=== PATIENT | male | born 1945 | race African-American/Black ===

== ENCOUNTER 2018-07-17 11:20 | Inpatient (IN) ==
[2018-07-17] MEDS ORDERED: Morphine Inj 4 MG/ML Vial IV.PUSH ONE (11:38)
[2018-07-17] MEDS ORDERED: Sod Chloride 0.9% Inj 1,000 ML IV.SIG ONE (11:38)
[2018-07-17 12:10] LABS: Baso % (Auto) 0.5 % (0.0-2.0); Eos # (Auto) 0.1 th/mm3 (0.0-0.4); Hematocrit 43.6 % (39.0-51.0); Hemoglobin 14.4 gm/dL (13.0-17.0); Lymph # (Auto) 1.5 th/mm3 (1.0-4.8); Lymph % (Auto) 42.2 % (9.0-44.0); Mean Corpuscular HGB Conc 33.1 % (32.0-36.0); Mean Corpuscular Hemoglobin 30.8 pg (27.0-34.0); Mean Corpuscular Volume 93.2 fL (80.0-100.0); Mean Platelet Volume 9.2 fL (7.0-11.0); Mono # (Auto) 0.3 th/mm3 (0.0-0.9); Mono % (Auto) 7.8 % (0.0-8.0); Neut # (Auto) 1.7 th/mm3 (1.8-7.7); Neut % (Auto) 47.5 % (16.0-70.0); Platelet Count 135 th/mm3 (150-450); Red Blood Count 4.68 mil/mm3 (4.50-5.90); Red Cell Distribution Width 13.9 % (11.6-17.2); White Blood Count 3.5 th/mm3 (4.0-11.0)
--- NOTE | 2018-07-17 12:23 | ED ---
HPI General Chief complaint: Nausea/Vomiting/Diarrhea Stated complaint: GI Time Seen by Provider: 07/17/18 11:34 Source: patient and family Mode of arrival: ambulatory Limitations: no limitations History of Present Illness HPI Narrative: 72-year-old male the presents to the ED for evaluation of nausea vomiting diarrhea and abdominal pain. Patient reports that the symptoms have been ongoing for about 3 days but worse today. Per patient the pain is mostly in the lower abdomen. Per patient he feels like he has gas and he continues to have gas. Per patient he does not get relief. He does not take anything for this. He denies any diarrhea but states that he is on multiple bowels today. He states that he has not vomited but he does feel nauseous and feels like something is going to the top of his chest. Per patient is was yesterday but not today. Per patient he came here because the symptoms are not improving. Per patient the pain is 8 out of 10. Denies any chest pain. No shortness of breath. No fevers chills or sweats. Related Data Home Medications Medication Instructions Recorded Confirmed atorvastatin 40 mg PO DAILY 07/17/18 07/17/18 metoprolol succinate 50 mg PO DAILY 07/17/18 07/17/18 pantoprazole [Protonix] 40 mg PO DAILY 07/17/18 07/17/18 tamsulosin 0.4 mg PO DAILY 07/17/18 07/17/18 Allergies Allergy/AdvReac Type Severity Reaction Status Date / Time No Known Allergies Allergy Verified 07/17/18 11:34 Review of Systems ROS: all other systems reviewed are negative [facility] Medical History Medical History BPH (benign prostatic hyperplasia) (Acute) GERD (gastroesophageal reflux disease) (Acute) High cholesterol (Acute) Hypertension (Acute) Surgical History Surgical History H/O cervical spine surgery (Acute) History of colon surgery (Acute) History of left cataract surgery (Acute) S/P triple vessel bypass (Acute) Family History Family History Other Family history unknown Social History Social History Substance History: No History of Abuse Second Hand Smoke Exposure: No Smoking Status: Former smoker Tobacco Type: Cigarettes How Often Do You Have a Drink Containing Alcohol: Never Hx Recent Travel: No Recent Travel in [facility] within the Last 8 Weeks: No Recent Out of Country Travel within the Last 8 Weeks: No Immunization History Tetanus Immunization: <5 Years Exam Narrative Exam Narrative: GENERAL: Well appearing SKIN: Focused skin assessment warm/dry. HEAD: Atraumatic. Normocephalic. EYES: Pupils equal and round. No scleral icterus. No injection or drainage. ENT: No nasal bleeding or discharge. Mucous membranes pink and moist. NECK: Trachea midline. No JVD. CARDIOVASCULAR: Regular rate and rhythm. No murmur appreciated. RESPIRATORY: No accessory muscle use. Clear to auscultation. Breath sounds equal bilaterally. GASTROINTESTINAL: Abdomen soft, depressible pain on the lower abdomen., nondistended. Hepatic and splenic margins not palpable. MUSCULOSKELETAL: No obvious deformities. No clubbing. No cyanosis. No edema. Full range of motion of the upper and lower extremities bilaterally. 2+ pulses bilaterally. NEUROLOGICAL: Awake and alert. No obvious cranial nerve deficits. Motor grossly within normal limits. Normal speech. PSYCHIATRIC: Appropriate mood and affect; insight and judgment normal. Course Initial Documented Vital Signs Temperature 97.2 F L 07/17/18 11:32 Pulse Rate 53 L 07/17/18 11:32 Blood Pressure 145/83 H 07/17/18 11:32 Pulse Oximetry 98 07/17/18 11:32 Last Documented Vital Signs Temperature 97.2 F L 07/17/18 11:32 Pulse Rate 45 L 07/17/18 15:33 Respiratory Rate 18 07/17/18 15:33 Blood Pressure 177/85 H 07/17/18 15:33 Pulse Oximetry 100 07/17/18 15:33 Medical Decision Making [facility] Narrative Medical decision making narrative: 72-year-old male the presents to the ED for evaluation of abdominal pain. Patient was properly examined and found to have signs and symptoms consistent appears to be abdominal pain. Labs and imaging ordered. IV fluids, pain medications and antiemetics given. Labs and imaging showed what appears to be possible small bowel obstruction. Otherwise lab work unremarkable. Patient is also bradycardic on EKG. He is completely symptomatic from the bradycardia. At this time recommendations admission for NG tube placement and further evaluation and treatment. Patient agrees with this plan. Case discussed with my attending Dr. Figueroa who was made aware of findings and agrees with plan. Patient was admitted to Dr. Carreon who agrees admission to his service. Medical Screen Exam Complete: Yes Emergency Medical Condition: Yes Differential Diagnosis Differential Diagnosis: Colitis versus diverticulitis versus acute abdomen versus gastroenteritis versus obstruction Medical Records Medical records reviewed: Yes I reviewed the patient's medical records. Lab Data Lab results reviewed: Yes I reviewed the patient's lab results. Result diagrams: 07/17/18 12:00 07/17/18 12:00 Lab Results 07/17/18 07/17/18 07/17/18 Range/Units 12:00 12:00 12:00 WBC 3.5 L (4.0-11.0) th/mm3 RBC 4.68 (4.50-5.90) mil/mm3 Hgb 14.4 (13.0-17.0) gm/dL Hct 43.6 (39.0-51.0) % MCV 93.2 (80.0-100.0) fL MCH 30.8 (27.0-34.0) pg MCHC 33.1 (32.0-36.0) % RDW 13.9 (11.6-17.2) % Plt Count 135 L (150-450) th/mm3 MPV 9.2 (7.0-11.0) fL Neut % (Auto) 47.5 (16.0-70.0) % Lymph % (Auto) 42.2 (9.0-44.0) % [place] % (Auto) 7.8 (0.0-8.0) % Eos % (Auto) 2.0 (0.0-4.0) % Baso % (Auto) 0.5 (0.0-2.0) % Neut # (Auto) 1.7 L (1.8-7.7) th/mm3 Lymph # (Auto) 1.5 (1.0-4.8) th/mm3 [place] # (Auto) 0.3 (0.0-0.9) th/mm3 Eos # (Auto) 0.1 (0.0-0.4) th/mm3 Baso # (Auto) 0.0 (0.0-0.2) th/mm3 WBC Differential . Differential Comment Auto diff final Sodium 140 (136-145) meq/L Potassium 4.2 (3.5-5.1) meq/L Chloride 106 (98-107) meq/L Carbon Dioxide 27.4 (21.0-32.0) meq/L Anion Gap 7 (5-15) meq/L BUN 12 (7-18) mg/dL Creatinine 1.10 (0.60-1.30) mg/dL Estimated GFR 80 L (>89) mL/min Random Glucose 107 H (74-106) mg/dL Lactic Acid 0.8 (0.4-2.0) mmol/L Calcium 8.3 L (8.5-10.1) mg/dL Total Bilirubin 0.5 (0.2-1.0) mg/dL AST 12 L (15-37) U/L ALT 20 (12-78) U/L Alkaline Phosphatase 79 (45-117) U/L Troponin I (0.02-0.05) ng/mL Total Protein 7.6 (6.4-8.2) g/dL Albumin 3.6 (3.4-5.0) g/dL Lipase 58 L (73-393) U/L Urine Color (Yellw/Straw) Urine Clarity (Clear) Urine pH (5.0-8.5) Ur Specific [place] (1.002-1.035) Urine Protein (Neg-Trace) mg/dL Urine Glucose (UA) (Negative) mg/dL Urine Ketones (Negative) mg/dL Urine Occult Blood (Negative) Urine Nitrate (Negative) Urine Bilirubin (Negative) Urine Urobilinogen (Less than 2) mg/dL Ur Leukocyte Esterase (Negative) Urine RBC (0-3) /hpf Urine WBC (0-5) /hpf Urine Mucus (Occasional) /lpf Micro UA Comment Ur Microscopic Review Urine Culture Comments 07/17/18 07/17/18 Range/Units 12:00 12:15 WBC (4.0-11.0) th/mm3 RBC (4.50-5.90) mil/mm3 Hgb (13.0-17.0) gm/dL Hct (39.0-51.0) % MCV (80.0-100.0) fL MCH (27.0-34.0) pg MCHC (32.0-36.0) % RDW (11.6-17.2) % Plt Count (150-450) th/mm3 MPV (7.0-11.0) fL Neut % (Auto) (16.0-70.0) % Lymph % (Auto) (9.0-44.0) % [place] % (Auto) (0.0-8.0) % Eos % (Auto) (0.0-4.0) % Baso % (Auto) (0.0-2.0) % Neut # (Auto) (1.8-7.7) th/mm3 Lymph # (Auto) (1.0-4.8) th/mm3 [place] # (Auto) (0.0-0.9) th/mm3 Eos # (Auto) (0.0-0.4) th/mm3 Baso # (Auto) (0.0-0.2) th/mm3 WBC Differential Differential Comment Sodium (136-145) meq/L Potassium (3.5-5.1) meq/L Chloride (98-107) meq/L Carbon Dioxide (21.0-32.0) meq/L Anion Gap (5-15) meq/L BUN (7-18) mg/dL Creatinine (0.60-1.30) mg/dL Estimated GFR (>89) mL/min Random Glucose (74-106) mg/dL Lactic Acid (0.4-2.0) mmol/L Calcium (8.5-10.1) mg/dL Total Bilirubin (0.2-1.0) mg/dL AST (15-37) U/L ALT (12-78) U/L Alkaline Phosphatase (45-117) U/L Troponin I Less than 0.02 L (0.02-0.05) ng/mL Total Protein (6.4-8.2) g/dL Albumin (3.4-5.0) g/dL Lipase (73-393) U/L Urine Color Yellow (Yellw/Straw) Urine Clarity Hazy H (Clear) Urine pH 5.0 (5.0-8.5) Ur Specific [place] 1.016 (1.002-1.035) Urine Protein Negative (Neg-Trace) mg/dL Urine Glucose (UA) Negative (Negative) mg/dL Urine Ketones Negative (Negative) mg/dL Urine Occult Blood Negative (Negative) Urine Nitrate Negative (Negative) Urine Bilirubin Negative (Negative) Urine Urobilinogen Less than 2 (Less than 2) mg/dL Ur Leukocyte Esterase Negative (Negative) Urine RBC Less than 1 (0-3) /hpf Urine WBC 1 (0-5) /hpf Urine Mucus Few H (Occasional) /lpf Micro UA Comment Culture not ind Ur Microscopic Review Not Reportable Urine Culture Comments Culture not ind Imaging Data Attestation: I personally reviewed and interpreted this imaging study as follows : Radiologist's impression: Abdomen/Pelvis CT 07/17/18 11:38 CONCLUSION: 1. Several loops of marginally distended proximal ileum in the left abdomen with mild fecalization and diffuse bowel wall thickening. Relative transition point in the midabdomen and left upper quadrant with decompressed proximal and distal bowel loops. Overall findings are most consistent with a partial small bowel obstruction likely secondary to adhesions. Findings are new since 2016 although the fecalization suggests a somewhat subacute etiology. No evidence for bowel infarction or perforation. 2. 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 3. Stable additional ancillary findings, as above. Abdomen X-Ray 07/17/18 15:41 CONCLUSION: 1. NGT just beyond the GE junction in the stomach. 2. Partially distended air-filled small bowel loops in the upper abdomen consistent with findings on CT exam earlier today. ECG Data Attestation: I personally reviewed and interpreted this ECG as follows: Interpretation: EKG shows sinus bradycardia with no sign of acute ischemia. No ST elevations. Read by me and attending. Discharge Plan Discharge Disposition Patient Disposition: 30 Still Patient Discharge Details Diagnosis: Small bowel obstruction Physicians Team ED Provider: Kathrin Figueroa ED Midlevel Provider: Duc Allan Primary Care Provider: Layla Chirinos Attending Provider: Harvinder Carreon Other Providers: Jakub Conner ; [employer] Status ED Status: Admitted Patient
[2018-07-17 12:34] LABS: Alanine Aminotransferase 20 U/L (12-78); Albumin 3.6 g/dL (3.4-5.0); Anion Gap 7 meq/L (5-15); Aspartate Aminotransferase 12 U/L (15-37); Blood Urea Nitrogen 12 mg/dL (7-18); Calcium 8.3 mg/dL (8.5-10.1); Carbon Dioxide 27.4 meq/L (21.0-32.0); Chloride 106 meq/L (98-107); Glomerular Filtration Rate 80 mL/min (>89); Glucose,Random 107 mg/dL (74-106); Lipase 58 U/L (73-393); Potassium 4.2 meq/L (3.5-5.1); Sodium 140 meq/L (136-145)
[2018-07-17 12:37] LABS: Alkaline Phosphatase 79 U/L (45-117); Total Protein 7.6 g/dL (6.4-8.2)
[2018-07-17 12:47] LABS: Bilirubin,Urine Negative (Negative); Clarity,Urine Hazy (Clear); Color,Urine Yellow (Yellw/Straw); Glucose,Urine (UA) Negative (Negative); Leukocyte Esterase,Urine Negative (Negative); Mucus,Urine Few /lpf (Occasional); Nitrite,Urine Negative (Negative); Specific Gravity,Urine 1.016 (1.002-1.035)
--- NOTE | 2018-07-17 15:16 | CT ---
EXAM DATE: 07/17/2018 2:47 PM EDT AGE/SEX: 72 years / Male INDICATIONS: Abdomen pain with nausea, vomiting, and diarrhea CLINICAL DATA: This is the patient's initial encounter. Patient reports that signs and symptoms have been present for 3 days and indicates a pain score of 5/10. MEDICAL/SURGICAL HISTORY: Hypertension. . Colon surgery, Triple bypass surgery ORAL CONTRAST: No oral contrast ingested. RADIATION DOSE: 7.01 CTDI (mGy) COMPARISON: [facility], CTA AORTA W/ RUNOFF, 09/09/2017. . TECHNIQUE: Multiple contiguous axial images were obtained through the abdomen and pelvis following b olus infusion of 96ML ml Omnipaque 350 (iohexol) nonionic water-soluble contrast as a single exam d ose. No oral contrast ingested. Using automated exposure control and adjustment of the mA and/or kV according to patient size, radiation dose was kept as low as reasonably achievable to obtain optimal diagnostic quality images. DICOM format image data is available electronically for review and compar pamela. FINDINGS: LOWER LUNGS: Minimal groundglass opacities at the lung bases. LIVER: Mild diffusely decreased hepatic density without gross focal mass or intrapelvic ductal dilat ation. SPLEEN: Homogeneous density without enlargement. PANCREAS: Unremarkable without mass or calcification. KIDNEYS: Kidneys demonstrate symmetrical enhancement and are symmetrical in size without evidence fo r radiopaque renal calculi or hydronephrosis. ADRENAL GLANDS: Unremarkable. AORTA: Mild to moderate diffuse atherosclerotic calcifications. Focal distal aortic ectasia measuring up to 2.5 cm. Left common iliac artery aneurysm containing moderate mural thrombus measuring up to 2 .2 cm. There is mild stenosis of the distal common iliac arteries secondary to nearly circumferential mural thrombus/noncalcified plaque. BOWEL/MESENTERY: There are several loops of proximal ileum in the left abdomen that demonstrates cir cumferential wall thickening and are marginally distended with fluid and demonstrated mild fecalizati on. This is a new finding from 09/09/2017 CT exam. More proximal jejunal and distal ileal loops are no rmal in caliber with relative transition points in the anterior mid abdomen and left upper quadrant. Mild sigmoid diverticulosis without inflammatory change to suggest diverticulitis. Surgical anastomos is in the ascending colon. No significant free fluid or drainable fluid collection. No free air. ABDOMINAL WALL: Intact. RETROPERITONEUM: No evidence of adenopathy in the retrocrural, para-aortic, or deep pelvic regions. BLADDER: Contours are smooth. REPRODUCTIVE: No abnormal masses or calcifications seen. BONY STRUCTURES: Degenerative spondylosis of the lower lumbar spine most prominently at L5-S1. CONCLUSION: 1. Several loops of marginally distended proximal ileum in the left abdomen with mild fecalization a nd diffuse bowel wall thickening. Relative transition point in the midabdomen and left upper quadrant with decompressed proximal and distal bowel loops. Overall findings are most consistent with a parti al small bowel obstruction likely secondary to adhesions. Findings are new since 09/09/2017 although t he fecalization suggests a somewhat subacute etiology. No evidence for bowel infarction or perforatio n. 2. 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 3. Stable additional ancillary findings, as above. Electronically signed by: Randell Fraire MD 07/17/2018 3:15 PM EDT
[2018-07-17] MEDS ORDERED: Bisacodyl 10 MG Supp RECTAL PRN (15:46)
[2018-07-17] MEDS ORDERED: Morphine Inj 4 MG/ML Vial IV.PUSH PRN ×2 (15:48)
[2018-07-17] MEDS ORDERED: Naloxone Inj 0.4 MG/ML Vial IV.PUSH PRN (15:48)
[2018-07-17] MEDS: Heparin - SQ 10,000 UNITS/ML Vial SQ SCH ×2 (16:00→23:33)
--- NOTE | 2018-07-17 16:00 | XR ---
EXAM DATE: 07/17/2018 3:41 PM EDT AGE/SEX: 72 years / Male INDICATIONS: NG tube placement CLINICAL DATA: This is the patient's initial encounter. Patient reports that signs and symptoms have been present for 1 day and indicates a pain score of 0/10. MEDICAL/SURGICAL HISTORY: . Hypertension. . . Colon surgery, Triple bypass surgery COMPARISON: [facility] [place], CT ABDOMEN & PELVIS W CONTRAST, 07/17/2018. . FINDINGS: There is an NGT with tip in the proximal stomach. Multiple loops of marginally distended air-filled b owel in the upper abdomen. No free air or pneumatosis. Air is seen in the colon. Osseous structures a re intact. CONCLUSION: 1. NGT just beyond the GE junction in the stomach. 2. Partially distended air-filled small bowel loops in the upper abdomen consistent with findings on CT exam earlier today. Electronically signed by: Randell Fraire MD 07/17/2018 3:59 PM EDT
[2018-07-17] MEDS: KCL 20 mEq/D5W/NaCl 0.45% Inj 1,000 ML IV.CONT SCH (16:19)
--- NOTE | 2018-07-17 16:46 | P.HPIM ---
History of Present Illness Service: [facility] Primary Care Physician: Layla Chirinos MD Chief Complaint: NAUSEA/VOMITING/DIARRHEA History of Present Illness: Patient is a 72-year-old -[place] gentleman who presented to the emergency department for evaluation of nausea and vomiting and diarrhea and abdominal pain. Patient reported symptoms have been ongoing for at least the past 3 days but have worsened today. Pain is mostly in the lower abdomen. Patient feels like he has gas and continues to have gas. Patient has not had any real relief. Has not taken anything from this. Has had some multiple bowel movements. Not sure if they are true diarrhea more more she. States that he has not vomited but is felt nauseated and feels like something is pushing up. Had this yesterday but not today. When patient came in here because symptoms have not improved pain is 8 out of 10 he denies any chest pain. Denies any shortness of breath. Denies any fevers or chills or sweats. Past medical history is significant for hyperlipidemia hypertension GERD and BPH as well as history of cervical surgical repair as well as left cataract surgery. Family history is unknown Inpatient Certification: I certify that the inpatient services were ordered in accordance with Medicare regulations governing the order. This includes certification that hospital inpatient services are reasonable and necessary and in the case of services not specified as inpatient-only under 42 CFR 419.22(n), that they are appropriately provided as inpatient services in accordance to with the 2-midnight benchmark under 43 CFR 412.3(e) Estimated Total Length of Stay (Days): 3 Plans for Post Hospital Care: Not yet determined Review of Systems All other systems reviewed negative except as stated in HPI [facility] - History History Provided By: Patient - Medical History Medical History: Medical History (Last Updated 07/17/18 @ 16:39 by Harvinder Carreon DO) BPH (benign prostatic hyperplasia) GERD (gastroesophageal reflux disease) High cholesterol Hypertension - Surgical History Surgical History: Surgical History (Last Updated 07/17/18 @ 16:39 by Harvinder Carreon DO) H/O cervical spine surgery History of colon surgery History of left cataract surgery S/P triple vessel bypass - Family History Family History: Family History (Last Updated 07/17/18 @ 16:39 by Harvinder Carreon DO) Other Family history unknown - Social History I have reviewed the patient's Social History: Yes - Tobacco History Second Hand Smoke Exposure: No Smoking Status: Former smoker Tobacco Type: Cigarettes - Alcohol History How Often Do You Have a Drink Containing Alcohol: Never - Substance Use History Substance History: No History of Abuse - Travel History History of Recent Travel: No Recent Travel in the [place] Within the Last 8 Weeks: No Recent Travel Out of the Country Within the Last 8 Weeks: No - Immunization History Tetanus Immunization: <5 Years Medications and Allergies Active Medications: Active Medications Acetaminophen (Tylenol) 650 mg PO Q4H PRN PRN Reason: Temp > 100.4 Al Hydroxide/Mg Hydroxide (Milk Of Magnesia Liq) 30 ml PO Q12H PRN PRN Reason: Mild Constipation Bisacodyl (Dulcolax Supp) 10 mg RECTAL DAILY PRN PRN Reason: SEVERE CONSITIPATION Heparin Sodium (Porcine) (Heparin Inj) 5,000 units SQ Q8H [facility] Last Admin: 07/17/18 16:00 Dose: Not Given Potassium Chloride/Dextrose/Sod Cl (D5w/1/2ns + Kcl 20 Meq Inj) 1,000 mls @ 100 mls/hr IV.CONT .Q10H [facility] Last Admin: 07/17/18 16:19 Dose: 100 mls/hr Lactulose (Lactulose Liq) 30 ml PO DAILY PRN PRN Reason: SEVERE CONSITIPATION Metoprolol Succinate (Toprol Xl) 50 mg PO DAILY [facility] Morphine Sulfate (Morphine Inj) 2 mg IV.PUSH Q3H PRN PRN Reason: PAIN 3-5; IF UABLE TO TAKE PO Morphine Sulfate (Morphine Inj) 4 mg IV.PUSH Q3H PRN PRN Reason: PAIN 6-10;IF UNABLE TO TAKE PO Morphine Sulfate (Morphine Inj) 4 mg IV.PUSH Q3H PRN PRN Reason: BREAKTHROUGH PAIN Morphine Sulfate (Morphine Inj) 4 mg IV.PUSH Q1H PRN PRN Reason: Pain Scale 7-10 (Intractable) Naloxone HCl (Narcan Inj) 0.4 mg IV.PUSH UNSCH PRN PRN Reason: SEE LABEL COMMENTS Ondansetron HCl (Zofran Inj) 4 mg IV.PUSH Q6H PRN PRN Reason: NAUSEA OR VOMITING Oxycodone/Acetaminophen (Percocet 10/325 Mg) 1 tab PO Q6H PRN PRN Reason: PAIN SCALE 6 TO 10 Oxycodone/Acetaminophen (Percocet 5/325 Mg) 1 tab PO Q6H PRN PRN Reason: PAIN SCALE 3 TO 5 Pantoprazole Sodium (Protonix Inj) 40 mg IV.PUSH Q24H [facility] Senna/Docusate Sodium (Beth-Colace) 1 tab PO BID [facility] Sennosides (Senokot) 17.2 mg PO Q12H PRN PRN Reason: Moderate Constipation Tamsulosin HCl (Flomax) 0.4 mg PO DAILY [facility] Allergies Allergy/AdvReac Type Severity Reaction Status Date / Time No Known Allergies Allergy Verified 07/17/18 11:34 Home Medications Medication Instructions Recorded Confirmed Type atorvastatin 40 mg PO DAILY 07/17/18 07/17/18 History metoprolol succinate 50 mg PO DAILY 07/17/18 07/17/18 History pantoprazole [Protonix] 40 mg PO DAILY 07/17/18 07/17/18 History tamsulosin 0.4 mg PO DAILY 07/17/18 07/17/18 History Exam Vital signs: Vital Signs 07/17/18 11:32 07/17/18 11:33 07/17/18 15:33 Temperature 97.2 F L Pulse Rate 53 L 62 45 L Respiratory Rate 20 18 Blood Pressure 145/83 H 148/78 H 177/85 H Pulse Oximetry 98 98 100 Intake & Output 07/16/18 07/17/18 07/17/18 18:59 06:59 18:59 Weight 83.461 kg Narrative: GENERAL: Awake alert and oriented x3 talkative and cooperative SKIN: Warm and dry. HEAD: Atraumatic. Normocephalic. Has an NG tube in his nares EYES: Pupils equal and round. No scleral icterus. No injection or drainage. EOMI ENT: No nasal bleeding or discharge. Mucous membranes pink and moist. Tongue is midline NECK: Trachea midline. No JVD. Supple CARDIOVASCULAR: Regular rate and rhythm. S1-S2 no S3 or S4 has a midline incision that is well-healed RESPIRATORY: No accessory muscle use. Clear to auscultation. Breath sounds equal bilaterally. GASTROINTESTINAL: Abdomen mildly tender but just had pain medications. Hepatic and splenic margins not palpable. Distended somewhat tympanic MUSCULOSKELETAL: Extremities without clubbing, cyanosis, or edema. No obvious deformities. NEUROLOGICAL: Awake and alert. No obvious cranial nerve deficits. Motor grossly within normal limits. Five out of 5 muscle strength in the arms and legs. Normal speech. PSYCHIATRIC: Appropriate mood and affect; insight and judgment normal. Results - Labs CBC & Chem 7: 07/17/18 12:00 07/17/18 12:00 Labs: Short CBC 07/17/18 Range/Units 12:00 WBC 3.5 L (4.0-11.0) th/mm3 Hgb 14.4 (13.0-17.0) gm/dL Hct 43.6 (39.0-51.0) % Plt Count 135 L (150-450) th/mm3 BMP 07/17/18 12:00 Sodium 140 Potassium 4.2 Chloride 106 Carbon Dioxide 27.4 BUN 12 Creatinine 1.10 Calcium 8.3 L Cardiac Enzymes 07/17/18 Range/Units 12:00 Troponin I Less than 0.02 L (0.02-0.05) ng/mL Liver Function 07/17/18 Range/Units 12:00 Total Bilirubin 0.5 (0.2-1.0) mg/dL AST 12 L (15-37) U/L ALT 20 (12-78) U/L Alkaline Phosphatase 79 (45-117) U/L Albumin 3.6 (3.4-5.0) g/dL Urine 07/17/18 Range/Units 12:15 Urine Color Yellow (Yellw/Straw) Urine Clarity Hazy H (Clear) Urine pH 5.0 (5.0-8.5) Ur Specific [place] 1.016 (1.002-1.035) Urine Protein Negative (Neg-Trace) mg/dL Urine Glucose (UA) Negative (Negative) mg/dL - Imaging Impressions Abdomen/Pelvis CT 07/17/18 11:38 CONCLUSION: 1. Several loops of marginally distended proximal ileum in the left abdomen with mild fecalization and diffuse bowel wall thickening. Relative transition point in the midabdomen and left upper quadrant with decompressed proximal and distal bowel loops. Overall findings are most consistent with a partial small bowel obstruction likely secondary to adhesions. Findings are new since 2016 although the fecalization suggests a somewhat subacute etiology. No evidence for bowel infarction or perforation. 2. 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 3. Stable additional ancillary findings, as above. Abdomen X-Ray 07/17/18 15:41 CONCLUSION: 1. NGT just beyond the GE junction in the stomach. 2. Partially distended air-filled small bowel loops in the upper abdomen consistent with findings on CT exam earlier today. Caprini VTE Risk Assessment Caprini VTE Risk Assessment: Moderate/High Risk (score >= 2) Caprini Risk Assessment Model: Point Value = 1 Point Value = 2 Point Value = 3 Point Value = 5 Age 41-60 Minor surgery BMI > 25 kg/m2 Swollen legs Varicose veins or History of unexplained or recurrent spontaneous Oral contraceptives or hormone replacement Sepsis (< 1 month) Serious lung disease, including pneumonia (< 1 month) Abnormal pulmonary function Acute myocardial infarction Congestive heart failure (< 1 month) History of inflammatory bowel disease Medical patient at bed rest Age 61-74 Arthroscopic surgery Major open surgery (> 45 min) Laparoscopic surgery (> 45 min) Malignancy Confined to bed (> 72 hours) Immobilizing plaster cast Central venous access Age >= 75 History of VTE Family history of VTE Factor V Leiden Prothrombin [id number] Lupus anticoagulant Anticardiolipin antibodies Elevated serum homocysteine Heparin-induced thrombocytopenia Other congenital or acquired thrombophilia Stroke (< 1 month) Elective arthroplasty Hip, pelvis, or leg fracture Acute spinal cord injury (< 1 month) Prophylaxis Regimen: Total Risk Factor Score Risk Level Prophylaxis Regimen 0-1 Low Early ambulation 2 Moderate Order ONE of the following: *Sequential Compression Device (SCD) *Heparin 5000 units SQ BID 3-4 Higher Order ONE of the following medications: *Heparin 5000 units SQ TID *Enoxaparin/Lovenox 40 mg SQ daily (WT < 150 kg, CrCl > 30 mL/min) *Enoxaparin/Lovenox 30 mg SQ daily (WT < 150 kg, CrCl > 10-29 mL/min) *Enoxaparin/Lovenox 30 mg SQ BID (WT < 150 kg, CrCl > 30 mL/min) AND/OR *Sequential Compression Device (SCD) 5 or more Highest Order ONE of the following medications: *Heparin 5000 units SQ TID (Preferred with Epidurals) *Enoxaparin/Lovenox 40 mg SQ daily (WT < 150 kg, CrCl > 30 mL/min) *Enoxaparin/Lovenox 30 mg SQ daily (WT < 150 kg, CrCl > 10-29 mL/min) *Enoxaparin/Lovenox 30 mg SQ BID (WT < 150 kg, CrCl > 30 mL/min) AND *Sequential Compression Device (SCD) Assessment and Plan - Plan Small bowel obstruction Abdominal pain History of colonic resection -Pain control -NG tube to low intermittent suction -GERD prevention with Protonix Surgery consult Hypertension -Resume home medications BPH resume home medication Hyperlipidemia hold his statin at this time GERD continue on Protonix but may get IV Coronary artery disease history of CABG stable Pain control A.m. labs DVT prophylaxis with heparin 5000 units subcu every 8 hours GI prophylaxis with Protonix IV Code Status: Full code Discussed Condition With: RN and patient and family and emergency room PA Discharge Planning: Once cleared by surgery and tolerating a diet
[2018-07-17] MEDS: Pantoprazole Inj 40 MG Vial IV.PUSH SCH (17:16)
--- NOTE | 2018-07-17 21:24 | MB ---
cc: Jakub Conner MD, Ricardo PA DATE: 07/17/2018 PHYSICIAN REQUESTING CONSULTATION: OSCAR García REASON FOR CONSULTATION: Small-bowel obstruction. HISTORY OF PRESENT ILLNESS: This is a 72-year-old male with a past medical and surgical history of a partial colectomy performed approximately 15 years ago, who presented to [facility] with a partial small-bowel obstruction. The patient states that he was told to eat less meat and more fruits and vegetables and he has been eating a lot of salads with lots of nuts, and every time he would eat, he would developed bloating and abdominal pain that would take several hours to resolve. He really denies any significant vomiting, and he continues to have bowel movements irregularly. He has had no fevers, chills, night sweats or any other complaints. This had been going on for several days. The patient was seen in the emergency department at [facility] and underwent a CT scan which showed at least a partial bowel obstruction at the mid small bowel at the area of the patient's associated midline scar. The patient's white blood cell count was within normal limits. The patient was admitted to medicine for nonoperative management of the patient's small-bowel obstruction as well as management of his medical problems. General surgery was consulted for assistance. REVIEW OF SYSTEMS: A 12-point review of systems conducted with the patient is negative except for the pertinent positives mentioned above in the history of present illness. PAST MEDICAL HISTORY: BPH, GERD, high cholesterol, hypertension, history of colon cancer with last colonoscopy less than 5 years ago that he states was unremarkable. PAST SURGICAL HISTORY: History of colon surgery for cancer, he says, at least 15 years ago done here locally but he cannot remember the surgeon who did it, status post triple bypass surgery for coronary artery disease, status post cervical spine surgery, status post cataract surgery. ALLERGIES: NO KNOWN DRUG ALLERGIES. HOME MEDICATIONS: 1. Atorvastatin. 2. Metoprolol. 3. Protonix. 4. Tamsulosin. SOCIAL HISTORY: The patient is a former cigarette and tobacco user. No alcohol, tobacco or illicit drugs at this time. FAMILY HISTORY: Reviewed and is noncontributory to process. PHYSICAL EXAMINATION: VITAL SIGNS: Temperature 97.2 degrees, heart rate 45, blood pressure 177/85, O2 saturation 100%. GENERAL: The patient is a well-developed, well-nourished male in no acute distress. HEENT: Head is normocephalic, atraumatic. Pupils round, reactive and accommodating to light. Sclerae are anicteric. Oral cavity is clear. NG tube is in place with biliary drainage. NECK: Supple. No JVD. No lymphadenopathy. LUNGS: Breath sounds present bilaterally. Nonlabored breathing pattern. HEART: Regular rate and rhythm. No murmurs. ABDOMEN: Soft, mildly distended and some midline tenderness subjectively without peritonitis or rebound tenderness. Normal bowel sounds. Midline scar is dense in the midline without hernia. BACK: No CVA tenderness. EXTREMITIES: No clubbing, cyanosis or edema. NEUROLOGIC: The patient is alert and oriented x 3. Mood, judgment and insight are intact. Cranial nerves 2-12 are grossly intact. Nonfocal peripheral exam. LABORATORY VALUES: White blood cell count 3.5, hemoglobin 14.4. IMAGING: CT scan shows a partial small-bowel obstruction in the mid small bowel. No other acute findings. ASSESSMENT AND PLAN: The patient is a 72-year-old male with a partial small-bowel obstruction. I agree with the current medical management with nonoperative management, nasogastric tube, intravenous fluids and supportive care. The patient has no indication for any acute surgical intervention and no signs of bowel ischemia. I discussed the diagnosis with the patient and discussed the role of surgery for nonresolution acutely as well as electively for adhesiolysis. I did discuss nonoperative management acutely as well as long-term with diet modifications to minimize bulky fiber items such as nuts, etc. He agrees with the plan and all questions were answered to his satisfaction. We will follow along with the patient. Thank you very much for this consultation. MD JAMES Muñoz/ely , 06:19 PM , 06:27 PM
[2018-07-17] MEDS: Senna/Docusate Sodium 8.6/50 MG Tablet PO SCH (21:48)
[2018-07-18] MEDS ORDERED: Phenol 1.4% 180 ML Spray Bottle OROPHARYNG PRN (02:04)
[2018-07-18] MEDS: KCL 20 mEq/D5W/NaCl 0.45% Inj 1,000 ML IV.CONT SCH ×3 (03:39→22:34)
[2018-07-18 07:07] LABS: Baso % (Auto) 0.4 % (0.0-2.0); Eos # (Auto) 0.1 th/mm3 (0.0-0.4); Eos % (Auto) 2.6 % (0.0-4.0); Hematocrit 41.3 % (39.0-51.0); Hemoglobin 13.7 gm/dL (13.0-17.0); Lymph # (Auto) 0.8 th/mm3 (1.0-4.8); Lymph % (Auto) 35.4 % (9.0-44.0); Mean Corpuscular HGB Conc 33.1 % (32.0-36.0); Mean Corpuscular Hemoglobin 30.7 pg (27.0-34.0); Mean Corpuscular Volume 92.8 fL (80.0-100.0); Mean Platelet Volume 9.7 fL (7.0-11.0); Mono # (Auto) 0.2 th/mm3 (0.0-0.9); Mono % (Auto) 9.2 % (0.0-8.0); Neut # (Auto) 1.2 th/mm3 (1.8-7.7); Neut % (Auto) 52.4 % (16.0-70.0); Platelet Count 116 th/mm3 (150-450); Red Blood Count 4.45 mil/mm3 (4.50-5.90); Red Cell Distribution Width 13.9 % (11.6-17.2); White Blood Count 2.4 th/mm3 (4.0-11.0)
[2018-07-18 07:26] LABS: INR 1.1 Ratio; Prothrombin Time 10.7 sec (9.8-11.6)
[2018-07-18 07:38] LABS: Albumin 3.3 g/dL (3.4-5.0); Anion Gap 9 meq/L (5-15); Aspartate Aminotransferase 14 U/L (15-37); Blood Urea Nitrogen 6 mg/dL (7-18); Calcium 8.6 mg/dL (8.5-10.1); Carbon Dioxide 27.1 meq/L (21.0-32.0); Chloride 105 meq/L (98-107); Glomerular Filtration Rate Greater Than 89 mL/min (>89); Glucose,Random 108 mg/dL (74-106); Magnesium 1.9 mg/dL (1.5-2.5); Potassium 3.7 meq/L (3.5-5.1); Sodium 141 meq/L (136-145)
[2018-07-18 07:39] LABS: Alanine Aminotransferase 19 U/L (12-78); Cholesterol 132 mg/dL (120-200); Phosphorus 2.4 mg/dL (2.5-4.9)
[2018-07-18 07:48] LABS: Alkaline Phosphatase 72 U/L (45-117); Chol/HDL Ratio 3.47 Ratio; LDL Cholesterol,Calculated 79 mg/dL (0-99); Total Protein 7.1 g/dL (6.4-8.2); Triglycerides 76 mg/dL (42-150)
[2018-07-18] MEDS: Heparin - SQ 10,000 UNITS/ML Vial SQ SCH ×2 (08:18→17:50)
[2018-07-18] MEDS: Senna/Docusate Sodium 8.6/50 MG Tablet PO SCH ×2 (08:19→20:38)
--- NOTE | 2018-07-18 09:50 | P.PNGS ---
Subjective Interval history: Resting in bed at bedside No flatus Physical Exam Vital signs: Vital Signs 07/17/18 11:32 07/17/18 11:33 07/17/18 15:33 Temperature 97.2 F L Pulse Rate 53 L 62 45 L Respiratory Rate 20 18 Blood Pressure 145/83 H 148/78 H 177/85 H Pulse Oximetry 98 98 100 07/17/18 16:00 07/17/18 20:00 07/17/18 21:00 Temperature 97.6 F 97.4 F L Pulse Rate 50 L 47 L 52 L Respiratory Rate 17 18 Blood Pressure 174/81 H 183/86 H Pulse Oximetry 97 99 07/18/18 00:00 07/18/18 04:00 07/18/18 08:00 Temperature 97.8 F 98.4 F 98.1 F Pulse Rate 52 L 51 L 65 Respiratory Rate 17 18 17 Blood Pressure 157/84 H 160/78 H 187/89 H Pulse Oximetry 98 96 97 Intake & Output 07/17/18 07/18/18 07/18/18 18:59 06:59 18:59 Intake Total 1050 / 1050 Output Total 1450 / 1450 Balance -400 / -400 Weight 83.461 kg 84.7 kg Intake: IV 950 / 950 D5W/1/2NS + KCL 20 mEq Inj 1, 950 / 950 000 ML @ 100 mls/hr IV.CONT . Q10H [facility] Rx#:[id number] Oral 100 / 100 Output: Urine 900 / 900 Gastric Drainage 550 / 550 Right Nare Nasogastric Tube 550 / 550 Other: # Voids 1 Date of Last Bowel Movement 07/16/18 Weight On Admission 83.46 kg Narrative: Alert and awake Abd: mildly distended; non tender NGT to LIWS with thin brown drainage - Urinary Catheter Management Straight Cath placed during this visit: yes, but has since been removed by the nurse Reason for continuing: Acute urinary retention Insertion date: 07/18/18 Insertion time: 20:15 Removal date: 07/18/18 Removal time: 13:00 Indwelling Urethral Catheter Cath placed during this visit: no Reason for continuing: Acute urinary retention Results - Labs 07/20/18 03:47 07/20/18 03:47 Laboratory Results - last 24 hr 07/17/18 07/17/18 07/17/18 12:00 12:00 12:00 WBC 3.5 L RBC 4.68 Hgb 14.4 Hct 43.6 MCV 93.2 MCH 30.8 MCHC 33.1 RDW 13.9 Plt Count 135 L MPV 9.2 Neut % (Auto) 47.5 Lymph % (Auto) 42.2 [place] % (Auto) 7.8 Eos % (Auto) 2.0 Baso % (Auto) 0.5 Neut # (Auto) 1.7 L Lymph # (Auto) 1.5 [place] # (Auto) 0.3 Eos # (Auto) 0.1 Baso # (Auto) 0.0 WBC Differential . Differential Comment Auto diff final PT INR Sodium 140 Potassium 4.2 Chloride 106 Carbon Dioxide 27.4 Anion Gap 7 BUN 12 Creatinine 1.10 Estimated GFR 80 L Random Glucose 107 H Lactic Acid 0.8 Calcium 8.3 L Phosphorus Magnesium Total Bilirubin 0.5 AST 12 L ALT 20 Alkaline Phosphatase 79 Troponin I Total Protein 7.6 Albumin 3.6 Triglycerides Cholesterol LDL Cholesterol, Calc HDL Cholesterol Cholesterol/HDL Ratio Lipase 58 L TSH Free T4 Urine Color Urine Clarity Urine pH Ur Specific [place] Urine Protein Urine Glucose (UA) Urine Ketones Urine Occult Blood Urine Nitrate Urine Bilirubin Urine Urobilinogen Ur Leukocyte Esterase Urine RBC Urine WBC Urine Mucus Micro UA Comment Ur Microscopic Review Urine Culture Comments 07/17/18 07/17/18 07/18/18 12:00 12:15 04:35 WBC 2.4 L RBC 4.45 L Hgb 13.7 Hct 41.3 MCV 92.8 MCH 30.7 MCHC 33.1 RDW 13.9 Plt Count 116 L MPV 9.7 Neut % (Auto) 52.4 Lymph % (Auto) 35.4 [place] % (Auto) 9.2 H Eos % (Auto) 2.6 Baso % (Auto) 0.4 Neut # (Auto) 1.2 L Lymph # (Auto) 0.8 L [place] # (Auto) 0.2 Eos # (Auto) 0.1 Baso # (Auto) 0.0 WBC Differential . Differential Comment Auto diff final PT INR Sodium Potassium Chloride Carbon Dioxide Anion Gap BUN Creatinine Estimated GFR Random Glucose Lactic Acid Calcium Phosphorus Magnesium Total Bilirubin AST ALT Alkaline Phosphatase Troponin I Less than 0.02 L Total Protein Albumin Triglycerides Cholesterol LDL Cholesterol, Calc HDL Cholesterol Cholesterol/HDL Ratio Lipase TSH Free T4 Urine Color Yellow Urine Clarity Hazy H Urine pH 5.0 Ur Specific [place] 1.016 Urine Protein Negative Urine Glucose (UA) Negative Urine Ketones Negative Urine Occult Blood Negative Urine Nitrate Negative Urine Bilirubin Negative Urine Urobilinogen Less than 2 Ur Leukocyte Esterase Negative Urine RBC Less than 1 Urine WBC 1 Urine Mucus Few H Micro UA Comment Culture not ind Ur Microscopic Review Not Reportable Urine Culture Comments Culture not ind 07/18/18 07/18/18 04:35 04:35 WBC RBC Hgb Hct MCV MCH MCHC RDW Plt Count MPV Neut % (Auto) Lymph % (Auto) [place] % (Auto) Eos % (Auto) Baso % (Auto) Neut # (Auto) Lymph # (Auto) [place] # (Auto) Eos # (Auto) Baso # (Auto) WBC Differential Differential Comment PT 10.7 INR 1.1 Sodium 141 Potassium 3.7 Chloride 105 Carbon Dioxide 27.1 Anion Gap 9 BUN 6 L Creatinine 0.96 Estimated GFR Greater than 89 Random Glucose 108 H Lactic Acid Calcium 8.6 Phosphorus 2.4 L Magnesium 1.9 Total Bilirubin 0.6 AST 14 L ALT 19 Alkaline Phosphatase 72 Troponin I Total Protein 7.1 Albumin 3.3 L Triglycerides 76 Cholesterol 132 LDL Cholesterol, Calc 79 HDL Cholesterol 38.0 L Cholesterol/HDL Ratio 3.47 Lipase TSH 2.240 Free T4 1.20 Urine Color Urine Clarity Urine pH Ur Specific [place] Urine Protein Urine Glucose (UA) Urine Ketones Urine Occult Blood Urine Nitrate Urine Bilirubin Urine Urobilinogen Ur Leukocyte Esterase Urine RBC Urine WBC Urine Mucus Micro UA Comment Ur Microscopic Review Urine Culture Comments - Imaging Imaging: ITS Impressions Abdomen/Pelvis CT 07/17/18 11:38 CONCLUSION: 1. Several loops of marginally distended proximal ileum in the left abdomen with mild fecalization and diffuse bowel wall thickening. Relative transition point in the midabdomen and left upper quadrant with decompressed proximal and distal bowel loops. Overall findings are most consistent with a partial small bowel obstruction likely secondary to adhesions. Findings are new since 2016 although the fecalization suggests a somewhat subacute etiology. No evidence for bowel infarction or perforation. 2. 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 3. Stable additional ancillary findings, as above. Abdomen X-Ray 07/17/18 15:41 CONCLUSION: 1. NGT just beyond the GE junction in the stomach. 2. Partially distended air-filled small bowel loops in the upper abdomen consistent with findings on CT exam earlier today. Assessment and Plan - Assessment (1) Small bowel obstruction Code(s): K56.609 - Unspecified intestinal obstruction, unspecified as to partial versus complete obstruction Status: Acute Plan: 72 year old male with SBO -Continue NGT to LIWS -Okay to clamp to ambulate -IVF -KUB in AM -Continue non op treatment - Attending Attestation The exam, history, and the medical decision-making described in the above note were completed with the assistance of the mid-level provider. I reviewed and agree with the findings presented. I attest that I had a [id number] encounter with the patient on the same day, and personally performed and documented my assessment and findings in the medical record. SBO pain better, still no bowel function abdomen soft, no peritonitis or rebound continue non-op management
--- NOTE | 2018-07-18 10:06 | MB ---
cc: Gene Conti MD DATE: 07/18/2018 REASON FOR CONSULTATION: Bradycardia. HISTORY OF PRESENT ILLNESS: The patient is a 72-year-old male with a history of coronary artery disease, colon cancer, hypertension, hyperlipidemia, who presented to the hospital with abdominal pain. Further workup has suggested partial small bowel obstruction. Here in the hospital, he has been noted to be bradycardic. The patient denies dizziness, syncope, near syncope, chest pain, pedal edema, paroxysmal nocturnal dyspnea. At times, he feels mildly dyspneic with moderate exertion. For the most part, he is sedentary. PAST MEDICAL HISTORY: 1. Coronary artery disease, status post bypass surgery 07/13/2003 with a left internal mammary artery to the LAD and 3 separate vein grafts to the diagonal, obtuse marginal, posterior descending artery. His last heart catheterization was 04/04/[address] Jacky Roberts showing all 4 grafts to be patent. 2. Colon cancer, status post resection in 2001. 3. Hypertension. 4. Hyperlipidemia. PAST SURGICAL HISTORY: 1. Cervical spine surgery in 2001. 2. Coronary artery bypass grafting 07/13/2003. 3. Colon resection in 2001 for cancer. CARDIAC MEDICATIONS AT HOME: 1. Metoprolol succinate 50 mg daily. 2. Atorvastatin 40 mg at bedtime. ALLERGIES: NO KNOWN DRUG ALLERGIES. FAMILY HISTORY: Noncontributory. SOCIAL HISTORY: The patient is a former smoker. There is no history of alcohol abuse. REVIEW OF SYSTEMS: As in the history of present illness, otherwise negative or noncontributory. He also denies headache, bright red blood per rectum, melena, fevers. PHYSICAL EXAMINATION: VITAL SIGNS: His blood pressure 160/78 with a pulse of 51, respirations 18. GENERAL: He is a well-developed, well-nourished male in no acute distress. NECK: Jugular venous pressure appears to be normal. Carotid pulses are 2+ bilaterally and without bruits. CHEST: Reveals clear lungs cruz. CARDIAC: He has a bradycardic, regular rhythm without S3, S4, or murmur. ABDOMEN:. Aggressive palpation was not pursued. There is no definite hepatosplenomegaly. EXTREMITIES: Examination reveals no clubbing, cyanosis or edema. DIAGNOSTIC DATA: EKG shows sinus bradycardia, otherwise normal EKG. LABORATORY DATA: Includes WBC of 2.4, hemoglobin of 13.7, platelets 116. Potassium 3.7, BUN 6, creatinine 0.96. Total cholesterol 132, LDL 79, HDL 38, triglycerides 76. IMPRESSION: Bradycardia in this 72-year-old male with a history of coronary artery disease, colon cancer, hypertension, hyperlipidemia, now admitted with partial small bowel obstruction. The patient is predominantly in a sinus bradycardia, which is chronic since about 2012. He appears to be asymptomatic from the bradycardia. He did have an episode of a junctional escape rhythm this morning, although while asleep. He does also have some signs and symptoms of sleep apnea. The patient also has been on beta sandra therapy. Overall, there is no evidence for acute coronary syndrome or congestive heart failure. RECOMMENDATIONS: 1. Continue to monitor off metoprolol. 2. Consider outpatient evaluation for sleep apnea. 3. Unless he develops symptoms clearly correlating with bradycardia, would recommend no pacemaker implant. MD BAYRON Gutiérrez/kumar , 08:08 AM , 08:16 AM [email or web address]
[2018-07-18] MEDS: Morphine Inj 4 MG/ML Vial IV.PUSH PRN ×2 (10:34→15:52)
[2018-07-18] MEDS: oxyCODONE/Acetaminophen 10/325 Tablet PO PRN (12:18)
--- NOTE | 2018-07-18 13:44 | ECG ---
Date Performed: 07/17/2018 Time Performed: 13:28:58 PTAGE: 72 years EKG: SINUS BRADYCARDIA BORDERLINE ECG PREVIOUS TRACING : 07/09/2016 20.33 Since the previous tracing, no significant change noted DOCTOR: Samuel Olivas Interpretating Date/Time 07/18/2018 13:42:33
--- NOTE | 2018-07-18 15:13 | P.PNIM ---
Subjective Interval history: Chief Complaint: NAUSEA/VOMITING/DIARRHEA History of Present Illness: Patient is a 72-year-old -[place] gentleman who presented to the emergency department for evaluation of nausea and vomiting and diarrhea and abdominal pain. Patient reported symptoms have been ongoing for at least the past 3 days but have worsened today. Pain is mostly in the lower abdomen. Patient feels like he has gas and continues to have gas. Patient has not had any real relief. Has not taken anything from this. Has had some multiple bowel movements. Not sure if they are true diarrhea more more she. States that he has not vomited but is felt nauseated and feels like something is pushing up. Had this yesterday but not today. When patient came in here because symptoms have not improved pain is 8 out of 10 he denies any chest pain. Denies any shortness of breath. Denies any fevers or chills or sweats. Past medical history is significant for hyperlipidemia hypertension GERD and BPH as well as history of cervical surgical repair as well as left cataract surgery. Family history is unknown 10 PATIENT NEEDED TO BE STRAIGHT CATHED EARLIER TODAY DW RN AND PT STILL HAS SOME ABDOMINAL PAIN NEEDED PAIN MEDS BLOOD PRESSURE IS BORDERLINE CATAPRES PRN AM LABS Physical Exam Vital signs: Vital Signs 07/17/18 15:33 07/17/18 16:00 07/17/18 20:00 Temperature 97.6 F 97.4 F L Pulse Rate 45 L 50 L 47 L Respiratory Rate 18 17 18 Blood Pressure 177/85 H 174/81 H 183/86 H Pulse Oximetry 100 97 99 07/17/18 21:00 07/18/18 00:00 07/18/18 04:00 Temperature 97.8 F 98.4 F Pulse Rate 52 L 52 L 51 L Respiratory Rate 17 18 Blood Pressure 157/84 H 160/78 H Pulse Oximetry 98 96 07/18/18 08:00 07/18/18 11:06 07/18/18 12:00 Temperature 98.1 F 97.9 F Pulse Rate 65 54 L Respiratory Rate 17 18 Blood Pressure 187/89 H 174/82 H Pulse Oximetry 97 97 95 Intake & Output 07/17/18 07/18/18 07/18/18 18:59 06:59 18:59 Intake Total 1050 / 1050 Output Total 1450 / 1450 400 / 400 Balance -400 / -400 -400 / -400 Weight 83.461 kg 84.7 kg Intake: IV 950 / 950 D5W/1/2NS + KCL 20 mEq Inj 1, 950 / 950 000 ML @ 100 mls/hr IV.CONT . Q10H [facility] Rx#:[id number] Oral 100 / 100 Output: Urine 900 / 900 Gastric Drainage 550 / 550 400 / 400 Right Nare Nasogastric Tube 550 / 550 400 / 400 Other: # Voids 1 Date of Last Bowel Movement 07/16/18 Weight On Admission 83.46 kg Narrative: GENERAL: Awake alert and oriented x3 talkative and cooperative SKIN: Warm and dry. HEAD: Atraumatic. Normocephalic. Has an NG tube in his nares EYES: Pupils equal and round. No scleral icterus. No injection or drainage. EOMI ENT: No nasal bleeding or discharge. Mucous membranes pink and moist. Tongue is midline NECK: Trachea midline. No JVD. Supple CARDIOVASCULAR: Regular rate and rhythm. S1-S2 no S3 or S4 has a midline incision that is well-healed RESPIRATORY: No accessory muscle use. Clear to auscultation. Breath sounds equal bilaterally. GASTROINTESTINAL: Abdomen mildly tender . Hepatic and splenic margins not palpable. LESS Distended somewhat tympanic MUSCULOSKELETAL: Extremities without clubbing, cyanosis, or edema. No obvious deformities. NEUROLOGICAL: Awake and alert. No obvious cranial nerve deficits. Motor grossly within normal limits. Five out of 5 muscle strength in the arms and legs. Normal speech. PSYCHIATRIC: Appropriate mood and affect; insight and judgment normal. - Urinary Catheter Management Straight Cath placed during this visit: yes, but has since been removed by the nurse Reason for continuing: Other continuation reason Insertion date: 07/18/18 Insertion time: 12:50 Removal date: 07/18/18 Removal time: 13:00 Results - Labs CBC & Chem 7: 07/18/18 04:35 07/18/18 04:35 Laboratory Results - last 24 hr 07/18/18 07/18/18 07/18/18 04:35 04:35 04:35 WBC 2.4 L RBC 4.45 L Hgb 13.7 Hct 41.3 MCV 92.8 MCH 30.7 MCHC 33.1 RDW 13.9 Plt Count 116 L MPV 9.7 Neut % (Auto) 52.4 Lymph % (Auto) 35.4 [place] % (Auto) 9.2 H Eos % (Auto) 2.6 Baso % (Auto) 0.4 Neut # (Auto) 1.2 L Lymph # (Auto) 0.8 L [place] # (Auto) 0.2 Eos # (Auto) 0.1 Baso # (Auto) 0.0 WBC Differential . Differential Comment Auto diff final PT 10.7 INR 1.1 Sodium 141 Potassium 3.7 Chloride 105 Carbon Dioxide 27.1 Anion Gap 9 BUN 6 L Creatinine 0.96 Estimated GFR Greater than 89 Random Glucose 108 H Calcium 8.6 Phosphorus 2.4 L Magnesium 1.9 Total Bilirubin 0.6 AST 14 L ALT 19 Alkaline Phosphatase 72 Total Protein 7.1 Albumin 3.3 L Triglycerides 76 Cholesterol 132 LDL Cholesterol, Calc 79 HDL Cholesterol 38.0 L Cholesterol/HDL Ratio 3.47 TSH 2.240 Free T4 1.20 - Imaging Impressions Abdomen/Pelvis CT 07/17/18 11:38 CONCLUSION: 1. Several loops of marginally distended proximal ileum in the left abdomen with mild fecalization and diffuse bowel wall thickening. Relative transition point in the midabdomen and left upper quadrant with decompressed proximal and distal bowel loops. Overall findings are most consistent with a partial small bowel obstruction likely secondary to adhesions. Findings are new since 2016 although the fecalization suggests a somewhat subacute etiology. No evidence for bowel infarction or perforation. 2. 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 3. Stable additional ancillary findings, as above. Abdomen X-Ray 07/17/18 15:41 CONCLUSION: 1. NGT just beyond the GE junction in the stomach. 2. Partially distended air-filled small bowel loops in the upper abdomen consistent with findings on CT exam earlier today. Assessment and Plan - Plan Small bowel obstruction Abdominal pain History of colonic resection -Pain control -NG tube to low intermittent suction -GERD prevention with Protonix Surgery consult Hypertension -Resume home medications BPH resume home medication URINARY RETENTION Hyperlipidemia hold his statin at this time GERD continue on Protonix but may get IV Coronary artery disease history of CABG stable Pain control A.m. labs DVT prophylaxis with heparin 5000 units subcu every 8 hours GI prophylaxis with Protonix IV Code Status: FULL CODE Discussed Condition With: RN AND PT Discharge Planning: Once cleared by surgery and tolerating a diet
[2018-07-18 16:51] LABS: Hemoglobin A1c 5.7 % (4.3-6.0)
[2018-07-18] MEDS: Pantoprazole Inj 40 MG Vial IV.PUSH SCH (17:50)
[2018-07-19] MEDS: Heparin - SQ 10,000 UNITS/ML Vial SQ SCH ×3 (01:00→16:15)
[2018-07-19 05:01] LABS: Baso % (Auto) 0.5 % (0.0-2.0); Eos % (Auto) 0.2 % (0.0-4.0); Hematocrit 43.9 % (39.0-51.0); Hemoglobin 14.4 gm/dL (13.0-17.0); Lymph # (Auto) 0.7 th/mm3 (1.0-4.8); Lymph % (Auto) 18.3 % (9.0-44.0); Mean Corpuscular HGB Conc 32.7 % (32.0-36.0); Mean Corpuscular Hemoglobin 30.1 pg (27.0-34.0); Mean Corpuscular Volume 92.1 fL (80.0-100.0); Mean Platelet Volume 10.3 fL (7.0-11.0); Mono # (Auto) 0.2 th/mm3 (0.0-0.9); Platelet Count 129 th/mm3 (150-450); Red Blood Count 4.76 mil/mm3 (4.50-5.90); Red Cell Distribution Width 13.6 % (11.6-17.2)
[2018-07-19 05:17] LABS: Alanine Aminotransferase 20 U/L (12-78); Albumin 3.4 g/dL (3.4-5.0); Aspartate Aminotransferase 15 U/L (15-37); Blood Urea Nitrogen 3 mg/dL (7-18); Calcium 8.7 mg/dL (8.5-10.1); Carbon Dioxide 27.8 meq/L (21.0-32.0); Glomerular Filtration Rate Greater Than 89 mL/min (>89); Glucose,Random 136 mg/dL (74-106); Magnesium 1.9 mg/dL (1.5-2.5); Phosphorus 2.3 mg/dL (2.5-4.9)
[2018-07-19] MEDS: Morphine Inj 4 MG/ML Vial IV.PUSH PRN (06:07)
[2018-07-19 06:46] LABS: Anion Gap 11 meq/L (5-15); Chloride 103 meq/L (98-107); Potassium 3.8 meq/L (3.5-5.1); Sodium 139 meq/L (136-145)
[2018-07-19 06:49] LABS: Alkaline Phosphatase 76 U/L (45-117); Total Protein 7.4 g/dL (6.4-8.2)
--- NOTE | 2018-07-19 07:46 | P.PNCA ---
Subjective Interval history: No angina, dyspnea. Mild nausea this morning. No dizziness, palpitations, near syncope. Medications and Allergies Active Medications: Active Medications Acetaminophen (Tylenol) 650 mg PO Q4H PRN PRN Reason: Temp > 100.4 Al Hydroxide/Mg Hydroxide (Milk Of Magnesia Liq) 30 ml PO Q12H PRN PRN Reason: Mild Constipation Bisacodyl (Dulcolax Supp) 10 mg RECTAL DAILY PRN PRN Reason: SEVERE CONSITIPATION Clonidine HCl (Catapres) 0.1 mg PO Q6H PRN PRN Reason: HYPERTENSION Heparin Sodium (Porcine) (Heparin Inj) 5,000 units SQ Q8H [facility] Last Admin: 07/19/18 01:00 Dose: 5,000 units Potassium Chloride/Dextrose/Sod Cl (D5w/1/2ns + Kcl 20 Meq Inj) 1,000 mls @ 100 mls/hr IV.CONT .Q10H [facility] Last Admin: 07/18/18 22:34 Dose: 100 mls/hr Lactulose (Lactulose Liq) 30 ml PO DAILY PRN PRN Reason: SEVERE CONSITIPATION Morphine Sulfate (Morphine Inj) 2 mg IV.PUSH Q3H PRN PRN Reason: PAIN 3-5; IF UABLE TO TAKE PO Morphine Sulfate (Morphine Inj) 4 mg IV.PUSH Q3H PRN PRN Reason: PAIN 6-10;IF UNABLE TO TAKE PO Last Admin: 07/19/18 06:07 Dose: 4 mg Morphine Sulfate (Morphine Inj) 4 mg IV.PUSH Q3H PRN PRN Reason: BREAKTHROUGH PAIN Last Admin: 07/17/18 21:48 Dose: 4 mg Morphine Sulfate (Morphine Inj) 4 mg IV.PUSH Q1H PRN PRN Reason: Pain Scale 7-10 (Intractable) Naloxone HCl (Narcan Inj) 0.4 mg IV.PUSH UNSCH PRN PRN Reason: SEE LABEL COMMENTS Ondansetron HCl (Zofran Inj) 4 mg IV.PUSH Q6H PRN PRN Reason: NAUSEA OR VOMITING Last Admin: 07/19/18 05:58 Dose: 4 mg Oxycodone/Acetaminophen (Percocet 10/325 Mg) 1 tab PO Q6H PRN PRN Reason: PAIN SCALE 6 TO 10 Last Admin: 07/18/18 12:18 Dose: 1 tab Oxycodone/Acetaminophen (Percocet 5/325 Mg) 1 tab PO Q6H PRN PRN Reason: PAIN SCALE 3 TO 5 Pantoprazole Sodium (Protonix Inj) 40 mg IV.PUSH Q24H [facility] Last Admin: 07/18/18 17:50 Dose: 40 mg Senna/Docusate Sodium (Beth-Colace) 1 tab PO BID [facility] Last Admin: 07/18/18 20:38 Dose: Not Given Sennosides (Senokot) 17.2 mg PO Q12H PRN PRN Reason: Moderate Constipation Tamsulosin HCl (Flomax) 0.4 mg PO DAILY [facility] Last Admin: 07/18/18 08:18 Dose: 0.4 mg Throat Lozenges (Chloraseptic [place]) 2 spray OROPHARYNG Q2H PRN PRN Reason: SORE THROAT Last Admin: 07/18/18 03:45 Dose: 2 spray Allergies Allergy/AdvReac Type Severity Reaction Status Date / Time No Known Allergies Allergy Verified 07/17/18 11:34 Home Medications Medication Instructions Recorded Confirmed Type atorvastatin 40 mg PO DAILY 07/17/18 07/17/18 History cyanocobalamin (vitamin B-12) 1,000 mcg PO DAILY 07/17/18 07/17/18 History [Vitamin B-12] metoprolol succinate 50 mg PO DAILY 07/17/18 07/17/18 History pantoprazole [Protonix] 40 mg PO DAILY 07/17/18 07/17/18 History tamsulosin 0.4 mg PO DAILY 07/17/18 07/17/18 History Physical Exam Vital signs: Vital Signs 07/18/18 08:00 07/18/18 11:06 07/18/18 12:00 Temperature 98.1 F 97.9 F Pulse Rate 65 54 L Respiratory Rate 17 18 Blood Pressure 187/89 H 174/82 H Pulse Oximetry 97 97 95 07/18/18 16:00 07/18/18 20:00 07/18/18 23:25 Temperature 98.1 F 98.8 F 98.5 F Pulse Rate 60 62 60 Respiratory Rate 16 16 18 Blood Pressure 139/76 167/81 H 166/77 H Pulse Oximetry 94 L 99 98 07/19/18 04:00 07/19/18 06:09 07/19/18 07:34 Temperature 98.8 F Pulse Rate 60 61 Respiratory Rate 18 18 14 Blood Pressure 166/80 H Pulse Oximetry 98 Intake & Output 07/18/18 07/19/18 07/19/18 18:59 06:59 18:59 Intake Total 1000 / 1000 1000 / 1000 Output Total 400 / 400 950 / 950 Balance 600 / 600 50 / 50 Weight 83.6 kg Intake: IV 1000 / 1000 1000 / 1000 D5W/1/2NS + KCL 20 mEq Inj 1, 1000 / 1000 1000 / 1000 000 ML @ 100 mls/hr IV.CONT . Q10H [facility] Rx#:[id number] Oral 0 / 0 Output: Emesis 100 / 100 Urine Amount (Catheter) 650 / 650 Indwelling Urethral Catheter 650 / 650 Gastric Drainage 400 / 400 200 / 200 Right Nare Nasogastric Tube 400 / 400 200 / 200 Other: # Emeses 1 - Constitutional no acute distress - Routine Neck Exam Absent: JVD - Routine Respiratory Exam Present: CTA bilaterally - Routine Cardiovascular Exam Present: S1, S2, murmur, bradycardia. Absent: gallop Comments: II/ systolic murmur lower left sternal border - Routine Abdominal Exam Present: soft. Absent: tenderness, organomegaly - Routine Extremities Exam Absent: cyanosis, clubbing, edema - Urinary Catheter Management Straight Cath placed during this visit: yes, but has since been removed by the nurse Reason for continuing: Acute urinary retention Insertion date: 07/18/18 Insertion time: 20:15 Removal date: 07/18/18 Removal time: 13:00 Indwelling Urethral Catheter Cath placed during this visit: no Results 07/19/18 03:29 07/19/18 03:29 Cardiac Enzymes 07/17/18 07/17/18 07/18/18 Range/Units 12:00 12:00 04:35 AST 12 L 14 L (15-37) U/L Troponin I Less than 0.02 L (0.02-0.05) ng/mL 07/19/18 Range/Units 03:29 AST 15 (15-37) U/L Troponin I (0.02-0.05) ng/mL Coagulation 07/18/18 Range/Units 04:35 PT 10.7 (9.8-11.6) sec Lipids 07/18/18 Range/Units 04:35 Triglycerides 76 (42-150) mg/dL Cholesterol 132 (120-200) mg/dL HDL Cholesterol 38.0 L (40.0-60.0) mg/dL Cholesterol/HDL Ratio 3.47 Ratio CBC 07/17/18 07/18/18 07/19/18 Range/Units 12:00 04:35 03:29 WBC 3.5 L 2.4 L 4.0 D (4.0-11.0) th/mm3 RBC 4.68 4.45 L 4.76 (4.50-5.90) mil/mm3 Hgb 14.4 13.7 14.4 (13.0-17.0) gm/dL Hct 43.6 41.3 43.9 (39.0-51.0) % Plt Count 135 L 116 L 129 L (150-450) th/mm3 Neut # (Auto) 1.7 L 1.2 L 3.0 (1.8-7.7) th/mm3 Lymph # (Auto) 1.5 0.8 L 0.7 L (1.0-4.8) th/mm3 [place] # (Auto) 0.3 0.2 0.2 (0.0-0.9) th/mm3 Eos # (Auto) 0.1 0.1 0.0 (0.0-0.4) th/mm3 Baso # (Auto) 0.0 0.0 0.0 (0.0-0.2) th/mm3 Comprehensive Metabolic Panel 07/17/18 07/18/18 07/19/18 Range/Units 12:00 04:35 03:29 Sodium 140 141 139 (136-145) meq/L Potassium 4.2 3.7 3.8 (3.5-5.1) meq/L Chloride 106 105 103 (98-107) meq/L Carbon Dioxide 27.4 27.1 27.8 (21.0-32.0) meq/L BUN 12 6 L 3 L (7-18) mg/dL Creatinine 1.10 0.96 0.89 (0.60-1.30) mg/dL Calcium 8.3 L 8.6 8.7 (8.5-10.1) mg/dL AST 12 L 14 L 15 (15-37) U/L ALT 20 19 20 (12-78) U/L Alkaline Phosphatase 79 72 76 (45-117) U/L Total Protein 7.6 7.1 7.4 (6.4-8.2) g/dL Albumin 3.6 3.3 L 3.4 (3.4-5.0) g/dL Intake and Output 07/18/18 07/19/18 07/19/18 22:59 06:59 14:59 Intake Total 1050 / 1050 0 / 0 Output Total 950 / 950 Balance 1050 / 1050 -950 / -950 Intake: IV 1050 / 1050 D5W/1/2NS + KCL 20 mEq Inj 1, 1050 / 1050 000 ML @ 100 mls/hr IV.CONT . Q10H [facility] Rx#:[id number] Oral 0 / 0 Output: Emesis 100 / 100 Urine Amount (Catheter) 650 / 650 Indwelling Urethral Catheter 650 / 650 Gastric Drainage 200 / 200 Right Nare Nasogastric Tube 200 / 200 Other: # Emeses 1 Weight 83.6 kg - Imaging and Cardiology Imaging: Impressions Abdomen/Pelvis CT 07/17/18 11:38 CONCLUSION: 1. Several loops of marginally distended proximal ileum in the left abdomen with mild fecalization and diffuse bowel wall thickening. Relative transition point in the midabdomen and left upper quadrant with decompressed proximal and distal bowel loops. Overall findings are most consistent with a partial small bowel obstruction likely secondary to adhesions. Findings are new since 2016 although the fecalization suggests a somewhat subacute etiology. No evidence for bowel infarction or perforation. 2. 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 3. Stable additional ancillary findings, as above. Abdomen X-Ray 07/17/18 15:41 CONCLUSION: 1. NGT just beyond the GE junction in the stomach. 2. Partially distended air-filled small bowel loops in the upper abdomen consistent with findings on CT exam earlier today. Assessment and Plan - Assessment (1) Bradycardia Code(s): R00.1 - Bradycardia, unspecified Status: Acute Plan: Stable overnight off metoprolol. No further pauses or junctional escape rhythm. Recommend continue to monitor. Consider outpatient evaluation for sleep apnea. (2) Coronary artery disease Code(s): I25.10 - Atherosclerotic heart disease of [place] coronary artery without angina pectoris Status: Chronic Plan: History of CABG 2002. Stable. No definite angina symptoms. Patent bypass grafts on cath 2011. Recommend aspirin when better able to take oral meds. (3) Hypertension Code(s): I10 - Essential (primary) hypertension Status: Chronic Plan: Mostly hypertensive. Recommend PRN IV enalapril until better able to take oral meds. Keep off AV sandie suppressing drugs. - Plan Code Status: full code Discussed Condition With: patient (2) Coronary artery disease Qualifiers: Coronary Disease-Associated Artery/Lesion type: [place] artery [place] vs. transplanted heart: [place] heart Associated angina: without angina Qualified Code(s): I25.10 - Atherosclerotic heart disease of [place] coronary artery without angina pectoris (3) Hypertension Qualifiers: Hypertension type: essential hypertension Qualified Code(s): I10 - Essential (primary) hypertension
[2018-07-19] MEDS: KCL 20 mEq/D5W/NaCl 0.45% Inj 1,000 ML IV.CONT SCH ×2 (08:11→17:05)
[2018-07-19] MEDS: Senna/Docusate Sodium 8.6/50 MG Tablet PO SCH ×2 (08:12→20:51)
--- NOTE | 2018-07-19 08:53 | XR ---
EXAM DATE: 07/19/2018 6:00 AM EDT AGE/SEX: 72 years / Male INDICATIONS: Abdomen pain, nausea, constipation. CLINICAL DATA: This is the patient's subsequent encounter. Patient reports that signs and symptoms h ave been present for 3 days and indicates a pain score of 5/10. MEDICAL/SURGICAL HISTORY: Hypertension. . Colon surgery, Triple bypass surgery COMPARISON: [facility] [place], ABDOMEN [place], 07/17/2018. . FINDINGS: There is an NGT in the stomach. There is improved distention of small bowel loops with air and stool seen throughout the colon. No gross free air or pneumatosis. Remainder of the exam is unchanged. CONCLUSION: 1. Stable NGT in the stomach. 2. Improved small bowel distention consistent with resolving partial small bowel obstruction. Electronically signed by: Randell Fraire MD 07/19/2018 8:52 AM EDT
--- NOTE | 2018-07-19 10:43 | P.PNIM ---
Subjective Interval history: Chief Complaint: NAUSEA/VOMITING/DIARRHEA History of Present Illness: Patient is a 72-year-old -[place] gentleman who presented to the emergency department for evaluation of nausea and vomiting and diarrhea and abdominal pain. Patient reported symptoms have been ongoing for at least the past 3 days but have worsened today. Pain is mostly in the lower abdomen. Patient feels like he has gas and continues to have gas. Patient has not had any real relief. Has not taken anything from this. Has had some multiple bowel movements. Not sure if they are true diarrhea more more she. States that he has not vomited but is felt nauseated and feels like something is pushing up. Had this yesterday but not today. When patient came in here because symptoms have not improved pain is 8 out of 10 he denies any chest pain. Denies any shortness of breath. Denies any fevers or chills or sweats. Past medical history is significant for hyperlipidemia hypertension GERD and BPH as well as history of cervical surgical repair as well as left cataract surgery. Family history is unknown 10-15 PATIENT NEEDED TO BE STRAIGHT CATHED EARLIER TODAY DW RN AND PT STILL HAS SOME ABDOMINAL PAIN NEEDED PAIN MEDS BLOOD PRESSURE IS BORDERLINE CATAPRES PRN -16 Patient is still having abdominal pain Still has NG tube in place-will defer to surgery Still has small bowel obstruction per x-ray As needed blood pressure medications Continue physical therapy and occupational therapy Continue on Flomax increase to twice daily AM LABS Physical Exam Vital signs: Vital Signs 07/18/18 11:06 07/18/18 12:00 07/18/18 16:00 Temperature 97.9 F 98.1 F Pulse Rate 54 L 60 Respiratory Rate 18 16 Blood Pressure 174/82 H 139/76 Pulse Oximetry 97 95 94 L 07/18/18 20:00 07/18/18 23:25 07/19/18 04:00 Temperature 98.8 F 98.5 F 98.8 F Pulse Rate 62 60 60 Respiratory Rate 16 18 18 Blood Pressure 167/81 H 166/77 H 166/80 H Pulse Oximetry 99 98 98 07/19/18 06:09 07/19/18 07:34 07/19/18 07:42 Temperature 97.6 F Pulse Rate 61 58 L Respiratory Rate 18 14 17 Blood Pressure 139/73 Pulse Oximetry 96 07/19/18 08:51 Temperature Pulse Rate Respiratory Rate Blood Pressure Pulse Oximetry 94 L Intake & Output 07/18/18 07/19/18 07/19/18 18:59 06:59 18:59 Intake Total 1000 / 1000 1000 / 1000 1000 / 1000 Output Total 400 / 400 950 / 950 Balance 600 / 600 50 / 50 1000 / 1000 Weight 83.6 kg Intake: IV 1000 / 1000 1000 / 1000 1000 / 1000 D5W/1/2NS + KCL 20 mEq Inj 1, 1000 / 1000 1000 / 1000 1000 / 1000 000 ML @ 100 mls/hr IV.CONT . Q10H [facility] Rx#:[id number] Oral 0 / 0 Output: Emesis 100 / 100 Urine Amount (Catheter) 650 / 650 Indwelling Urethral Catheter 650 / 650 Gastric Drainage 400 / 400 200 / 200 Right Nare Nasogastric Tube 400 / 400 200 / 200 Other: Date of Last Bowel Movement 07/16/18 # [place] 1 Narrative: GENERAL: Awake alert and oriented x3 talkative and cooperative SKIN: Warm and dry. HEAD: Atraumatic. Normocephalic. Has an NG tube in his nares EYES: Pupils equal and round. No scleral icterus. No injection or drainage. EOMI ENT: No nasal bleeding or discharge. Mucous membranes pink and moist. Tongue is midline NECK: Trachea midline. No JVD. Supple CARDIOVASCULAR: Regular rate and rhythm. S1-S2 no S3 or S4 has a midline incision that is well-healed RESPIRATORY: No accessory muscle use. Clear to auscultation. Breath sounds equal bilaterally. GASTROINTESTINAL: Abdomen mildly tender . Hepatic and splenic margins not palpable. LESS Distended somewhat tympanic MUSCULOSKELETAL: Extremities without clubbing, cyanosis, or edema. No obvious deformities. NEUROLOGICAL: Awake and alert. No obvious cranial nerve deficits. Motor grossly within normal limits. Five out of 5 muscle strength in the arms and legs. Normal speech. PSYCHIATRIC: Appropriate mood and affect; insight and judgment normal. - Urinary Catheter Management Straight Cath placed during this visit: yes, but has since been removed by the nurse Reason for continuing: Acute urinary retention Insertion date: 07/18/18 Insertion time: 20:15 Removal date: 07/18/18 Removal time: 13:00 Indwelling Urethral Catheter Cath placed during this visit: no Reason for continuing: Acute urinary retention Results - Labs CBC & Chem 7: 07/19/18 03:29 07/19/18 03:29 Laboratory Results - last 24 hr 07/18/18 07/19/18 07/19/18 04:35 03:29 03:29 WBC 4.0 D RBC 4.76 Hgb 14.4 Hct 43.9 MCV 92.1 MCH 30.1 MCHC 32.7 RDW 13.6 Plt Count 129 L MPV 10.3 Neut % (Auto) 75.0 H Lymph % (Auto) 18.3 [place] % (Auto) 6.0 Eos % (Auto) 0.2 Baso % (Auto) 0.5 Neut # (Auto) 3.0 Lymph # (Auto) 0.7 L [place] # (Auto) 0.2 Eos # (Auto) 0.0 Baso # (Auto) 0.0 WBC Differential . Differential Comment Auto diff final Sodium 139 Potassium 3.8 Chloride 103 Carbon Dioxide 27.8 Anion Gap 11 BUN 3 L Creatinine 0.89 Estimated GFR Greater than 89 Random Glucose 136 H Hemoglobin A1c 5.7 Calcium 8.7 Phosphorus 2.3 L Magnesium 1.9 Total Bilirubin 0.7 AST 15 ALT 20 Alkaline Phosphatase 76 Total Protein 7.4 Albumin 3.4 - Imaging Impressions Abdomen X-Ray 07/19/18 06:00 CONCLUSION: 1. Stable NGT in the stomach. 2. Improved small bowel distention consistent with resolving partial small bowel obstruction. Assessment and Plan - Plan Small bowel obstruction Abdominal pain History of colonic resection -Pain control -NG tube to low intermittent suction -GERD prevention with Protonix -Bowel rest Surgery consult Hypertension -Resume home medications -Monitor for signs bradycardia hold meds if becomes bradycardic BPH resume home medication-will increase Flomax to twice daily URINARY RETENTION Hyperlipidemia hold his statin at this time GERD continue on Protonix but may get IV Coronary artery disease history of CABG stable Pain control A.m. labs DVT prophylaxis with heparin 5000 units subcu every 8 hours GI prophylaxis with Protonix IV Code Status: Full code Discussed Condition With: RN and patient and family Discharge Planning: Once cleared by surgery and tolerating a diet
--- NOTE | 2018-07-19 11:46 | P.PNGS ---
Subjective Interval history: Resting in bed Tired this morning NGT out overnight and was doing well until this morning when he developed nausea Physical Exam Vital signs: Vital Signs 07/18/18 12:00 07/18/18 16:00 07/18/18 20:00 Temperature 97.9 F 98.1 F 98.8 F Pulse Rate 54 L 60 62 Respiratory Rate 18 16 16 Blood Pressure 174/82 H 139/76 167/81 H Pulse Oximetry 95 94 L 99 07/18/18 23:25 07/19/18 04:00 07/19/18 06:09 Temperature 98.5 F 98.8 F Pulse Rate 60 60 Respiratory Rate 18 18 18 Blood Pressure 166/77 H 166/80 H Pulse Oximetry 98 98 07/19/18 07:34 07/19/18 07:42 07/19/18 08:51 Temperature 97.6 F Pulse Rate 61 58 L Respiratory Rate 14 17 Blood Pressure 139/73 Pulse Oximetry 96 94 L Intake & Output 07/18/18 07/19/18 07/19/18 18:59 06:59 18:59 Intake Total 1000 / 1000 1000 / 1000 1000 / 1000 Output Total 400 / 400 950 / 950 Balance 600 / 600 50 / 50 1000 / 1000 Weight 83.6 kg Intake: IV 1000 / 1000 1000 / 1000 1000 / 1000 D5W/1/2NS + KCL 20 mEq Inj 1, 1000 / 1000 1000 / 1000 1000 / 1000 000 ML @ 100 mls/hr IV.CONT . Q10H [facility] Rx#:[id number] Oral 0 / 0 Output: Emesis 100 / 100 Urine Amount (Catheter) 650 / 650 Indwelling Urethral Catheter 650 / 650 Gastric Drainage 400 / 400 200 / 200 Right Nare Nasogastric Tube 400 / 400 200 / 200 Other: Date of Last Bowel Movement 07/16/18 # Emes[place] 1 Narrative: Alert and awake Abd: continues to be distended; non tender - Urinary Catheter Management Straight Cath placed during this visit: yes, but has since been removed by the nurse Reason for continuing: Acute urinary retention Insertion date: 07/18/18 Insertion time: 20:15 Removal date: 07/18/18 Removal time: 13:00 Indwelling Urethral Catheter Cath placed during this visit: no Reason for continuing: Acute urinary retention Results - Labs 07/20/18 03:47 07/20/18 03:47 Laboratory Results - last 24 hr 07/18/18 07/19/18 07/19/18 04:35 03:29 03:29 WBC 4.0 D RBC 4.76 Hgb 14.4 Hct 43.9 MCV 92.1 MCH 30.1 MCHC 32.7 RDW 13.6 Plt Count 129 L MPV 10.3 Neut % (Auto) 75.0 H Lymph % (Auto) 18.3 [place] % (Auto) 6.0 Eos % (Auto) 0.2 Baso % (Auto) 0.5 Neut # (Auto) 3.0 Lymph # (Auto) 0.7 L [place] # (Auto) 0.2 Eos # (Auto) 0.0 Baso # (Auto) 0.0 WBC Differential . Differential Comment Auto diff final Sodium 139 Potassium 3.8 Chloride 103 Carbon Dioxide 27.8 Anion Gap 11 BUN 3 L Creatinine 0.89 Estimated GFR Greater than 89 Random Glucose 136 H Hemoglobin A1c 5.7 Calcium 8.7 Phosphorus 2.3 L Magnesium 1.9 Total Bilirubin 0.7 AST 15 ALT 20 Alkaline Phosphatase 76 Total Protein 7.4 Albumin 3.4 - Imaging Imaging: ITS Impressions Abdomen/Pelvis CT 07/17/18 11:38 CONCLUSION: 1. Several loops of marginally distended proximal ileum in the left abdomen with mild fecalization and diffuse bowel wall thickening. Relative transition point in the midabdomen and left upper quadrant with decompressed proximal and distal bowel loops. Overall findings are most consistent with a partial small bowel obstruction likely secondary to adhesions. Findings are new since 2016 although the fecalization suggests a somewhat subacute etiology. No evidence for bowel infarction or perforation. 2. 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 3. Stable additional ancillary findings, as above. Abdomen X-Ray 07/19/18 06:00 CONCLUSION: 1. Stable NGT in the stomach. 2. Improved small bowel distention consistent with resolving partial small bowel obstruction. Assessment and Plan - Assessment (1) Small bowel obstruction Code(s): K56.609 - Unspecified intestinal obstruction, unspecified as to partial versus complete obstruction Status: Acute Plan: 72 year old male with SBO -Will do a trial of clamping NGT with ice and water -If any nausea/vomiting occur---connect back to LIWS -OOB and mobilize -IVF -Discussed with family and RN Pennie - Attending Attestation The exam, history, and the medical decision-making described in the above note were completed with the assistance of the mid-level provider. I reviewed and agree with the findings presented. I attest that I had a [id number] encounter with the patient on the same day, and personally performed and documented my assessment and findings in the medical record. SBO, 2/2 adhesions pain better, no significant bowel function yet continue to follow, may need surgery later this week if remains obstructed
[2018-07-19] MEDS: Pantoprazole Inj 40 MG Vial IV.PUSH SCH (17:06)
[2018-07-19] MEDS: oxyCODONE/Acetaminophen 10/325 Tablet PO PRN (20:50)
[2018-07-20] MEDS: Morphine Sulfate Inj 2 MG/ML Vial IV.PUSH PRN ×3 (00:47→11:11)
[2018-07-20] MEDS: Heparin - SQ 10,000 UNITS/ML Vial SQ SCH ×2 (00:48→11:10)
[2018-07-20] MEDS: KCL 20 mEq/D5W/NaCl 0.45% Inj 1,000 ML IV.CONT SCH ×2 (05:03→17:05)
[2018-07-20 05:33] LABS: Baso % (Auto) 0.4 % (0.0-2.0); Hematocrit 42.5 % (39.0-51.0); Hemoglobin 14.4 gm/dL (13.0-17.0); Lymph # (Auto) 1.1 th/mm3 (1.0-4.8); Lymph % (Auto) 20.2 % (9.0-44.0); Mean Corpuscular HGB Conc 33.9 % (32.0-36.0); Mean Corpuscular Hemoglobin 30.9 pg (27.0-34.0); Mean Corpuscular Volume 91.3 fL (80.0-100.0); Mean Platelet Volume 9.8 fL (7.0-11.0); Mono # (Auto) 0.3 th/mm3 (0.0-0.9); Mono % (Auto) 5.8 % (0.0-8.0); Neut # (Auto) 3.9 th/mm3 (1.8-7.7); Neut % (Auto) 73.6 % (16.0-70.0); Platelet Count 138 th/mm3 (150-450); Red Blood Count 4.66 mil/mm3 (4.50-5.90); Red Cell Distribution Width 13.4 % (11.6-17.2); White Blood Count 5.4 th/mm3 (4.0-11.0)
[2018-07-20 06:02] LABS: Alanine Aminotransferase 22 U/L (12-78); Albumin 3.4 g/dL (3.4-5.0); Anion Gap 8 meq/L (5-15); Aspartate Aminotransferase 13 U/L (15-37); Blood Urea Nitrogen 3 mg/dL (7-18); Calcium 8.8 mg/dL (8.5-10.1); Carbon Dioxide 26.6 meq/L (21.0-32.0); Chloride 98 meq/L (98-107); Glomerular Filtration Rate Greater Than 89 mL/min (>89); Glucose,Random 134 mg/dL (74-106); Magnesium 1.8 mg/dL (1.5-2.5); Phosphorus 2.4 mg/dL (2.5-4.9); Potassium 3.6 meq/L (3.5-5.1); Sodium 133 meq/L (136-145)
[2018-07-20 06:04] LABS: Alkaline Phosphatase 89 U/L (45-117); Total Protein 7.8 g/dL (6.4-8.2)
[2018-07-20] MEDS: oxyCODONE/Acetaminophen 10/325 Tablet PO PRN ×2 (06:15→19:30)
--- NOTE | 2018-07-20 07:35 | P.PNCA ---
Subjective Interval history: Complains of right shoulder, right neck pain, left sided headache. No angina, dyspnea, dizziness, palpitations. Medications and Allergies Active Medications: Active Medications Acetaminophen (Tylenol) 650 mg PO Q4H PRN PRN Reason: Temp > 100.4 Al Hydroxide/Mg Hydroxide (Milk Of Magnesia Liq) 30 ml PO Q12H PRN PRN Reason: Mild Constipation Bisacodyl (Dulcolax Supp) 10 mg RECTAL DAILY PRN PRN Reason: SEVERE CONSITIPATION Clonidine HCl (Catapres) 0.1 mg PO Q6H PRN PRN Reason: HYPERTENSION Last Admin: 07/20/18 04:58 Dose: 0.1 mg Enalaprilat (Vasotec Inj) 1.25 mg IV.PUSH Q6H PRN PRN Reason: HYPERTENSION Last Admin: 07/20/18 06:15 Dose: 1.25 mg Heparin Sodium (Porcine) (Heparin Inj) 5,000 units SQ Q8H [facility] Last Admin: 07/20/18 00:48 Dose: 5,000 units Potassium Chloride/Dextrose/Sod Cl (D5w/1/2ns + Kcl 20 Meq Inj) 1,000 mls @ 100 mls/hr IV.CONT .Q10H [facility] Last Admin: 07/20/18 05:03 Dose: 100 mls/hr Lactulose (Lactulose Liq) 30 ml PO DAILY PRN PRN Reason: SEVERE CONSITIPATION Morphine Sulfate (Morphine Inj) 2 mg IV.PUSH Q3H PRN PRN Reason: PAIN 3-5; IF UABLE TO TAKE PO Last Admin: 07/20/18 04:57 Dose: 2 mg Morphine Sulfate (Morphine Inj) 4 mg IV.PUSH Q3H PRN PRN Reason: PAIN 6-10;IF UNABLE TO TAKE PO Last Admin: 07/19/18 06:07 Dose: 4 mg Morphine Sulfate (Morphine Inj) 4 mg IV.PUSH Q3H PRN PRN Reason: BREAKTHROUGH PAIN Last Admin: 07/17/18 21:48 Dose: 4 mg Morphine Sulfate (Morphine Inj) 4 mg IV.PUSH Q1H PRN PRN Reason: Pain Scale 7-10 (Intractable) Naloxone HCl (Narcan Inj) 0.4 mg IV.PUSH UNSCH PRN PRN Reason: SEE LABEL COMMENTS Ondansetron HCl (Zofran Inj) 4 mg IV.PUSH Q6H PRN PRN Reason: NAUSEA OR VOMITING Last Admin: 07/20/18 00:48 Dose: 4 mg Oxycodone/Acetaminophen (Percocet 10/325 Mg) 1 tab PO Q6H PRN PRN Reason: PAIN SCALE 6 TO 10 Last Admin: 07/20/18 06:15 Dose: 1 tab Oxycodone/Acetaminophen (Percocet 5/325 Mg) 1 tab PO Q6H PRN PRN Reason: PAIN SCALE 3 TO 5 Pantoprazole Sodium (Protonix Inj) 40 mg IV.PUSH Q24H [facility] Last Admin: 07/19/18 17:06 Dose: 40 mg Senna/Docusate Sodium (Beth-Colace) 1 tab PO BID [facility] Last Admin: 07/19/18 20:51 Dose: 1 tab Sennosides (Senokot) 17.2 mg PO Q12H PRN PRN Reason: Moderate Constipation Tamsulosin HCl (Flomax) 0.4 mg PO BID [facility] Last Admin: 07/19/18 20:51 Dose: 0.4 mg Throat Lozenges (Chloraseptic [place]) 2 spray OROPHARYNG Q2H PRN PRN Reason: SORE THROAT Last Admin: 07/18/18 03:45 Dose: 2 spray Allergies Allergy/AdvReac Type Severity Reaction Status Date / Time No Known Allergies Allergy Verified 07/17/18 11:34 Home Medications Medication Instructions Recorded Confirmed Type atorvastatin 40 mg PO DAILY 07/17/18 07/17/18 History cyanocobalamin (vitamin B-12) 1,000 mcg PO DAILY 07/17/18 07/17/18 History [Vitamin B-12] metoprolol succinate 50 mg PO DAILY 07/17/18 07/17/18 History pantoprazole [Protonix] 40 mg PO DAILY 07/17/18 07/17/18 History tamsulosin 0.4 mg PO DAILY 07/17/18 07/17/18 History Physical Exam Vital signs: Vital Signs 07/19/18 07:34 07/19/18 07:42 07/19/18 08:51 Temperature 97.6 F Pulse Rate 61 58 L Respiratory Rate 14 17 Blood Pressure 139/73 Pulse Oximetry 96 94 L 07/19/18 12:00 07/19/18 16:00 07/19/18 20:00 Temperature 97.6 F 97.6 F 98.4 F Pulse Rate 48 L 58 L 62 Respiratory Rate 18 20 16 Blood Pressure 170/80 H 187/92 H 177/86 H Pulse Oximetry 98 99 99 07/19/18 21:20 07/20/18 00:00 07/20/18 00:49 Temperature 98.4 F Pulse Rate 59 L Respiratory Rate 18 15 18 Blood Pressure 183/82 H Pulse Oximetry 96 07/20/18 04:00 07/20/18 04:59 07/20/18 06:08 Temperature 98.1 F Pulse Rate 60 55 L Respiratory Rate 16 18 Blood Pressure 189/91 H 212/97 H Pulse Oximetry 95 Intake & Output 07/19/18 07/20/18 07/20/18 18:59 06:59 18:59 Intake Total 1999 / 1999 1000 / 1000 Output Total 800 / 800 1400 / 1400 Balance 1200 / 1200 -400 / -400 Weight 83.6 kg Intake: IV 1999 1000 / 1000 D5W/1/2NS + KCL 20 mEq Inj 1, 1999 1000 / 1000 000 ML @ 100 mls/hr IV.CONT . Q10H [facility] Rx#:[id number] Oral 0 / 0 Output: Urine 600 / 600 Urine Amount (Catheter) 1100 / 1100 Indwelling Urethral Catheter 1100 / 1100 Gastric Drainage 200 / 200 300 / 300 Right Nare Nasogastric Tube 200 / 200 300 / 300 Other: Date of Last Bowel Movement 07/16/18 07/16/18 # Bowel Movements 0 - Constitutional no acute distress - Routine Neck Exam Absent: JVD - Routine Respiratory Exam Present: CTA bilaterally - Routine Cardiovascular Exam Present: RRR, S2. Absent: murmur, gallop - Routine Abdominal Exam Present: soft. Absent: normoactive bowel sounds, tenderness - Routine Extremities Exam Absent: cyanosis, clubbing, edema - Urinary Catheter Management Straight Cath placed during this visit: yes, but has since been removed by the nurse Reason for continuing: Acute urinary retention Insertion date: 07/18/18 Insertion time: 20:15 Removal date: 07/18/18 Removal time: 13:00 Indwelling Urethral Catheter Cath placed during this visit: no Reason for continuing: Acute urinary retention Results 07/20/18 03:47 07/20/18 03:47 Cardiac Enzymes 07/18/18 07/19/18 07/20/18 Range/Units 04:35 03:29 03:47 AST 14 L 15 13 L (15-37) U/L Lipids 07/18/18 Range/Units 04:35 Triglycerides 76 (42-150) mg/dL Cholesterol 132 (120-200) mg/dL HDL Cholesterol 38.0 L (40.0-60.0) mg/dL Cholesterol/HDL Ratio 3.47 Ratio CBC 07/19/18 07/20/18 Range/Units 03:29 03:47 WBC 4.0 D 5.4 (4.0-11.0) th/mm3 RBC 4.76 4.66 (4.50-5.90) mil/mm3 Hgb 14.4 14.4 (13.0-17.0) gm/dL Hct 43.9 42.5 (39.0-51.0) % Plt Count 129 L 138 L (150-450) th/mm3 Neut # (Auto) 3.0 3.9 (1.8-7.7) th/mm3 Lymph # (Auto) 0.7 L 1.1 (1.0-4.8) th/mm3 [place] # (Auto) 0.2 0.3 (0.0-0.9) th/mm3 Eos # (Auto) 0.0 0.0 (0.0-0.4) th/mm3 Baso # (Auto) 0.0 0.0 (0.0-0.2) th/mm3 Comprehensive Metabolic Panel 07/18/18 07/19/18 07/20/18 Range/Units 04:35 03:29 03:47 Sodium 141 139 133 L (136-145) meq/L Potassium 3.7 3.8 3.6 (3.5-5.1) meq/L Chloride 105 103 98 (98-107) meq/L Carbon Dioxide 27.1 27.8 26.6 (21.0-32.0) meq/L BUN 6 L 3 L 3 L (7-18) mg/dL Creatinine 0.96 0.89 0.80 (0.60-1.30) mg/dL Calcium 8.6 8.7 8.8 (8.5-10.1) mg/dL AST 14 L 15 13 L (15-37) U/L ALT 19 20 22 (12-78) U/L Alkaline Phosphatase 72 76 89 (45-117) U/L Total Protein 7.1 7.4 7.8 (6.4-8.2) g/dL Albumin 3.3 L 3.4 3.4 (3.4-5.0) g/dL Intake and Output 07/19/18 07/20/18 07/20/18 22:59 06:59 14:59 Intake Total 1000 / 1000 1000 / 1000 Output Total 600 / 600 1400 / 1400 Balance 400 / 400 -400 / -400 Intake: IV 1000 / 1000 1000 / 1000 D5W/1/2NS + KCL 20 mEq Inj 1, 1000 / 1000 1000 / 1000 000 ML @ 100 mls/hr IV.CONT . Q10H [facility] Rx#:[id number] Oral 0 / 0 Output: Urine 600 / 600 Urine Amount (Catheter) 1100 / 1100 Indwelling Urethral Catheter 1100 / 1100 Gastric Drainage 300 / 300 Right Nare Nasogastric Tube 300 / 300 Other: Date of Last Bowel Movement 07/16/18 # Bowel Movements 0 Weight 83.6 kg - Imaging and Cardiology Imaging: Impressions Abdomen X-Ray 07/19/18 06:00 CONCLUSION: 1. Stable NGT in the stomach. 2. Improved small bowel distention consistent with resolving partial small bowel obstruction. Assessment and Plan - Assessment (1) Bradycardia Code(s): R00.1 - Bradycardia, unspecified Status: Acute Plan: Stable since admission off metoprolol. No further pauses or junctional escape rhythm. Recommend continue to monitor. Consider outpatient evaluation for sleep apnea. Will f/u as needed. (2) Coronary artery disease Code(s): I25.10 - Atherosclerotic heart disease of [place] coronary artery without angina pectoris Status: Chronic Plan: History of CABG 2002. Stable. No definite angina symptoms. Patent bypass grafts on cath 2011. Recommend aspirin when better able to take oral meds. (3) Hypertension Code(s): I10 - Essential (primary) hypertension Status: Chronic Plan: Hypertensive though in pain. Recommend continue PRN IV enalapril and clonidine until better able to take oral meds. Keep off AV sandie suppressing drugs. (4) Wide-complex tachycardia Code(s): I47.2 - Ventricular tachycardia Status: Acute Plan: 4 beat run wide complex tachycardia last night, asymptomatic, possibly aberrantly conducted SVT. Unable to use beta sandra. Check echo. Continue to monitor. - Plan Code Status: full code Discussed Condition With: patient (2) Coronary artery disease Qualifiers: Coronary Disease-Associated Artery/Lesion type: [place] artery [place] vs. transplanted heart: [place] heart Associated angina: without angina Qualified Code(s): I25.10 - Atherosclerotic heart disease of [place] coronary artery without angina pectoris (3) Hypertension Qualifiers: Hypertension type: essential hypertension Qualified Code(s): I10 - Essential (primary) hypertension
--- NOTE | 2018-07-20 10:04 | P.PN ---
Subjective Interval history: Follow-up SBO. Discussed with nursing. Nauseous this morning. Gastric output 100 mL overnight. Complains of headache BP elevated. No BM or gas for 4 days. Denies abdominal distention per Physical Exam Vital signs: Vital Signs 07/19/18 12:00 07/19/18 16:00 07/19/18 20:00 Temperature 97.6 F 97.6 F 98.4 F Pulse Rate 48 L 58 L 62 Respiratory Rate 18 20 16 Blood Pressure 170/80 H 187/92 H 177/86 H Pulse Oximetry 98 99 99 07/19/18 21:20 07/20/18 00:00 07/20/18 00:49 Temperature 98.4 F Pulse Rate 59 L Respiratory Rate 18 15 18 Blood Pressure 183/82 H Pulse Oximetry 96 07/20/18 04:00 07/20/18 04:59 07/20/18 06:08 Temperature 98.1 F Pulse Rate 60 55 L Respiratory Rate 16 18 Blood Pressure 189/91 H 212/97 H Pulse Oximetry 95 07/20/18 08:00 07/20/18 09:56 Temperature 97.9 F Pulse Rate 57 L Respiratory Rate 17 Blood Pressure 199/89 H Pulse Oximetry 92 L 100 Intake & Output 07/19/18 07/20/18 07/20/18 18:59 06:59 18:59 Intake Total 1999 1000 / 1000 Output Total 800 / 800 1400 / 1400 Balance 1200 / 1200 -400 / -400 Weight 83.6 kg Intake: IV 1999 1000 / 1000 D5W/1/2NS + KCL 20 mEq Inj , 1999 1000 / 1000 000 ML @ 100 mls/hr IV.CONT . Q10H [facility] Rx#:[id number] Oral 0 / 0 Output: Urine 600 / 600 Urine Amount (Catheter) 1100 / 1100 Indwelling Urethral Catheter 1100 / 1100 Gastric Drainage 200 / 200 300 / 300 Right Nare Nasogastric Tube 200 / 200 300 / 300 Other: Date of Last Bowel Movement 07/16/18 07/16/18 # Bowel Movements 0 Narrative: GENERAL: Awake alert and oriented SKIN: Warm and dry. CARDIOVASCULAR: Regular rate and rhythm. S1-S2 no S3 or S4 has a midline incision that is well-healed RESPIRATORY: No accessory muscle use. Clear to auscultation. Breath sounds equal bilaterally. GASTROINTESTINAL: Abdomen mildly tender epigastric. Less distended somewhat tympanic MUSCULOSKELETAL: Extremities without clubbing, cyanosis, or edema. No obvious deformities. NEUROLOGICAL: Awake and alert. No obvious cranial nerve deficits. Motor grossly within normal limits. Five out of 5 muscle strength in the arms and legs. Normal speech. - Urinary Catheter Management Straight Cath placed during this visit: yes, but has since been removed by the nurse Reason for continuing: Acute urinary retention Insertion date: 07/18/18 Insertion time: 20:15 Removal date: 07/18/18 Removal time: 13:00 Indwelling Urethral Catheter Cath placed during this visit: no Reason for continuing: Acute urinary retention Results - Labs CBC & Chem 7: 07/20/18 03:47 07/20/18 03:47 Laboratory Results - last 24 hr 07/20/18 07/20/18 03:47 03:47 WBC 5.4 RBC 4.66 Hgb 14.4 Hct 42.5 MCV 91.3 MCH 30.9 MCHC 33.9 RDW 13.4 Plt Count 138 L MPV 9.8 Neut % (Auto) 73.6 H Lymph % (Auto) 20.2 [place] % (Auto) 5.8 Eos % (Auto) 0.0 Baso % (Auto) 0.4 Neut # (Auto) 3.9 Lymph # (Auto) 1.1 [place] # (Auto) 0.3 Eos # (Auto) 0.0 Baso # (Auto) 0.0 WBC Differential . Differential Comment Auto diff final Sodium 133 L Potassium 3.6 Chloride 98 Carbon Dioxide 26.6 Anion Gap 8 BUN 3 L Creatinine 0.80 Estimated GFR Greater than 89 Random Glucose 134 H Calcium 8.8 Phosphorus 2.4 L Magnesium 1.8 Total Bilirubin 0.9 AST 13 L ALT 22 Alkaline Phosphatase 89 Total Protein 7.8 Albumin 3.4 - Imaging ITS Impressions Abdomen/Pelvis CT 07/17/18 11:38 CONCLUSION: 1. Several loops of marginally distended proximal ileum in the left abdomen with mild fecalization and diffuse bowel wall thickening. Relative transition point in the midabdomen and left upper quadrant with decompressed proximal and distal bowel loops. Overall findings are most consistent with a partial small bowel obstruction likely secondary to adhesions. Findings are new since 2016 although the fecalization suggests a somewhat subacute etiology. No evidence for bowel infarction or perforation. 2. 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 3. Stable additional ancillary findings, as above. Abdomen X-Ray 07/19/18 06:00 CONCLUSION: 1. Stable NGT in the stomach. 2. Improved small bowel distention consistent with resolving partial small bowel obstruction. Assessment and Plan - Plan Small bowel obstruction. Patient not improving Abdominal pain History of colonic resection -Pain control -NG tube to low intermittent suction -GI prop with Protonix -Bowel rest Surgery consult. May need surgical intervention Hypertension, uncontrolled secondary to pain -Flomax increased to twice a day. Start Nitropaste -Monitor for signs bradycardia hold meds if becomes bradycardic BPH Urinary retention. Urinalysis unremarkable -resume home medication-will increase Flomax to twice daily Hyperlipidemia hold his statin at this time GERD continue on Protonix but may get IV Coronary artery disease history of CABG stable Sinus bradycardia improved off beta-sandra. WCT. Continue to monitor on telemetry. Follow-up echocardiogram DVT prophylaxis with heparin 5000 units subcu every 8 hours (on hold may need surgical intervention) GI prophylaxis with Protonix IV Discharge Planning: When cleared by GS
[2018-07-20] MEDS: Senna/Docusate Sodium 8.6/50 MG Tablet PO SCH ×2 (11:11→21:29)
--- NOTE | 2018-07-20 13:33 | P.DCO ---
- Diagnosis (1) Small bowel obstruction Status: Acute - Physical Therapy Order: Evaluate and treat, Improve ambulation, Strength and gait training - Case Management Consult Yes - Certification I have seen patient Tim Ramirez on 07/20/18. My clinical findings support the need for the requested home health care services because: Deconditioned with increased weakness I certify that my clinical findings support that this patient is homebound because: Post-op weakness
[2018-07-20] MEDS ORDERED: Potassium Phosphate Inj 15 MMOL in Sodium Chlor 0.9% Inj 150 ML IV.SIG ONE (14:00)
[2018-07-20] MEDS ORDERED: Diatrizoate Meglum/Diatrizoate Sod Liq 120 ML Bottle (for RAD diag) NG/OG ONE (14:28)
--- NOTE | 2018-07-20 15:42 | P.PNGS ---
Subjective Interval history: Resting in bed Not talking much again today Still feeling bad today Physical Exam Vital signs: Vital Signs 07/19/18 16:00 07/19/18 20:00 07/19/18 21:20 Temperature 97.6 F 98.4 F Pulse Rate 58 L 62 Respiratory Rate 20 16 18 Blood Pressure 187/92 H 177/86 H Pulse Oximetry 99 99 07/20/18 00:00 07/20/18 00:49 07/20/18 04:00 Temperature 98.4 F 98.1 F Pulse Rate 59 L 60 Respiratory Rate 15 18 16 Blood Pressure 183/82 H 189/91 H Pulse Oximetry 96 95 07/20/18 04:59 07/20/18 06:08 07/20/18 08:00 Temperature 97.9 F Pulse Rate 55 L 57 L Respiratory Rate 18 17 Blood Pressure 212/97 H 199/89 H Pulse Oximetry 92 L 07/20/18 09:56 07/20/18 12:00 Temperature 97.5 F L Pulse Rate 61 Respiratory Rate 18 Blood Pressure 214/103 H Pulse Oximetry 100 98 Intake & Output 07/19/18 07/20/18 07/20/18 18:59 06:59 18:59 Intake Total 1999 / 1999 1000 / 1000 Output Total 800 / 800 1400 / 1400 Balance 1200 / 1200 -400 / -400 Weight 83.6 kg Intake: IV 1999 1000 / 1000 D5W/1/2NS + KCL 20 mEq Inj 1, 1999 1000 / 1000 000 ML @ 100 mls/hr IV.CONT . Q10H [facility] Rx#:[id number] Oral 0 / 0 Output: Urine 600 / 600 Urine Amount (Catheter) 1100 / 1100 Indwelling Urethral Catheter 1100 / 1100 Gastric Drainage 200 / 200 300 / 300 Right Nare Nasogastric Tube 200 / 200 300 / 300 Other: Date of Last Bowel Movement 07/16/18 07/16/18 07/16/18 # Bowel Movements 0 Narrative: Alert and awake Abd: mildly distended although softer today on exam - Urinary Catheter Management Straight Cath placed during this visit: yes, but has since been removed by the nurse Reason for continuing: Acute urinary retention Insertion date: 07/18/18 Insertion time: 20:15 Removal date: 07/18/18 Removal time: 13:00 Indwelling Urethral Catheter Cath placed during this visit: no Reason for continuing: Acute urinary retention Results - Labs 07/20/18 03:47 07/20/18 03:47 Laboratory Results - last 24 hr 07/20/18 07/20/18 03:47 03:47 WBC 5.4 RBC 4.66 Hgb 14.4 Hct 42.5 MCV 91.3 MCH 30.9 MCHC 33.9 RDW 13.4 Plt Count 138 L MPV 9.8 Neut % (Auto) 73.6 H Lymph % (Auto) 20.2 [place] % (Auto) 5.8 Eos % (Auto) 0.0 Baso % (Auto) 0.4 Neut # (Auto) 3.9 Lymph # (Auto) 1.1 [place] # (Auto) 0.3 Eos # (Auto) 0.0 Baso # (Auto) 0.0 WBC Differential . Differential Comment Auto diff final Sodium 133 L Potassium 3.6 Chloride 98 Carbon Dioxide 26.6 Anion Gap 8 BUN 3 L Creatinine 0.80 Estimated GFR Greater than 89 Random Glucose 134 H Calcium 8.8 Phosphorus 2.4 L Magnesium 1.8 Total Bilirubin 0.9 AST 13 L ALT 22 Alkaline Phosphatase 89 Total Protein 7.8 Albumin 3.4 - Imaging Imaging: ITS Impressions Abdomen/Pelvis CT 07/17/18 11:38 CONCLUSION: 1. Several loops of marginally distended proximal ileum in the left abdomen with mild fecalization and diffuse bowel wall thickening. Relative transition point in the midabdomen and left upper quadrant with decompressed proximal and distal bowel loops. Overall findings are most consistent with a partial small bowel obstruction likely secondary to adhesions. Findings are new since 2016 although the fecalization suggests a somewhat subacute etiology. No evidence for bowel infarction or perforation. 2. 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 3. Stable additional ancillary findings, as above. Abdomen X-Ray 07/19/18 06:00 CONCLUSION: 1. Stable NGT in the stomach. 2. Improved small bowel distention consistent with resolving partial small bowel obstruction. Assessment and Plan - Assessment (1) Small bowel obstruction Code(s): K56.609 - Unspecified intestinal obstruction, unspecified as to partial versus complete obstruction Status: Acute Plan: 72 year old male with SBO -SBFT -If no improvement may need to discuss possible surgical intervention -Discussed with at bedside and ANA Colindres - Attending Attestation The exam, history, and the medical decision-making described in the above note were completed with the assistance of the mid-level provider. I reviewed and agree with the findings presented. I attest that I had a [id number] encounter with the patient on the same day, and personally performed and documented my assessment and findings in the medical record. adhesive SBO, slightly better pain better, no NV abdominal exam still some pain check SBFT may need surgery for non-resolution, d/w patient
--- NOTE | 2018-07-20 16:48 | ECHRPT ---
Indication: CARDIOMYOPATHY CONCLUSIONS Normal left ventricular size. The left ventricular systolic function is normal with an estimated ejection fraction of 65%. [id number] mitral valve regurgitation. Aortic valve sclerosis is present. There is trace tricuspid valve regurgitation. BP: / HR: Rhythm: Sinus MEASUREMENTS (Male / Female) Normal Values Technical Quality:Fair 2D ECHO LV Diastolic Diameter PLAX 4.5 cm 4.2 - 5.9 / 3.9 - 5.3 cm LV Systolic Diameter PLAX 2.8 cm IVS Diastolic Thickness 0.9 cm 0.6 - 1.0 / 0.6 - 0.9 cm LVPW Diastolic Thickness 0.9 cm 0.6 - 1.0 / 0.6 - 0.9 cm LV Relative Wall Thickness 0.4 RV Internal Dim ED PLAX 2.8 cm LVOT Diameter 1.7 cm Aortic Root Diameter 2.9 cm LA Systolic Diameter LX 3.5 cm 3.0 - 4.0 / 2.7 - 3.8 cm M-MODE AV Cusp Separation MM 1.4 cm DOPPLER AV Peak Velocity 124.0 cm/s AV Peak Gradient 6.2 mmHg AV Mean Gradient 3.0 mmHg AV Velocity Time Integral 29.7 cm LVOT Peak Velocity 113.0 cm/s LVOT Peak Gradient 5.1 mmHg LVOT Velocity Time Integral 22.2 cm AV Area Cont Eq vti 1.7 cm AV Area Cont Eq pk 2.1 cm Mitral E Point Velocity 120.0 cm/s Mitral A Point Velocity 89.3 cm/s Mitral E to A Ratio 1.3 LV E' Lateral Velocity 18.0 cm/s Mitral E to LV E' Lateral Ratio 6.7 LV E' Septal Velocity 5.1 cm/s Mitral E to LV E' Septal Ratio 23.7 TR Peak Velocity 233.0 cm/s TR Peak Gradient 21.7 mmHg Right Atrial Pressure 10.0 mmHg Pulmonary Artery Systolic Pressu 31.7 mmHg Right Ventricular Systolic Press 31.7 mmHg PV Peak Velocity 69.9 cm/s PV Peak Gradient 2.0 mmHg FINDINGS LEFT VENTRICLE Normal left ventricular size. The left ventricular systolic function is grossly normal on limited imaging. The left ventricular systolic function is normal with an estimated ejection fraction of 65%. RIGHT VENTRICLE Normal right ventricular size and systolic function. LEFT ATRIUM The left atrial size is normal. RIGHT ATRIUM The right atrial size is normal. ATRIAL SEPTUM No atrial level shunt is demonstrated by color flow Doppler interrogation. AORTA The aortic root and proximal ascending aorta are not well visualized. MITRAL VALVE [id number] mitral valve regurgitation. AORTIC VALVE Aortic valve sclerosis is present. TRICUSPID VALVE There is trace tricuspid valve regurgitation. PULMONARY VALVE No pulmonary valve regurgitation or stenosis. VESSELS The inferior vena cava is normal in size. PERICARDIUM No pericardial effusion. Marek Rousseau MD, FACC (Electronically Signed) Final Date:20 July 2018 16:48
[2018-07-20] MEDS: Morphine Inj 4 MG/ML Vial IV.PUSH PRN ×2 (16:57→21:28)
[2018-07-20] MEDS: Pantoprazole Inj 40 MG Vial IV.PUSH SCH (17:06)
--- NOTE | 2018-07-20 22:06 | FL ---
EXAM DATE: 07/20/2018 12:00 AM EDT AGE/SEX: 72 years / Male INDICATIONS: Evaluate for small bowel obstruction. CLINICAL DATA: This is the patient's initial encounter. Patient reports that signs and symptoms have been present for 1 day and indicates a pain score of 0/10. MEDICAL/SURGICAL HISTORY: . Hypertension. . Colon surgery, Triple bypass surgery COMPARISON: . FLUORO TIME: 0 IMAGE COUNT: 9 CONTRAST: FINDINGS: NG tip is in the stomach. There is slow progression of contrast into proximal and distal small bowel. By 2 hours contrast is present in the mid to distal small bowel. There is some questionable contrast in the colon at 4 hours. By 8 hours contrast does reach the splenic flexure. CONCLUSION: There is no current small bowel obstruction. There is delayed passage of contrast through small bowel . Electronically signed by: Karl Ayers MD 07/20/2018 10:04 PM EDT
[2018-07-21] MEDS: KCL 20 mEq/D5W/NaCl 0.45% Inj 1,000 ML IV.CONT SCH ×2 (00:16→05:53)
[2018-07-21] MEDS: Morphine Inj 4 MG/ML Vial IV.PUSH PRN ×4 (02:38→13:40)
[2018-07-21] MEDS ORDERED: Sodium Chloride 0.9% 2 ML Flush PRN IV.FLUSH (03:47)
[2018-07-21 05:18] LABS: Anion Gap 7 meq/L (5-15); Blood Urea Nitrogen 5 mg/dL (7-18); Carbon Dioxide 28.5 meq/L (21.0-32.0); Chloride 95 meq/L (98-107); Glomerular Filtration Rate Greater Than 89 mL/min (>89); Glucose,Random 138 mg/dL (74-106); Magnesium 1.8 mg/dL (1.5-2.5); Potassium 3.8 meq/L (3.5-5.1); Sodium 130 meq/L (136-145)
[2018-07-21] MEDS: Sodium Chloride 0.9% 2 ML Flush BID IV.FLUSH SCH ×3 (07:36→20:00)
--- NOTE | 2018-07-21 08:05 | P.PN ---
Subjective Interval history: Follow-up SBO. Still nauseous but no vomiting. No BM or gas. Gastric drainage 125 mL past 6 hours. SBFT with no obstruction. BP still elevated patient complains of usual right-sided headache and neck pain from arthritis. Physical Exam Vital signs: Vital Signs 07/20/18 09:56 07/20/18 12:00 07/20/18 15:46 Temperature 97.5 F L 97.8 F Pulse Rate 61 59 L Respiratory Rate 18 18 Blood Pressure 214/103 H 198/92 H Pulse Oximetry 100 98 99 07/20/18 20:00 07/20/18 20:45 07/21/18 00:00 Temperature 98.1 F 98.0 F Pulse Rate 60 59 L Respiratory Rate 16 16 Blood Pressure 193/92 H 148/79 H 181/88 H Pulse Oximetry 97 98 07/21/18 04:00 07/21/18 05:16 07/21/18 07:43 Temperature 97.8 F Pulse Rate 60 Respiratory Rate 15 19 Blood Pressure 197/95 H 182/90 H Pulse Oximetry 97 Intake & Output 07/20/18 07/21/18 07/21/18 18:59 06:59 18:59 Intake Total 1000 / 1000 1155 / 1155 Output Total 2150 / 2150 925 / 925 Balance -1150 / -1150 230 / 230 Weight 83.6 kg Intake: IV 1000 / 1000 1155 / 1155 D5W/1/2NS + KCL 20 mEq Inj 1, 1000 / 1000 1000 / 1000 000 ML @ 100 mls/hr IV.CONT . Q10H [facility] Rx#:[id number] Potassium Phosphate Inj 15 MMOL 150 / 150 In NS Inj 150 ML @ 38.75 mls/ hr IV.SIG ONCE ONE Rx#:[id number] Output: Urine 950 / 950 Urine Amount (Catheter) 1100 / 1100 800 / 800 Indwelling Urethral Catheter 1100 / 1100 800 / 800 Gastric Drainage 100 / 100 125 / 125 Right Nare Nasogastric Tube 100 / 100 125 / 125 Other: Date of Last Bowel Movement 07/16/18 07/16/18 07/16/18 Narrative: GENERAL: Awake alert and oriented SKIN: Warm and dry. CARDIOVASCULAR: Regular rate and rhythm. S1-S2 no S3 or S4 has a midline incision that is well-healed RESPIRATORY: No accessory muscle use. Clear to auscultation. Breath sounds equal bilaterally. GASTROINTESTINAL: Abdomen mildly tender epigastric. Less distended MUSCULOSKELETAL: Extremities without clubbing, cyanosis, or edema. No obvious deformities. NEUROLOGICAL: Awake and alert. No obvious cranial nerve deficits. Motor grossly within normal limits. Five out of 5 muscle strength in the arms and legs. Normal speech but very soft. Nonfocal - Urinary Catheter Management Straight Cath placed during this visit: yes, but has since been removed by the nurse Reason for continuing: Acute urinary retention Insertion date: 07/18/18 Insertion time: 20:15 Removal date: 07/18/18 Removal time: 13:00 Indwelling Urethral Catheter Cath placed during this visit: no Reason for continuing: Acute urinary retention Results - Labs CBC & Chem 7: 07/20/18 03:47 07/21/18 03:55 Laboratory Results - last 24 hr 07/21/18 03:55 Sodium 130 L Potassium 3.8 Chloride 95 L Carbon Dioxide 28.5 Anion Gap 7 BUN 5 L Creatinine 0.76 Estimated GFR Greater than 89 Random Glucose 138 H Calcium 9.0 Magnesium 1.8 - Imaging Impressions Small Bowel X-Ray 07/20/18 00:00 CONCLUSION: There is no current small bowel obstruction. There is delayed passage of contrast through small bowel. Assessment and Plan - Assessment (1) Small bowel obstruction Code(s): K56.609 - Unspecified intestinal obstruction, unspecified as to partial versus complete obstruction Status: Acute - Plan Small bowel obstruction. SBFT no obstruction but still symptomatic with nausea and no BM and gas. Abdominal pain History of colonic resection -Pain control -NG tube to low intermittent suction -GI prop with Protonix -Bowel rest Surgery consult. May need surgical intervention Hypertension, uncontrolled secondary to pain -Continue Flomax twice a day if tolerated. Increase Nitropaste, may need clonidine patch -Monitor for signs bradycardia hold meds if becomes bradycardic Headache, acute on chronic. Contributed by hypertension. He is nonfocal. Obtain head CT. BPH Urinary retention. Urinalysis unremarkable -increase Flomax to twice daily Hyperlipidemia hold his statin at this time GERD continue on Protonix but may get IV Coronary artery disease history of CABG stable Sinus bradycardia improved off beta-sandra. WCT. Unable to start beta-sandra secondary to bradycardia. Continue to monitor on telemetry. Follow-up echocardiogram EF 65% Hyponatremia. Change fluid to NS. Monitor DVT prophylaxis with heparin 5000 units subcu every 8 hours (on hold may need surgical intervention) GI prophylaxis with Protonix IV Discharge Planning: When cleared by GS and clinically improved
[2018-07-21] MEDS: Senna/Docusate Sodium 8.6/50 MG Tablet PO SCH ×2 (10:10→20:00)
--- NOTE | 2018-07-21 14:16 | P.DIET ---
Nutritional Evaluation Screening comments: NPO x 3 Days Alert. Pt admitted with Small Bowel Obstruction. Consult RD if needed.
--- NOTE | 2018-07-21 14:39 | CT ---
EXAM DATE: 07/21/2018 11:43 AM EDT AGE/SEX: 72 years / Male INDICATIONS: Headache CLINICAL DATA: This is the patient's initial encounter. Patient reports that signs and symptoms have been present for 1 day and indicates a pain score of 10/10. MEDICAL/SURGICAL HISTORY: Hypertension. Gastroesophageal reflux disease. CABG. RADIATION DOSE: 56.35 CTDI (mGy) COMPARISON: [facility], MR BRAIN W AND W/O CONTRAST, 09/07/2016. . TECHNIQUE: CT of the head without contrast. Using automated exposure control and adjustment of the mA and/or kV according to patient size, radiation dose was kept as low as reasonably achievable to ob tain optimal diagnostic quality images. DICOM format image data is available electronically for revi ew and comparison. FINDINGS: Cerebrum: There is an intraparenchymal hematoma centered in the inferior left basal ganglia extending to the insula. This measures approximately 2.8 x 1.8 cm. There is mild associated surrounding edema and mild associated mass effect. There is also trace amount of blood products in the posterior horn o f the right lateral ventricle. Ventricles are stable in size without evidence for midline shift. Lelia ining may-white matter differentiation is maintained. Basilar cisterns are intact. Posterior Fossa: The cerebellum and brainstem are intact. The 4th ventricle is midline. The cerebe llopontine angle is unremarkable. Extracranial: The visualized portion of the orbits is intact. Skull: The calvaria is intact. No evidence of skull fracture. CONCLUSION: 1. 2.8 cm intraparenchymal hematoma centered in the inferior left basal ganglia extending to the ins tahir. Associated trace amount of intraventricular blood products in the posterior horn of the right la teral ventricle. Mild mass effect but no significant midline shift or transtentorial herniation at th is time. . Electronically signed by: Randell Fraire MD 07/21/2018 2:38 PM EDT
--- NOTE | 2018-07-21 15:29 | P.PNGS ---
Subjective Interval history: Resting in bed C/o nausea Physical Exam Vital signs: Vital Signs 07/20/18 15:46 07/20/18 20:00 07/20/18 20:45 Temperature 97.8 F 98.1 F Pulse Rate 59 L 60 Respiratory Rate 18 16 Blood Pressure 198/92 H 193/92 H 148/79 H Pulse Oximetry 99 97 07/21/18 00:00 07/21/18 04:00 07/21/18 05:16 Temperature 98.0 F 97.8 F Pulse Rate 59 L 60 Respiratory Rate 16 15 Blood Pressure 181/88 H 197/95 H 182/90 H Pulse Oximetry 98 97 07/21/18 07:43 07/21/18 08:00 07/21/18 12:00 Temperature 98.2 F 97.8 F Pulse Rate 61 62 Respiratory Rate 19 24 20 Blood Pressure 194/99 H 189/96 H Pulse Oximetry 99 95 07/21/18 15:00 Temperature 98.2 F Pulse Rate 65 Respiratory Rate 19 Blood Pressure 213/108 H Pulse Oximetry 100 Intake & Output 07/20/18 07/21/18 07/21/18 18:59 06:59 18:59 Intake Total 1000 / 1000 1155 / 1155 420 / 420 Output Total 2150 / 2150 925 / 925 Balance -1150 / -1150 230 / 230 420 / 420 Weight 83.6 kg Intake: IV 1000 / 1000 1155 / 1155 420 / 420 D5W/1/2NS + KCL 20 mEq Inj 1, 1000 / 1000 1000 / 1000 420 / 420 000 ML @ 100 mls/hr IV.CONT . Q10H [facility] Rx#:[id number] Potassium Phosphate Inj 15 MMOL 150 / 150 In NS Inj 150 ML @ 38.75 mls/ hr IV.SIG ONCE ONE Rx#:[id number] Output: Urine 950 / 950 Urine Amount (Catheter) 1100 / 1100 800 / 800 Indwelling Urethral Catheter 1100 / 1100 800 / 800 Gastric Drainage 100 / 100 125 / 125 Right Nare Nasogastric Tube 100 / 100 125 / 125 Other: Date of Last Bowel Movement 07/16/18 07/16/18 07/16/18 Narrative: Alert and awake Abd: soft; distended; NGT to LIWS - Urinary Catheter Management Straight Cath placed during this visit: yes, but has since been removed by the nurse Reason for continuing: Acute urinary retention Insertion date: 07/18/18 Insertion time: 20:15 Removal date: 07/18/18 Removal time: 13:00 Indwelling Urethral Catheter Cath placed during this visit: no Reason for continuing: Acute urinary retention Results - Labs 07/22/18 04:36 07/22/18 04:36 Laboratory Results - last 24 hr 07/21/18 07/21/18 03:55 14:59 Sodium 130 L Potassium 3.8 Chloride 95 L Carbon Dioxide 28.5 Anion Gap 7 BUN 5 L Creatinine 0.76 Estimated GFR Greater than 89 POC Glucose 121 H Random Glucose 138 H Calcium 9.0 Magnesium 1.8 - Imaging Imaging: ITS Impressions Abdomen/Pelvis CT 07/17/18 11:38 CONCLUSION: 1. Several loops of marginally distended proximal ileum in the left abdomen with mild fecalization and diffuse bowel wall thickening. Relative transition point in the midabdomen and left upper quadrant with decompressed proximal and distal bowel loops. Overall findings are most consistent with a partial small bowel obstruction likely secondary to adhesions. Findings are new since 2016 although the fecalization suggests a somewhat subacute etiology. No evidence for bowel infarction or perforation. 2. 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 3. Stable additional ancillary findings, as above. Abdomen X-Ray 07/19/18 06:00 CONCLUSION: 1. Stable NGT in the stomach. 2. Improved small bowel distention consistent with resolving partial small bowel obstruction. Small Bowel X-Ray 07/20/18 00:00 CONCLUSION: There is no current small bowel obstruction. There is delayed passage of contrast through small bowel. Head CT 07/21/18 10:33 CONCLUSION: 1. 2.8 cm intraparenchymal hematoma centered in the inferior left basal ganglia extending to the insula. Associated trace amount of intraventricular blood products in the posterior horn of the right lateral ventricle. Mild mass effect but no significant midline shift or transtentorial herniation at this time. . Assessment and Plan - Assessment (1) Small bowel obstruction Code(s): K56.609 - Unspecified intestinal obstruction, unspecified as to partial versus complete obstruction Status: Acute Plan: 72 year old male with SBO -SBFT shows no definitive obstruction but clinically patient not progressive -Was planning on taking patient to OR for dx lap; possible ex lap but patient went down for Head CT due to headache --- shows 2.8 cm intraparenchymal hematoma in the inferior left basal ganglia -Will hold off on any abdominal surgery ---I notified OR -Continue NGT to LIWS -Discussed with Dr. Carlin - Attending Attestation The exam, history, and the medical decision-making described in the above note were completed with the assistance of the mid-level provider. I reviewed and agree with the findings presented. I attest that I had a [id number] encounter with the patient on the same day, and personally performed and documented my assessment and findings in the medical record. SBO, discussed with patient this AM about surgical options, recommended OR if SBFT shows complete obstruction abdomen soft, painful over mid lower abdomen, no peritonitis or rebound patient developed JIMENEZ and found to have ICH recommend holding off on surgery until stable from neuro standpoint
[2018-07-21] MEDS ORDERED: hydrALAZINE HCl Inj 20 MG/ML Vial ONE (15:43)
[2018-07-21] MEDS: niCARdipine Inj 25 MG in Sodium Chlor 0.9% Inj 240 ML IV.CONT PRN ×5 (15:49→23:01)
--- NOTE | 2018-07-21 16:13 | P.CONCC ---
History of Present Illness Service: Critical care medicine Consult date: 07/21/18 Requesting Physician: Yamil Carlin Reason for Consult: Hypertensive emergency, ICH Primary Care Provider: Layla Chirinos MD Chief Complaint: NAUSEA/VOMITING/DIARRHEA History of Present Illness: 72-year-old male with a medical history significant for colon cancer, hypertension, CAD, hyperlipidemia who was admitted on 07/[address] abdomen pelvis revealed partial SBO. He had an NG tube placed for decompression and was evaluated by general surgery. He was also seen by cardiology and underwent a 2D echo which showed normal LV function. Patient has been complaining of a headache for a few weeks off and on. His blood pressure shot up over the last [address] done this morning revealed left basal ganglia bleed with small amount of blood in the lateral ventricle. Patient was transferred to the ICU, neurosurgery consulted, critical care was consulted by Dr. Carlin for hypertensive emergency and ICH. I evaluated the patient following his arrival in the ICU. At that time he was resting in bed, not in any acute distress. He was complaining of a headache. He denies any weakness in his upper extremities. On testing he was noted to have weakness in the left lower extremity. He had been scheduled for laparoscopy later today which has been postponed at this time. PAST MEDICAL HISTORY: 1. Coronary artery disease, status post bypass surgery 07/13/2003 with a left internal mammary artery to the LAD and 3 separate vein grafts to the diagonal, obtuse marginal, posterior descending artery. His last heart catheterization was 04/04/[address] Jacky Roberts showing all 4 grafts to be patent. 2. Colon cancer, status post resection in 2001. 3. Hypertension. 4. Hyperlipidemia. PAST SURGICAL HISTORY: 1. Cervical spine surgery in 2001. 2. Coronary artery bypass grafting 07/13/2003. 3. Colon resection in 2001 for cancer. Review of Systems All other systems reviewed negative except as stated in HPI PMFSH - History History Provided By: Patient - Medical History Medical History: Medical History (Last Reviewed 07/20/18 @ 07:43 by Merlin Galloway) BPH (benign prostatic hyperplasia) GERD (gastroesophageal reflux disease) High cholesterol Hypertension - Surgical History Surgical History: Surgical History (Last Reviewed 07/19/18 @ 07:32 by Lina Tian) H/O cervical spine surgery History of colon surgery History of left cataract surgery S/P triple vessel bypass - Family History Family History: Family History (Last Reviewed 07/20/18 @ 07:43 by Merlin Galloway) Other Family history unknown - Tobacco History Second Hand Smoke Exposure: No Smoking Status: Never smoker Tobacco Type: Cigarettes - Alcohol History How Often Do You Have a Drink Containing Alcohol: Never - Substance Use History Substance History: No History of Abuse - Travel History History of Recent Travel: No Recent Travel in the [place] Within the Last 8 Weeks: No Recent Travel Out of the Country Within the Last 8 Weeks: No - Immunization History Tetanus Immunization: <5 Years Hx Influenza Vaccine This Season: Yes Medications and Allergies Active Medications: Active Medications Acetaminophen (Tylenol) 650 mg PO Q4H PRN PRN Reason: Temp > 100.4 Al Hydroxide/Mg Hydroxide (Milk Of Magnesia Liq) 30 ml PO Q12H PRN PRN Reason: Mild Constipation Bisacodyl (Dulcolax Supp) 10 mg RECTAL DAILY PRN PRN Reason: SEVERE CONSITIPATION Enalaprilat (Vasotec Inj) 1.25 mg IV.PUSH Q6H PRN PRN Reason: HYPERTENSION Last Admin: 07/21/18 07:31 Dose: 1.25 mg Potassium Chloride/Sodium Chloride (Ns + Kcl 20 Meq Inj) 1,000 mls @ 80 mls/hr IV.CONT .[id number] [facility] Last Admin: 07/21/18 10:16 Dose: 80 mls/hr Nicardipine HCl 25 mg/ Sodium (Chloride) 250 mls @ 50 mls/hr IV.CONT TITRATE PRN; Protocol PRN Reason: Per Protocol Lactulose (Lactulose Liq) 30 ml PO DAILY PRN PRN Reason: SEVERE CONSITIPATION Morphine Sulfate (Morphine Inj) 2 mg IV.PUSH Q3H PRN PRN Reason: PAIN 3-5; IF UABLE TO TAKE PO Last Admin: 07/20/18 11:11 Dose: 2 mg Morphine Sulfate (Morphine Inj) 4 mg IV.PUSH Q3H PRN PRN Reason: PAIN 6-10;IF UNABLE TO TAKE PO Last Admin: 07/21/18 13:40 Dose: 4 mg Morphine Sulfate (Morphine Inj) 4 mg IV.PUSH Q3H PRN PRN Reason: BREAKTHROUGH PAIN Last Admin: 07/17/18 21:48 Dose: 4 mg Morphine Sulfate (Morphine Inj) 4 mg IV.PUSH Q1H PRN PRN Reason: Pain Scale 7-10 (Intractable) Naloxone HCl (Narcan Inj) 0.4 mg IV.PUSH UNSCH PRN PRN Reason: SEE LABEL COMMENTS Nitroglycerin (Nitro-Bid 2% Oint) 1.5 inch TOPICAL Q6HR [facility] Last Admin: 07/21/18 11:42 Dose: 1.5 inch Ondansetron HCl (Zofran Inj) 4 mg IV.PUSH Q6H PRN PRN Reason: NAUSEA OR VOMITING Last Admin: 07/21/18 13:41 Dose: 4 mg Oxycodone/Acetaminophen (Percocet 10/325 Mg) 1 tab PO Q6H PRN PRN Reason: PAIN SCALE 6 TO 10 Last Admin: 07/20/18 19:30 Dose: 1 tab Oxycodone/Acetaminophen (Percocet 5/325 Mg) 1 tab PO Q6H PRN PRN Reason: PAIN SCALE 3 TO 5 Pantoprazole Sodium (Protonix Inj) 40 mg IV.PUSH Q24H [facility] Last Admin: 07/20/18 17:06 Dose: 40 mg Senna/Docusate Sodium (Beth-Colace) 1 tab PO BID [facility] Last Admin: 07/21/18 10:10 Dose: Not Given Sennosides (Senokot) 17.2 mg PO Q12H PRN PRN Reason: Moderate Constipation Sodium Chloride (Ns Flush) 2 ml IV.FLUSH BID [facility] Last Admin: 07/21/18 10:10 Dose: Not Given Sodium Chloride (Ns Flush) 2 ml IV.FLUSH PRN PRN PRN Reason: FLUSH AFTER USING IV ACCESS Tamsulosin HCl (Flomax) 0.4 mg PO BID [facility] Last Admin: 07/21/18 10:10 Dose: Not Given Throat Lozenges (Chloraseptic [place]) 2 spray OROPHARYNG Q2H PRN PRN Reason: SORE THROAT Last Admin: 07/18/18 03:45 Dose: 2 spray Allergies Allergy/AdvReac Type Severity Reaction Status Date / Time No Known Allergies Allergy Verified 07/17/18 11:34 Home Medications Medication Instructions Recorded Confirmed Type atorvastatin 40 mg PO DAILY 07/17/18 07/17/18 History cyanocobalamin (vitamin B-12) 1,000 mcg PO DAILY 07/17/18 07/17/18 History [Vitamin B-12] metoprolol succinate 50 mg PO DAILY 07/17/18 07/17/18 History pantoprazole [Protonix] 40 mg PO DAILY 07/17/18 07/17/18 History tamsulosin 0.4 mg PO DAILY 07/17/18 07/17/18 History Physical Exam Vital signs: Vital Signs 07/20/18 20:00 07/20/18 20:45 07/21/18 00:00 Temperature 98.1 F 98.0 F Pulse Rate 60 59 L Respiratory Rate 16 16 Blood Pressure 193/92 H 148/79 H 181/88 H Pulse Oximetry 97 98 07/21/18 04:00 07/21/18 05:16 07/21/18 07:43 Temperature 97.8 F Pulse Rate 60 Respiratory Rate 15 19 Blood Pressure 197/95 H 182/90 H Pulse Oximetry 97 07/21/18 08:00 07/21/18 12:00 07/21/18 15:00 Temperature 98.2 F 97.8 F 98.2 F Pulse Rate 61 62 65 Respiratory Rate 24 20 19 Blood Pressure 194/99 H 189/96 H 213/108 H Pulse Oximetry 99 95 100 Intake & Output 07/20/18 07/21/18 07/21/18 18:59 06:59 18:59 Intake Total 1000 / 1000 1155 / 1155 420 / 420 Output Total 2150 / 2150 925 / 925 Balance -1150 / -1150 230 / 230 420 / 420 Weight 83.6 kg Intake: IV 1000 / 1000 1155 / 1155 420 / 420 D5W/1/2NS + KCL 20 mEq Inj 1, 1000 / 1000 1000 / 1000 420 / 420 000 ML @ 100 mls/hr IV.CONT . Q10H [facility] Rx#:[id number] Potassium Phosphate Inj 15 MMOL 150 / 150 In NS Inj 150 ML @ 38.75 mls/ hr IV.SIG ONCE ONE Rx#:[id number] Output: Urine 950 / 950 Urine Amount (Catheter) 1100 / 1100 800 / 800 Indwelling Urethral Catheter 1100 / 1100 800 / 800 Gastric Drainage 100 / 100 125 / 125 Right Nare Nasogastric Tube 100 / 100 125 / 125 Other: Date of Last Bowel Movement 07/16/18 07/16/18 07/16/18 Narrative: HEENT/Neuro: No pallor or icterus, tongue moist, KIP, Awake alert oriented 3 , moving all 4 extremities. Left lower extremity weakness noted with grade 3 power. NG tube in place to low intermittent wall suction Neck: No JVD Chest/pulmonary: CTA bilaterally Cardiovascular: S1-S2 regular no gallop or murmur GI/abdomen: Soft, nontender, bowel sounds sluggish Extremities: Warm bilaterally, no edema - Urinary Catheter Management Straight Cath placed during this visit: yes, but has since been removed by the nurse Reason for continuing: Acute urinary retention Insertion date: 07/18/18 Insertion time: 20:15 Removal date: 07/18/18 Removal time: 13:00 Indwelling Urethral Catheter Cath placed during this visit: no Reason for continuing: Acute urinary retention Assessment and Plan - Assessment and Plan Plan: 72-year-old male with: ICH secondary to hypertension Hypertensive emergency SBO CAD Hyperlipidemia Plan: Neuro: Neuro checks per protocol. Awaiting CTA brain and repeat head CT in 6 hours. Neurosurgery consulted.. Antihypertensives including Cardene and hydralazine as needed to keep SBP below 140-150 mmHg. Cardiovascular: IV hydration. Started Cardene GTT as well as hydralazine as needed. Will switch Lopressor to IV. Check twelve-lead EKG. 2D echo with normal LV function Pulmonary: Supplemental O2 as needed, bronchodilators as needed. GI/liver: N.p.o., NG tube to low intermittent wall suction. General surgery following. Laparoscopy postponed at this time due to ICH. Renal/: IV hydration, strict intake output, monitor and replete electrolytes, follow BUN/creatinine ID: No indication for antibiotics at this time. Endocrine: Watch for hyperglycemia, SSI for glycemic control if needed. Prophylaxis: PPI/SCDs. No subcu heparin or Lovenox in view of ICH Condition critical Time spent on critical care excluding procedures 45 minutes.
[2018-07-21] MEDS ORDERED: Metoprolol Inj 5 MG/5 ML Vial IV.PUSH SCH (17:00)
[2018-07-21] MEDS: Pantoprazole Inj 40 MG Vial IV.PUSH SCH (18:18)
--- NOTE | 2018-07-21 18:48 | CT ---
EXAM DATE: 07/21/2018 4:38 PM EDT AGE/SEX: 72 years / Male INDICATIONS: Aneurysm CLINICAL DATA: This is the patient's initial encounter. Patient reports that signs and symptoms have been present for 1 day and indicates a pain score of 3/10. MEDICAL/SURGICAL HISTORY: Hypertension. CABG. RADIATION DOSE: 10.67 CTDI (mGy) ; Combined studies COMPARISON: [facility] [place], CT HEAD W/O CONTRAST, 07/21/2018.. . TECHNIQUE: Volumetric scanning was performed using a multi-row detector CT scanner during bolus infu jihan of 75 ml Omnipaque 350 (iohexol) nonionic water-soluble contrast as a cumulative dose for multi ple exams. The data was post processed with a variety of visualization algorithms including full vo lume maximum intensity projection, multi-planar sliding thin slab reformation, curved planar reformat ion, and surface rendering techniques. Using automated exposure control and adjustment of the mA and /or kV according to patient size, radiation dose was kept as low as reasonably achievable to obtain o ptimal diagnostic quality images. DICOM format image data is available electronically for review and comparison. FINDINGS: See the CT of the brain and CTA of the neck reported separately. There is excellent visualization of the major intracranial arteries out to the second-order branch ve ssels. There is no evidence for aneurysm, vessel truncation or stenosis, and no evidence for vascula r malformation. CONCLUSION: 1. Negative CTA Head. Electronically signed by: Patel Gaxiola MD 07/21/2018 6:47 PM EDT
--- NOTE | 2018-07-21 19:30 | P.CONNS ---
History of Present Illness Primary Care Provider: Layla Chirinos MD Chief Complaint: NAUSEA/VOMITING/DIARRHEA History of Present Illness: 72yoM admitted to medicine for GI workup with known HTN, elevated BP last two days. Had a severe headache today and a head CT was obtained showing right basal ganglia hemorrhage ~10:30AM. CTA taken this afternoon shows stable hemorrhage, and no aneurysmal source. Patient has remained neurologically intact throughout though somewhat sleepier and by report weaker in the left arm. [facility] - History History Provided By: Patient - Medical History Medical History: Medical History (Last Reviewed 07/20/18 @ 07:43 by Merlin Galloway) BPH (benign prostatic hyperplasia) GERD (gastroesophageal reflux disease) High cholesterol Hypertension - Surgical History Surgical History: Surgical History (Last Reviewed 07/19/18 @ 07:32 by Lina Tian) H/O cervical spine surgery History of colon surgery History of left cataract surgery S/P triple vessel bypass - Family History Family History: Family History (Last Reviewed 07/20/18 @ 07:43 by Merlin Galloway) Other Family history unknown - Tobacco History Second Hand Smoke Exposure: No Smoking Status: Never smoker Tobacco Type: Cigarettes - Alcohol History How Often Do You Have a Drink Containing Alcohol: Never - Substance Use History Substance History: No History of Abuse - Travel History History of Recent Travel: No Recent Travel in the [place] Within the Last 8 Weeks: No Recent Travel Out of the Country Within the Last 8 Weeks: No - Immunization History Tetanus Immunization: <5 Years Hx Influenza Vaccine This Season: Yes Medications and Allergies Active Medications: Active Medications Acetaminophen (Tylenol) 650 mg PO Q4H PRN PRN Reason: Temp > 100.4 Al Hydroxide/Mg Hydroxide (Milk Of Arnie Liq) 30 ml PO Q12H PRN PRN Reason: Mild Constipation Bisacodyl (Dulcolax Supp) 10 mg RECTAL DAILY PRN PRN Reason: SEVERE CONSITIPATION Enalaprilat (Vasotec Inj) 1.25 mg IV.PUSH Q6H PRN PRN Reason: HYPERTENSION Last Admin: 07/21/18 07:31 Dose: 1.25 mg Hydralazine HCl (Apresoline Inj) 20 mg IV.PUSH Q4H PRN PRN Reason: SBP>160, DBP>90 Potassium Chloride/Sodium Chloride (Ns + Kcl 20 Meq Inj) 1,000 mls @ 80 mls/hr IV.CONT .[id number] [facility] Last Admin: 07/21/18 10:16 Dose: 80 mls/hr Nicardipine HCl 25 mg/ Sodium (Chloride) 250 mls @ 50 mls/hr IV.CONT TITRATE PRN; Protocol PRN Reason: Per Protocol Last Admin: 07/21/18 18:17 Dose: 15 mg/hr, 150 mls/hr Lactulose (Lactulose Liq) 30 ml PO DAILY PRN PRN Reason: SEVERE CONSITIPATION Morphine Sulfate (Morphine Inj) 2 mg IV.PUSH Q3H PRN PRN Reason: PAIN 3-5; IF UABLE TO TAKE PO Last Admin: 07/20/18 11:11 Dose: 2 mg Morphine Sulfate (Morphine Inj) 4 mg IV.PUSH Q3H PRN PRN Reason: PAIN 6-10;IF UNABLE TO TAKE PO Last Admin: 07/21/18 13:40 Dose: 4 mg Morphine Sulfate (Morphine Inj) 4 mg IV.PUSH Q3H PRN PRN Reason: BREAKTHROUGH PAIN Last Admin: 07/17/18 21:48 Dose: 4 mg Morphine Sulfate (Morphine Inj) 4 mg IV.PUSH Q1H PRN PRN Reason: Pain Scale 7-10 (Intractable) Naloxone HCl (Narcan Inj) 0.4 mg IV.PUSH UNSCH PRN PRN Reason: SEE LABEL COMMENTS Nitroglycerin (Nitro-Bid 2% Oint) 1.5 inch TOPICAL Q6HR [facility] Last Admin: 07/21/18 18:18 Dose: 1.5 inch Ondansetron HCl (Zofran Inj) 4 mg IV.PUSH Q6H PRN PRN Reason: NAUSEA OR VOMITING Last Admin: 07/21/18 13:41 Dose: 4 mg Oxycodone/Acetaminophen (Percocet 10/325 Mg) 1 tab PO Q6H PRN PRN Reason: PAIN SCALE 6 TO 10 Last Admin: 07/20/18 19:30 Dose: 1 tab Oxycodone/Acetaminophen (Percocet 5/325 Mg) 1 tab PO Q6H PRN PRN Reason: PAIN SCALE 3 TO 5 Pantoprazole Sodium (Protonix Inj) 40 mg IV.PUSH Q24H [facility] Last Admin: 07/21/18 18:18 Dose: 40 mg Senna/Docusate Sodium (Beth-Colace) 1 tab PO BID [facility] Last Admin: 07/21/18 10:10 Dose: Not Given Sennosides (Senokot) 17.2 mg PO Q12H PRN PRN Reason: Moderate Constipation Sodium Chloride (Ns Flush) 2 ml IV.FLUSH BID [facility] Last Admin: 07/21/18 10:10 Dose: Not Given Sodium Chloride (Ns Flush) 2 ml IV.FLUSH PRN PRN PRN Reason: FLUSH AFTER USING IV ACCESS Tamsulosin HCl (Flomax) 0.4 mg PO BID [facility] Last Admin: 07/21/18 10:10 Dose: Not Given Throat Lozenges (Chloraseptic [place]) 2 spray OROPHARYNG Q2H PRN PRN Reason: SORE THROAT Last Admin: 07/18/18 03:45 Dose: 2 spray Allergies Allergy/AdvReac Type Severity Reaction Status Date / Time No Known Allergies Allergy Verified 07/17/18 11:34 Home Medications Medication Instructions Recorded Confirmed Type atorvastatin 40 mg PO DAILY 07/17/18 07/17/18 History cyanocobalamin (vitamin B-12) 1,000 mcg PO DAILY 07/17/18 07/17/18 History [Vitamin B-12] metoprolol succinate 50 mg PO DAILY 07/17/18 07/17/18 History pantoprazole [Protonix] 40 mg PO DAILY 07/17/18 07/17/18 History tamsulosin 0.4 mg PO DAILY 07/17/18 07/17/18 History Exam Vital signs: Vital Signs 07/20/18 20:00 07/20/18 20:45 07/21/18 00:00 Temperature 98.1 F 98.0 F Pulse Rate 60 59 L Respiratory Rate 16 16 Blood Pressure 193/92 H 148/79 H 181/88 H Pulse Oximetry 97 98 07/21/18 04:00 07/21/18 05:16 07/21/18 07:43 Temperature 97.8 F Pulse Rate 60 Respiratory Rate 15 19 Blood Pressure 197/95 H 182/90 H Pulse Oximetry 97 07/21/18 08:00 07/21/18 12:00 07/21/18 15:00 Temperature 98.2 F 97.8 F 98.2 F Pulse Rate 61 62 65 Respiratory Rate 24 20 19 Blood Pressure 194/99 H 189/96 H 213/108 H Pulse Oximetry 99 95 100 07/21/18 15:45 07/21/18 16:22 Temperature 98.4 F Pulse Rate 65 Respiratory Rate 17 Blood Pressure 224/119 H Pulse Oximetry 100 100 Intake & Output 07/21/18 07/21/18 07/22/18 06:59 18:59 06:59 Intake Total 1155 / 1155 670 / 670 Output Total 925 / 925 350 / 350 Balance 230 / 230 320 / 320 Weight 83.6 kg Intake: IV 1155 / 1155 670 / 670 D5W/1/2NS + KCL 20 mEq Inj 1, 1000 / 1000 420 / 420 000 ML @ 100 mls/hr IV.CONT . Q10H [facility] Rx#:[id number] Cardene Inj 25 MG In NS Inj 240 250 / 250 ML @ 5 MG/HR 50 mls/hr IV.CONT TITRATE PRN Rx#:[id number] Potassium Phosphate Inj 15 MMOL 150 / 150 In NS Inj 150 ML @ 38.75 mls/ hr IV.SIG ONCE ONE Rx#:[id number] Oral 0 / 0 Output: Urine 350 / 350 Urine Amount (Catheter) 800 / 800 Indwelling Urethral Catheter 800 / 800 Gastric Drainage 125 / 125 Right Nare Nasogastric Tube 125 / 125 Other: Date of Last Bowel Movement 07/16/18 07/16/18 # Bowel Movements 0 Narrative: A&O x 3 CN II-XII intact Motor 5/5 UE and LE to my bedside testing No major complaint of headache this evening. Results - Laboratory Findings CBC and BMP: 07/20/18 03:47 07/21/18 03:55 Abnormal lab findings: Abnormal Labs 07/17/18 07/17/18 07/17/18 12:00 12:00 12:00 WBC 3.5 L RBC Plt Count 135 L Neut % (Auto) Ware % (Auto) Neut # (Auto) 1.7 L Lymph # (Auto) Sodium Chloride BUN Estimated GFR 80 L POC Glucose Random Glucose 107 H Calcium 8.3 L Phosphorus AST 12 L Troponin I Less than 0.02 L Albumin HDL Cholesterol Lipase 58 L Urine Clarity Urine Mucus 07/17/18 07/18/18 07/18/18 12:15 04:35 04:35 WBC 2.4 L RBC 4.45 L Plt Count 116 L Neut % (Auto) Ware % (Auto) 9.2 H Neut # (Auto) 1.2 L Lymph # (Auto) 0.8 L Sodium Chloride BUN 6 L Estimated GFR POC Glucose Random Glucose 108 H Calcium Phosphorus 2.4 L AST 14 L Troponin I Albumin 3.3 L HDL Cholesterol 38.0 L Lipase Urine Clarity Hazy H Urine Mucus Few H 07/19/18 07/19/18 07/20/18 03:29 03:29 03:47 WBC RBC Plt Count 129 L 138 L Neut % (Auto) 75.0 H 73.6 H Ware % (Auto) Neut # (Auto) Lymph # (Auto) 0.7 L Sodium Chloride BUN 3 L Estimated GFR POC Glucose Random Glucose 136 H Calcium Phosphorus 2.3 L AST Troponin I Albumin HDL Cholesterol Lipase Urine Clarity Urine Mucus 07/20/18 07/21/18 07/21/18 03:47 03:55 14:59 WBC RBC Plt Count Neut % (Auto) Ware % (Auto) Neut # (Auto) Lymph # (Auto) Sodium 133 L 130 L Chloride 95 L BUN 3 L 5 L Estimated GFR POC Glucose 121 H Random Glucose 134 H 138 H Calcium Phosphorus 2.4 L AST 13 L Troponin I Albumin HDL Cholesterol Lipase Urine Clarity Urine Mucus 07/21/18 17:43 WBC RBC Plt Count Neut % (Auto) Ware % (Auto) Neut # (Auto) Lymph # (Auto) Sodium Chloride BUN Estimated GFR POC Glucose Random Glucose Calcium Phosphorus AST Troponin I Less than 0.02 L Albumin HDL Cholesterol Lipase Urine Clarity Urine Mucus Assessment and Plan - Plan 72yoM with 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 F/u final read CTA but to my view, there is no aneurysm and the hemorrhage appears stable. Control underlying HTN. Neuro checks overnight No surgical intervention anticipated for this size and location given good neurologic exam. Consider Keppra 1gm IV load then 500mg bid x 7days, but this is optional, there is no evidence of seizure activity.
--- NOTE | 2018-07-21 19:56 | CT ---
EXAM DATE: 07/21/2018 4:38 PM EDT AGE/SEX: 72 years / Male INDICATIONS: Aneurysm CLINICAL DATA: This is the patient's initial encounter. Patient reports that signs and symptoms have been present for 2 days and indicates a pain score of 3/10. MEDICAL/SURGICAL HISTORY: Hypertension. CABG. RADIATION DOSE: 10.67 CTDI (mGy) ; Combined studies COMPARISON: No prior exams available for comparison. TECHNIQUE: Volumetric scanning was performed using a multirow detector CT scanner during bolus infus ion of 75 ml Omnipaque 350 (iohexol) nonionic water-soluble contrast as a cumulative dose for multip le exams. The data was postprocessed with a variety of visualization algorithms including full-volu me maximum intensity projection, multiplanar sliding thin-slab reformation, curved-planar reformation , and surface-rendering techniques. Using automated exposure control and adjustment of the mA and/or kV according to patient size, radiation dose was kept as low as reasonably achievable to obtain opti mal diagnostic quality images. DICOM format image data is available electronically for review and co mparison. Percent stenosis is calculated using the diameter of the stenotic region over the diameter of the nor mal distal internal carotid artery. FINDINGS: The great vessel origins are patent. There is previous fusion of the cervical spine which creates str eak artifact and obscures a portion of the left common carotid artery. Common carotid arteries demons trate no significant stenosis. Mild atherosclerotic disease. There is mild to moderate ethmoid disease in both carotid bifurcations but without hemodynamically si gnificant stenosis. The right vertebral artery is dominant. Vertebral arteries are patent. CONCLUSION: 1. Mild to moderate atherosclerosis without hemodynamically significant carotid stenosis. Streak art ifact from cervical fusion obscures portion of left common carotid artery. NG tube is present. Right vertebral artery is dominant. Electronically signed by: Karl Ayers MD 07/21/2018 7:55 PM EDT
--- NOTE | 2018-07-21 22:20 | CT ---
EXAM DATE: 07/21/2018 9:23 PM EDT AGE/SEX: 72 years / Male INDICATIONS: Intracranial hemorrhage. CLINICAL DATA: This is the patient's subsequent encounter. Patient reports that signs and symptoms h ave been present for 1 day and indicates a pain score of Nonresponsive. MEDICAL/SURGICAL HISTORY: Hypertension. CABG. RADIATION DOSE: 38.37 CTDI (mGy) [place] [facility] [place]. . TECHNIQUE: CT of the head without contrast. Using automated exposure control and adjustment of the mA and/or kV according to patient size, radiation dose was kept as low as reasonably achievable to ob tain optimal diagnostic quality images. DICOM format image data is available electronically for revi ew and comparison. FINDINGS: Again seen is a hemorrhage in the right basal ganglia region nearly extending into the right temporal lobe measuring up to about 2.6 cm in diameter. There is some mild surrounding edema and localized ma ss effect. Trace hemorrhage in the occipital horn right lateral ventricle. Overall no significant mitzy nge since exam from earlier today. No hydrocephalus. CONCLUSION: 1. Relatively stable right basal ganglia hemorrhage compared with exam from earlier today. . Electronically signed by: Karl Ayers MD 07/21/2018 10:19 PM EDT
[2018-07-21] MEDS: Morphine Sulfate Inj 2 MG/ML Vial IV.PUSH PRN (22:49)
[2018-07-22] MEDS: niCARdipine Inj 25 MG in Sodium Chlor 0.9% Inj 240 ML IV.CONT PRN ×4 (01:01→09:58)
[2018-07-22] MEDS: Morphine Sulfate Inj 2 MG/ML Vial IV.PUSH PRN ×3 (02:25→13:22)
--- NOTE | 2018-07-22 04:11 | XR ---
EXAM DATE: 07/22/2018 5:00 AM EDT AGE/SEX: 72 years / Male INDICATIONS: Difficulty breathing CLINICAL DATA: This is the patient's initial encounter. Patient reports that signs and symptoms have been present for 1 day and indicates a pain score of 0/10. MEDICAL/SURGICAL HISTORY: . Hypertension. Myocardial infarction CABG. COMPARISON: No prior exams available for comparison. FINDINGS: The patient is status post sternotomy. There is an NG tube in place with tip in the upper stomach. He art size is normal. There is patchy density at the right base. The left lung is grossly clear. There is surgical hardware in the lower cervical spine. Contrast is seen within the colon. CONCLUSION: Right base mild atelectasis or consolidation. Electronically signed by: Edgardo Miguel MD 07/22/2018 4:10 AM EDT
[2018-07-22 04:46] LABS: Baso % (Auto) 0.2 % (0.0-2.0); Eos % (Auto) 0.1 % (0.0-4.0); Hematocrit 44.4 % (39.0-51.0); Hemoglobin 14.8 gm/dL (13.0-17.0); Lymph # (Auto) 0.7 th/mm3 (1.0-4.8); Lymph % (Auto) 11.1 % (9.0-44.0); Mean Corpuscular HGB Conc 33.3 % (32.0-36.0); Mean Corpuscular Hemoglobin 30.3 pg (27.0-34.0); Mean Platelet Volume 8.8 fL (7.0-11.0); Mono # (Auto) 0.5 th/mm3 (0.0-0.9); Mono % (Auto) 8.1 % (0.0-8.0); Neut # (Auto) 4.8 th/mm3 (1.8-7.7); Neut % (Auto) 80.5 % (16.0-70.0); Platelet Count 156 th/mm3 (150-450); Red Blood Count 4.88 mil/mm3 (4.50-5.90); Red Cell Distribution Width 13.6 % (11.6-17.2); White Blood Count 5.9 th/mm3 (4.0-11.0)
[2018-07-22 05:09] LABS: Calcium 8.4 mg/dL (8.5-10.1); Carbon Dioxide 27.1 meq/L (21.0-32.0); Magnesium 1.7 mg/dL (1.5-2.5)
[2018-07-22] MEDS ORDERED: levETIRAcetam 1000mg/100mL Inj 100 ML IV.SIG ONE (06:47)
--- NOTE | 2018-07-22 09:04 | P.PNCC ---
Subjective Subjective Remarks/Hospital Course: 07/21: 72-year-old male with a medical history significant for colon cancer, hypertension, CAD, hyperlipidemia who was admitted on 07/[address] abdomen pelvis revealed partial SBO. He had an NG tube placed for decompression and was evaluated by general surgery. He was also seen by cardiology and underwent a 2D echo which showed normal LV function. Patient has been complaining of a headache for a few weeks off and on. His blood pressure shot up over the last [address] done this morning revealed left basal ganglia bleed with small amount of blood in the lateral ventricle. Patient was transferred to the ICU, neurosurgery consulted, critical care was consulted by Dr. Carlin for hypertensive emergency and ICH. I evaluated the patient following his arrival in the ICU. At that time he was resting in bed, not in any acute distress. He was complaining of a headache. He denies any weakness in his upper extremities. On testing he was noted to have weakness in the left lower extremity. He had been scheduled for laparoscopy later today which has been postponed at this time. 07/22: Resting in bed. Complains of shoulder pain and headache off and on. On nicardipine drip with his blood pressures controlled. Repeat head CT done yesterday showed stable basal ganglia bleed. Started on Keppra this morning per neurosurgery recommendations. He is otherwise awake and alert moving all 4 extremities. NG tube remains to low intermittent wall suction. Objective Vital Signs / I&O: Vital Signs 07/21/18 12:00 07/21/18 15:00 07/21/18 15:45 Temperature 97.8 F 98.2 F 98.4 F Pulse Rate 62 65 65 Respiratory Rate 20 19 17 Blood Pressure 189/96 H 213/108 H 224/119 H Pulse Oximetry 95 100 100 07/21/18 16:22 07/21/18 20:00 07/21/18 23:39 Temperature 98.0 F Pulse Rate 94 H Respiratory Rate 15 Blood Pressure 130/64 Pulse Oximetry 100 100 99 07/22/18 00:00 07/22/18 04:00 07/22/18 07:47 Temperature 98.3 F 98.6 F Pulse Rate 82 88 Respiratory Rate 16 19 Blood Pressure 127/59 L 110/50 L Pulse Oximetry 100 97 98 Intake & Output 07/21/18 07/22/18 07/22/18 18:59 06:59 18:59 Intake Total 670 / 670 2500 / 2500 Output Total 825 / 825 360 / 360 Balance -155 / -155 2140 / 2140 Weight 83.6 kg Intake: IV 670 / 670 2500 / 2500 D5W/1/2NS + KCL 20 mEq Inj 1, 420 / 420 000 ML @ 100 mls/hr IV.CONT . Q10H [facility] Rx#:[id number] NS + KCl 20 mEq Inj 1,000 ML @ 1000 / 1000 80 mls/hr IV.CONT .[id number] [facility] Rx#:[id number] Cardene Inj 25 MG In NS Inj 240 250 / 250 1500 / 1500 ML @ 5 MG/HR 50 mls/hr IV.CONT TITRATE PRN Rx#:[id number] Oral 0 / 0 Output: Urine 350 / 350 Urine Amount (Catheter) 475 / 475 360 / 360 Indwelling Urethral Catheter 475 / 475 360 / 360 Other: Date of Last Bowel Movement 07/16/18 07/16/18 # Bowel Movements 0 Result Diagrams: 07/22/18 04:36 07/22/18 04:36 Objective Remarks: HEENT/Neuro: No pallor or icterus, tongue moist, IKP, Awake alert oriented 3 , moving all 4 extremities. Left lower extremity weakness noted with grade 4 power. NG tube in place to low intermittent wall suction Neck: No JVD Chest/pulmonary: CTA bilaterally Cardiovascular: S1-S2 regular no gallop or murmur GI/abdomen: Soft, nontender, bowel sounds sluggish Extremities: Warm bilaterally, no edema Assessment and Plan - Assessment and Plan Plan: 72-year-old male with: ICH secondary to hypertension Hypertensive emergency SBO CAD Hyperlipidemia Plan: Neuro: Neuro checks per protocol. CTA brain with no aneurysm. Repeat head CT done yesterday showed stable basal ganglia bleed.. Neurosurgery consulted.. Antihypertensives including Cardene and hydralazine as needed to keep SBP below 140-150 mmHg. Cardiovascular: IV hydration. Started Cardene GTT as well as hydralazine as needed. Lopressor held on admission due to bradycardia, cardiology following. Check twelve-lead EKG. 2D echo with normal LV function Pulmonary: Supplemental O2 as needed, bronchodilators as needed. GI/liver: N.p.o., NG tube to low intermittent wall suction. General surgery following. Laparoscopy postponed at this time due to ICH. Discussed with neurosurgery. His repeat head CT shows stable basal ganglia bleed possibly may be able to have surgery on 07/25. Renal/: IV hydration, strict intake output, monitor and replete electrolytes, follow BUN/creatinine ID: No indication for antibiotics at this time. Endocrine: Watch for hyperglycemia, SSI for glycemic control if needed. Prophylaxis: PPI/SCDs. No subcu heparin or Lovenox in view of ICH Condition critical Time spent on critical care excluding procedures 35 minutes.
[2018-07-22] MEDS: Sodium Chloride 0.9% 2 ML Flush BID IV.FLUSH SCH ×2 (09:58→21:37)
[2018-07-22] MEDS: Senna/Docusate Sodium 8.6/50 MG Tablet PO SCH ×2 (09:58→21:38)
--- NOTE | 2018-07-22 11:17 | CT ---
EXAM DATE: 07/22/2018 10:56 AM EDT AGE/SEX: 72 years / Male INDICATIONS: F/U intracerebral hemorrhage. CLINICAL DATA: This is the patient's subsequent encounter. Patient reports that signs and symptoms h ave been present for 1 day and indicates a pain score of 0/10. MEDICAL/SURGICAL HISTORY: Cerebrovascular disease. Hypertension. Cardiovascular disease. small b owel obstruction . c-spine surgery, colon surgery RADIATION DOSE: 66.34 CTDI (mGy) COMPARISON: [facility] – [place], [place] HEAD W/O CONTRAST, 07/21/2018. . TECHNIQUE: CT of the head without contrast. Using automated exposure control and adjustment of the mA and/or kV according to patient size, radiation dose was kept as low as reasonably achievable to ob tain optimal diagnostic quality images. DICOM format image data is available electronically for revi ew and comparison. FINDINGS: Right temporal parenchymal hematoma is unchanged in size and appearance. Minimal adjacent edema is al so unchanged. Elsewhere, there is patchy mild diminished attenuation in periventricular white matter. Ventricles are stable. Posterior fossa and brainstem structures are stable and benign. Left hemisphe re is stable and benign. CONCLUSION: No significant change. . Electronically signed by: Edgardo Gutierrez MD 07/22/2018 11:16 AM EDT
[2018-07-22] MEDS: hydrALAZINE HCl Inj 20 MG/ML Vial IV.PUSH PRN ×2 (14:12→21:38)
--- NOTE | 2018-07-22 16:08 | P.PNGS ---
Subjective Patient reports: no new complaints, still having pain (JIMENEZ) Physical Exam Vital signs: Vital Signs 07/21/18 16:22 07/21/18 20:00 07/21/18 23:39 Temperature 98.0 F Pulse Rate 94 H Respiratory Rate 15 Blood Pressure 130/64 Pulse Oximetry 100 100 99 07/22/18 00:00 07/22/18 04:00 07/22/18 07:47 Temperature 98.3 F 98.6 F Pulse Rate 82 88 Respiratory Rate 16 19 Blood Pressure 127/59 L 110/50 L Pulse Oximetry 100 97 98 07/22/18 08:00 07/22/18 09:09 07/22/18 09:24 Temperature Pulse Rate 90 Respiratory Rate 9 L Blood Pressure 128/60 131/62 Pulse Oximetry 98 98 07/22/18 09:39 07/22/18 09:54 07/22/18 10:00 Temperature Pulse Rate 101 H 91 H 88 Respiratory Rate 29 H 22 28 H Blood Pressure 132/77 122/60 Pulse Oximetry 96 99 98 07/22/18 10:09 07/22/18 10:24 07/22/18 10:39 Temperature Pulse Rate 84 82 82 Respiratory Rate 19 12 9 L Blood Pressure 136/66 132/65 133/64 Pulse Oximetry 99 98 99 07/22/18 11:00 07/22/18 11:09 07/22/18 11:24 Temperature Pulse Rate 87 86 85 Respiratory Rate 40 H 34 H 4 L Blood Pressure 134/60 141/66 H Pulse Oximetry 97 97 97 07/22/18 11:39 07/22/18 11:54 07/22/18 12:00 Temperature 98.1 F Pulse Rate 85 89 83 Respiratory Rate 17 24 19 Blood Pressure 139/65 132/57 L Pulse Oximetry 98 98 96 07/22/18 12:09 07/22/18 12:24 07/22/18 12:39 Temperature Pulse Rate 86 90 97 H Respiratory Rate 18 24 0 L Blood Pressure 133/64 114/55 L 117/58 L Pulse Oximetry 94 L 98 98 07/22/18 12:54 07/22/18 13:00 07/22/18 13:09 Temperature Pulse Rate 96 H 92 H 96 H Respiratory Rate 0 L 0 L 0 L Blood Pressure 115/59 L 119/58 L Pulse Oximetry 98 98 98 07/22/18 13:24 07/22/18 13:26 07/22/18 13:39 Temperature Pulse Rate 89 92 H 86 Respiratory Rate 32 H 40 H 34 H Blood Pressure 147/64 H 144/65 H 139/61 Pulse Oximetry 98 98 98 07/22/18 13:54 07/22/18 14:00 07/22/18 14:09 Temperature Pulse Rate 89 90 90 Respiratory Rate 17 32 H 40 H Blood Pressure 146/68 H 150/72 H Pulse Oximetry 98 98 98 07/22/18 14:24 07/22/18 14:39 Temperature Pulse Rate 84 93 H Respiratory Rate 29 H 66 H Blood Pressure 139/64 127/58 L Pulse Oximetry 99 98 Intake & Output 07/21/18 07/22/18 07/22/18 18:59 06:59 18:59 Intake Total 670 / 670 2500 / 2500 1350 / 1350 Output Total 825 / 825 360 / 360 Balance -155 / -155 2140 / 2140 1350 / 1350 Weight 83.6 kg Intake: IV 670 / 670 2500 / 2500 1350 / 1350 D5W/1/2NS + KCL 20 mEq Inj 1, 420 / 420 000 ML @ 100 mls/hr IV.CONT . Q10H [facility] Rx#:[id number] NS + KCl 20 mEq Inj 1,000 ML @ 1000 / 1000 1000 / 1000 80 mls/hr IV.CONT .[id number] [facility] Rx#:[id number] Cardene Inj 25 MG In NS Inj 240 250 / 250 1500 / 1500 250 / 250 ML @ 5 MG/HR 50 mls/hr IV.CONT TITRATE PRN Rx#:[id number] Keppra 1000 mg/100 mL Premix 100 / 100 100 ML @ 400 mls/hr IV.SIG ONCE ONE Rx#:[id number] Oral 0 / 0 Output: Urine 350 / 350 Urine Amount (Catheter) 475 / 475 360 / 360 Indwelling Urethral Catheter 475 / 475 360 / 360 Other: Date of Last Bowel Movement 07/16/18 07/16/18 07/16/18 # Bowel Movements 0 - Constitutional no acute distress, mild distress - Routine Abdominal Exam Present: soft, normoactive bowel sounds, tenderness. Absent: distended, rebound , guarding - Urinary Catheter Management Straight Cath placed during this visit: yes, but has since been removed by the nurse Reason for continuing: Acute urinary retention Insertion date: 07/18/18 Insertion time: 20:15 Removal date: 07/18/18 Removal time: 13:00 Indwelling Urethral Catheter Cath placed during this visit: no Reason for continuing: Acute urinary retention Results - Labs 07/22/18 04:36 07/22/18 04:36 Laboratory Results - last 24 hr 07/21/18 07/22/18 07/22/18 17:43 04:36 04:36 WBC 5.9 RBC 4.88 Hgb 14.8 Hct 44.4 MCV 91.0 MCH 30.3 MCHC 33.3 RDW 13.6 Plt Count 156 MPV 8.8 Neut % (Auto) 80.5 H Lymph % (Auto) 11.1 [place] % (Auto) 8.1 H Eos % (Auto) 0.1 Baso % (Auto) 0.2 Neut # (Auto) 4.8 Lymph # (Auto) 0.7 L [place] # (Auto) 0.5 Eos # (Auto) 0.0 Baso # (Auto) 0.0 WBC Differential . Differential Comment Auto diff final Sodium 132 L Potassium 4.0 Chloride 98 Carbon Dioxide 27.1 Anion Gap 7 BUN 12 Creatinine 1.03 Estimated GFR 86 L Random Glucose 110 H Calcium 8.4 L Magnesium 1.7 Troponin I Less than 0.02 L - Imaging Imaging: ITS Impressions Abdomen/Pelvis CT 07/17/18 11:38 CONCLUSION: 1. Several loops of marginally distended proximal ileum in the left abdomen with mild fecalization and diffuse bowel wall thickening. Relative transition point in the midabdomen and left upper quadrant with decompressed proximal and distal bowel loops. Overall findings are most consistent with a partial small bowel obstruction likely secondary to adhesions. Findings are new since 2016 although the fecalization suggests a somewhat subacute etiology. No evidence for bowel infarction or perforation. 2. 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 3. Stable additional ancillary findings, as above. Abdomen X-Ray 07/19/18 06:00 CONCLUSION: 1. Stable NGT in the stomach. 2. Improved small bowel distention consistent with resolving partial small bowel obstruction. Small Bowel X-Ray 07/20/18 00:00 CONCLUSION: There is no current small bowel obstruction. There is delayed passage of contrast through small bowel. Head CTA 07/21/18 15:00 CONCLUSION: 1. Negative CTA Head. Neck CTA 07/21/18 15:25 CONCLUSION: 1. Mild to moderate atherosclerosis without hemodynamically significant carotid stenosis. Streak artifact from cervical fusion obscures portion of left common carotid artery. NG tube is present. Right vertebral artery is dominant. Head CT 07/22/18 00:00 CONCLUSION: No significant change. . Chest X-Ray 07/22/18 05:00 CONCLUSION: Right base mild atelectasis or consolidation. Assessment and Plan - Assessment (1) Small bowel obstruction Code(s): K56.609 - Unspecified intestinal obstruction, unspecified as to partial versus complete obstruction Status: Acute Plan: 72 year old male with SBO -SBFT shows no definitive obstruction, may still open up with time - favor non-operative management due to high risk for OR 2/2 intracranial bleed , NG to LIS - will follow - d/w critical care and bedside nurse
[2018-07-22] MEDS: Pantoprazole Inj 40 MG Vial IV.PUSH SCH (18:08)
[2018-07-22] MEDS: Morphine Inj 4 MG/ML Vial IV.PUSH PRN ×2 (18:09→22:04)
--- NOTE | 2018-07-22 18:13 | ECG ---
Date Performed: 07/21/2018 Time Performed: 16:16:50 PTAGE: 72 years EKG: Sinus rhythm . Short VT interval Extensive ST-T changes suggest myocardial injury/ischemia Since the previous trac ing, no significant change noted. ST depression is new Abnormal ECG NO PREVIOUS TRACING DOCTOR: Moiz Mckeon Interpretating Date/Time 07/22/2018 18:12:37
[2018-07-23] MEDS: Morphine Inj 4 MG/ML Vial IV.PUSH PRN ×3 (05:40→22:35)
[2018-07-23] MEDS: hydrALAZINE HCl Inj 20 MG/ML Vial IV.PUSH PRN ×2 (07:20→19:26)
[2018-07-23] MEDS: Sodium Chloride 0.9% 2 ML Flush BID IV.FLUSH SCH ×2 (09:27→21:26)
[2018-07-23] MEDS: Senna/Docusate Sodium 8.6/50 MG Tablet PO SCH ×2 (09:27→21:26)
--- NOTE | 2018-07-23 10:42 | P.PNCC ---
Subjective Subjective Remarks/Hospital Course: 07/21: 72-year-old male with a medical history significant for colon cancer, hypertension, CAD, hyperlipidemia who was admitted on 07/[address] abdomen pelvis revealed partial SBO. He had an NG tube placed for decompression and was evaluated by general surgery. He was also seen by cardiology and underwent a 2D echo which showed normal LV function. Patient has been complaining of a headache for a few weeks off and on. His blood pressure shot up over the last [address] done this morning revealed left basal ganglia bleed with small amount of blood in the lateral ventricle. Patient was transferred to the ICU, neurosurgery consulted, critical care was consulted by Dr. Carlin for hypertensive emergency and ICH. I evaluated the patient following his arrival in the ICU. At that time he was resting in bed, not in any acute distress. He was complaining of a headache. He denies any weakness in his upper extremities. On testing he was noted to have weakness in the left lower extremity. He had been scheduled for laparoscopy later today which has been postponed at this time. 07/22: Resting in bed. Complains of shoulder pain and headache off and on. On nicardipine drip with his blood pressures controlled. Repeat head CT done yesterday showed stable basal ganglia bleed. Started on Keppra this morning per neurosurgery recommendations. He is otherwise awake and alert moving all 4 extremities. NG tube remains to low intermittent wall suction. Subjective: 07/23 Off cardene drip since yesterday around noon. General surgery managing SBO nonoperatively currently. Objective Vital Signs / I&O: Vital Signs 07/22/18 11:00 07/22/18 11:09 07/22/18 11:24 Temperature Pulse Rate 87 86 85 Respiratory Rate 40 H 34 H 4 L Blood Pressure 134/60 141/66 H Pulse Oximetry 97 97 97 07/22/18 11:39 07/22/18 11:54 07/22/18 12:00 Temperature 98.1 F Pulse Rate 85 89 83 Respiratory Rate 17 24 19 Blood Pressure 139/65 132/57 L Pulse Oximetry 98 98 96 07/22/18 12:09 07/22/18 12:24 07/22/18 12:39 Temperature Pulse Rate 86 90 97 H Respiratory Rate 18 24 0 L Blood Pressure 133/64 114/55 L 117/58 L Pulse Oximetry 94 L 98 98 10/19/18 12:54 07/22/18 13:00 07/22/18 13:09 Temperature Pulse Rate 96 H 92 H 96 H Respiratory Rate 0 L 0 L 0 L Blood Pressure 115/59 L 119/58 L Pulse Oximetry 98 98 98 07/22/18 13:24 07/22/18 13:26 07/22/18 13:39 Temperature Pulse Rate 89 92 H 86 Respiratory Rate 32 H 40 H 34 H Blood Pressure 147/64 H 144/65 H 139/61 Pulse Oximetry 98 98 98 07/22/18 13:54 07/22/18 14:00 07/22/18 14:09 Temperature Pulse Rate 89 90 90 Respiratory Rate 17 32 H 40 H Blood Pressure 146/68 H 150/72 H Pulse Oximetry 98 98 98 07/22/18 14:24 07/22/18 14:39 07/22/18 14:54 Temperature Pulse Rate 84 93 H 96 H Respiratory Rate 29 H 66 H 29 H Blood Pressure 139/64 127/58 L 122/62 Pulse Oximetry 99 98 98 07/22/18 15:00 07/22/18 15:09 07/22/18 15:24 Temperature 98.1 F Pulse Rate 92 H 98 H 86 Respiratory Rate 30 H 41 H 53 H Blood Pressure 130/60 136/65 Pulse Oximetry 98 97 97 07/22/18 15:39 07/22/18 15:54 07/22/18 16:00 Temperature Pulse Rate 93 H 96 H 88 Respiratory Rate 81 H 57 H 44 H Blood Pressure 135/68 131/63 Pulse Oximetry 97 97 97 07/22/18 16:09 07/22/18 16:24 07/22/18 16:39 Temperature Pulse Rate 97 H 97 H 93 H Respiratory Rate 71 H 42 H Blood Pressure 135/68 135/73 137/69 Pulse Oximetry 98 97 97 07/22/18 16:54 07/22/18 19:55 07/22/18 20:00 Temperature 99 F Pulse Rate 89 94 H Respiratory Rate 32 H 22 Blood Pressure 141/69 H 152/79 H Pulse Oximetry 97 99 99 07/22/18 22:00 07/23/18 00:00 07/23/18 02:00 Temperature 98.5 F Pulse Rate 97 H 95 H 106 H Respiratory Rate 22 Blood Pressure 135/74 Pulse Oximetry 95 07/23/18 04:00 07/23/18 06:00 07/23/18 07:31 Temperature 98.5 F Pulse Rate 81 90 Respiratory Rate 21 Blood Pressure 113/64 Pulse Oximetry 93 L 100 07/23/18 08:00 Temperature Pulse Rate Respiratory Rate 22 Blood Pressure Pulse Oximetry 95 Intake & Output 07/22/18 07/23/18 07/23/18 18:59 06:59 18:59 Intake Total 1350 / 1350 1105 / 1105 105 / 105 Output Total 375 / 375 575 / 575 Balance 975 / 975 530 / 530 105 / 105 Intake: IV 1350 / 1350 1105 / 1105 105 / 105 NS + KCl 20 mEq Inj 1,000 ML @ 1000 / 1000 1000 / 1000 80 mls/hr IV.CONT .[id number] [facility] Rx#:[id number] Cardene Inj 25 MG In NS Inj 240 250 / 250 ML @ 5 MG/HR 50 mls/hr IV.CONT TITRATE PRN Rx#:[id number] Keppra 1000 mg/100 mL Premix 100 / 100 100 ML @ 400 mls/hr IV.SIG ONCE ONE Rx#:[id number] Keppra Inj 500 MG In NS Inj 100 105 / 105 105 / 105 ML @ 400 mls/hr IV.SIG Q12H [facility] Rx#:[id number] Output: Urine Amount (Catheter) 375 / 375 525 / 525 Indwelling Urethral Catheter 375 / 375 525 / 525 Gastric Drainage 50 / 50 Left Nare 50 / 50 Other: Date of Last Bowel Movement 07/16/18 07/16/18 07/22/18 Result Diagrams: 07/24/18 03:16 07/26/18 13:49 Objective Remarks: GENERAL: Well-nourished, well-developed patient who is sitting up in ISC bed, lethargic but arouses to voice and follows commands. SKIN: Warm and dry. HEAD: Atraumatic. Normocephalic. EYES: Pupils equal and round. No scleral icterus. ENT: No nasal bleeding or discharge. Mucous membranes pink and moist. NECK: Trachea midline. No JVD. CARDIOVASCULAR: Regular rate and rhythm. No murmurs rubs or gallops. RESPIRATORY: No accessory muscle use. Clear to auscultation. Breath sounds equal bilaterally. on 2 L NC. GASTROINTESTINAL: NGT to LIWS, Abdomen soft, mildly distended, nontender with hypoactive bowel sounds. MUSCULOSKELETAL: Extremities without clubbing, cyanosis, or edema. No obvious deformities. NEUROLOGICAL: Awakens to voice and answers questions. Strength 5/5 BUE except 4+ /5 R biceps. Strength 4-/5 L hip flexor/ankle plantar and dorsiflexion. Assessment and Plan - Assessment and Plan Plan: 72-year-old male with: ICH secondary to hypertension Hypertensive emergency SBO CAD Hyperlipidemia Plan: Neuro: Neuro checks per protocol. CTA brain with no aneurysm. Repeat head CT done 07/22 showed stable basal ganglia bleed.. Neurosurgery consulted.. Maintain SBP <160, off cardene drip. Metoprolol 5 mg IV q6 hours and Hydralazine prn. Cardiovascular: IV hydration 80/hr. On hydralazine as needed. Lopressor held on admission due to bradycardia, cardiology following. 2D echo with normal LV function Pulmonary: Supplemental O2 as needed, bronchodilators as needed. GI/liver: N.p.o., NG tube to low intermittent wall suction. General surgery following. I discussed with Dr. Mace and patient is appropriate for laparoscopy whenever general surgery wishes to proceed. Renal/: IV hydration, strict intake output, monitor and replete electrolytes, follow BUN/creatinine ID: No indication for antibiotics at this time. Endocrine: Watch for hyperglycemia, SSI for glycemic control if needed. Prophylaxis: PPI/SCDs. No subcu heparin or Lovenox in view of ICH FULL CODE Level 2 followup. Consult hospitalist to assume care. Transfer to [facility] as he requires IV meds for BP control, po not an option due to SBO. Discussed with Dr. Ortega and Dr. Mace.
[2018-07-23] MEDS: Morphine Sulfate Inj 2 MG/ML Vial IV.PUSH PRN (12:51)
[2018-07-23 14:23] LABS: Baso % (Auto) 0.2 % (0.0-2.0); Eos % (Auto) 0.3 % (0.0-4.0); Hematocrit 43.9 % (39.0-51.0); Hemoglobin 14.8 gm/dL (13.0-17.0); Lymph # (Auto) 1.1 th/mm3 (1.0-4.8); Lymph % (Auto) 30.9 % (9.0-44.0); Mean Corpuscular HGB Conc 33.7 % (32.0-36.0); Mean Corpuscular Hemoglobin 30.7 pg (27.0-34.0); Mean Corpuscular Volume 90.9 fL (80.0-100.0); Mean Platelet Volume 8.8 fL (7.0-11.0); Mono # (Auto) 0.5 th/mm3 (0.0-0.9); Mono % (Auto) 14.6 % (0.0-8.0); Neut # (Auto) 1.9 th/mm3 (1.8-7.7); Platelet Count 172 th/mm3 (150-450); Red Blood Count 4.83 mil/mm3 (4.50-5.90); Red Cell Distribution Width 13.8 % (11.6-17.2); White Blood Count 3.5 th/mm3 (4.0-11.0)
[2018-07-23 14:44] LABS: Anion Gap 9 meq/L (5-15); Blood Urea Nitrogen 14 mg/dL (7-18); Calcium 8.8 mg/dL (8.5-10.1); Carbon Dioxide 25.5 meq/L (21.0-32.0); Chloride 104 meq/L (98-107); Glomerular Filtration Rate Greater Than 89 mL/min (>89); Glucose,Random 106 mg/dL (74-106); Potassium 3.9 meq/L (3.5-5.1); Sodium 138 meq/L (136-145)
--- NOTE | 2018-07-23 15:09 | P.PNNS ---
Subjective Interval history: No events. Headache continues and treatment with pain medication. Remains fully oriented with mild left sided weakness. Physical Exam Vital signs: Vital Signs 07/22/18 15:09 07/22/18 15:24 07/22/18 15:39 Temperature 98.1 F Pulse Rate 98 H 86 93 H Respiratory Rate 41 H 53 H 81 H Blood Pressure 130/60 136/65 135/68 Pulse Oximetry 97 97 97 07/22/18 15:54 07/22/18 16:00 07/22/18 16:09 Temperature Pulse Rate 96 H 88 97 H Respiratory Rate 57 H 44 H 71 H Blood Pressure 131/63 135/68 Pulse Oximetry 97 97 98 07/22/18 16:24 07/22/18 16:39 07/22/18 16:54 Temperature Pulse Rate 97 H 93 H 89 Respiratory Rate 42 H 32 H Blood Pressure 135/73 137/69 141/69 H Pulse Oximetry 97 97 97 07/22/18 19:55 07/22/18 20:00 07/22/18 22:00 Temperature 99 F Pulse Rate 94 H 97 H Respiratory Rate 22 Blood Pressure 152/79 H Pulse Oximetry 99 99 07/23/18 00:00 07/23/18 02:00 07/23/18 04:00 Temperature 98.5 F 98.5 F Pulse Rate 95 H 106 H 81 Respiratory Rate 22 21 Blood Pressure 135/74 113/64 Pulse Oximetry 95 93 L 07/23/18 06:00 07/23/18 07:31 07/23/18 08:00 Temperature Pulse Rate 90 Respiratory Rate 22 Blood Pressure Pulse Oximetry 100 95 Intake & Output 07/22/18 07/23/18 07/23/18 18:59 06:59 18:59 Intake Total 1350 / 1350 1105 / 1105 105 / 105 Output Total 375 / 375 575 / 575 Balance 975 / 975 530 / 530 105 / 105 Intake: IV 1350 / 1350 1105 / 1105 105 / 105 NS + KCl 20 mEq Inj 1,000 ML @ 1000 / 1000 1000 / 1000 80 mls/hr IV.CONT .[id number] [facility] Rx#:[id number] Cardene Inj 25 MG In NS Inj 240 250 / 250 ML @ 5 MG/HR 50 mls/hr IV.CONT TITRATE PRN Rx#:[id number] Keppra 1000 mg/100 mL Premix 100 / 100 100 ML @ 400 mls/hr IV.SIG ONCE ONE Rx#:[id number] Keppra Inj 500 MG In NS Inj 100 105 / 105 105 / 105 ML @ 400 mls/hr IV.SIG Q12H [facility] Rx#:[id number] Output: Urine Amount (Catheter) 375 / 375 525 / 525 Indwelling Urethral Catheter 375 / 375 525 / 525 Gastric Drainage 50 / 50 Left Nare 50 / 50 Other: Date of Last Bowel Movement 07/16/18 07/16/18 07/22/18 - Urinary Catheter Management Straight Cath placed during this visit: yes, but has since been removed by the nurse Reason for continuing: Acute urinary retention Insertion date: 07/18/18 Insertion time: 20:15 Removal date: 07/18/18 Removal time: 13:00 Indwelling Urethral Catheter Cath placed during this visit: no Reason for continuing: Acute urinary retention Assessment and Plan - Plan 72yoM with 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 Several CTs have been stable. Control underlying HTN. Neuro checks. No surgical intervention anticipated for this size and location given good neurologic exam. Continue Keppra x 1 wk. Ok to proceed with G.surg procedure next week for sbo.
[2018-07-23] MEDS ORDERED: Metoprolol Inj 5 MG/5 ML Vial IV.PUSH SCH (16:00)
--- NOTE | 2018-07-23 17:40 | P.PN ---
Subjective Interval history: Not seen today. Consulted by critical care medicine for transfer care and medical management. Physical Exam Vital signs: Vital Signs 07/22/18 19:55 07/22/18 20:00 07/22/18 22:00 Temperature 99 F Pulse Rate 94 H 97 H Respiratory Rate 22 Blood Pressure 152/79 H Pulse Oximetry 99 99 07/23/18 00:00 07/23/18 02:00 07/23/18 04:00 Temperature 98.5 F 98.5 F Pulse Rate 95 H 106 H 81 Respiratory Rate 22 21 Blood Pressure 135/74 113/64 Pulse Oximetry 95 93 L 07/23/18 06:00 07/23/18 07:31 07/23/18 08:00 Temperature Pulse Rate 90 Respiratory Rate 22 Blood Pressure Pulse Oximetry 100 95 Intake & Output 07/22/18 07/23/18 07/23/18 18:59 06:59 18:59 Intake Total 1350 / 1350 1105 / 1105 105 / 105 Output Total 375 / 375 575 / 575 Balance 975 / 975 530 / 530 105 / 105 Intake: IV 1350 / 1350 1105 / 1105 105 / 105 NS + KCl 20 mEq Inj 1,000 ML @ 1000 / 1000 1000 / 1000 80 mls/hr IV.CONT .[id number] [facility] Rx#:[id number] Cardene Inj 25 MG In NS Inj 240 250 / 250 ML @ 5 MG/HR 50 mls/hr IV.CONT TITRATE PRN Rx#:[id number] Keppra 1000 mg/100 mL Premix 100 / 100 100 ML @ 400 mls/hr IV.SIG ONCE ONE Rx#:[id number] Keppra Inj 500 MG In NS Inj 100 105 / 105 105 / 105 ML @ 400 mls/hr IV.SIG Q12H [facility] Rx#:[id number] Output: Urine Amount (Catheter) 375 / 375 525 / 525 Indwelling Urethral Catheter 375 / 375 525 / 525 Gastric Drainage 50 / 50 Left Nare 50 / 50 Other: Date of Last Bowel Movement 07/16/18 07/16/18 07/22/18 Narrative: GENERAL: Well-nourished, well-developed patient who is sitting up in ISC bed, lethargic but arouses to voice and follows commands. SKIN: Warm and dry. HEAD: Atraumatic. Normocephalic. EYES: Pupils equal and round. No scleral icterus. ENT: No nasal bleeding or discharge. Mucous membranes pink and moist. NECK: Trachea midline. No JVD. CARDIOVASCULAR: Regular rate and rhythm. No murmurs rubs or gallops. RESPIRATORY: No accessory muscle use. Clear to auscultation. Breath sounds equal bilaterally. on 2 L NC. GASTROINTESTINAL: NGT to LIWS, Abdomen soft, mildly distended, nontender with hypoactive bowel sounds. MUSCULOSKELETAL: Extremities without clubbing, cyanosis, or edema. No obvious deformities. NEUROLOGICAL: Awakens to voice and answers questions. Strength 5/5 BUE except 4+ /5 R biceps. Strength 4-/5 L hip flexor/ankle plantar and dorsiflexion. - Urinary Catheter Management Straight Cath placed during this visit: yes, but has since been removed by the nurse Reason for continuing: Acute urinary retention Insertion date: 07/18/18 Insertion time: 20:15 Removal date: 07/18/18 Removal time: 13:00 Indwelling Urethral Catheter Cath placed during this visit: no Reason for continuing: Acute urinary retention Results - Labs CBC & Chem 7: 07/23/18 13:46 07/23/18 13:46 Laboratory Results - last 24 hr 07/23/18 07/23/18 13:46 13:46 WBC 3.5 L RBC 4.83 Hgb 14.8 Hct 43.9 MCV 90.9 MCH 30.7 MCHC 33.7 RDW 13.8 Plt Count 172 MPV 8.8 Neut % (Auto) 54.0 Lymph % (Auto) 30.9 [place] % (Auto) 14.6 H Eos % (Auto) 0.3 Baso % (Auto) 0.2 Neut # (Auto) 1.9 Lymph # (Auto) 1.1 [place] # (Auto) 0.5 Eos # (Auto) 0.0 Baso # (Auto) 0.0 WBC Differential . Differential Comment Auto diff final Sodium 138 Potassium 3.9 Chloride 104 Carbon Dioxide 25.5 Anion Gap 9 BUN 14 Creatinine 0.78 Estimated GFR Greater than 89 Random Glucose 106 Calcium 8.8 Assessment and Plan - Assessment (1) Small bowel obstruction Code(s): K56.609 - Unspecified intestinal obstruction, unspecified as to partial versus complete obstruction Status: Acute - Plan 72-year-old male with: ICH secondary to hypertension Hypertensive emergency SBO CAD Bradycardia with junctional escape rhythm WCT Hyperlipidemia Urinary retention hx BPH Plan: Neuro: Neuro checks per protocol. CTA brain with no aneurysm. Repeat head CT done 07/22 showed stable basal ganglia bleed. Neurosurgery consulted.. Maintain SBP <160, off cardene drip. NTP and (Metoprolol 5 mg IV q6 hours) and Hydralazine prn. Cardiovascular: IV hydration 80/hr. On hydralazine as needed. Lopressor held on admission due to bradycardia, cardiology following. 2D echo with normal LV function Pulmonary: Supplemental O2 as needed, bronchodilators as needed. GI/liver: N.p.o., NG tube to low intermittent wall suction. General surgery following. Discussed with Dr. Mace and patient is appropriate for laparoscopy whenever general surgery wishes to proceed. Renal/: IV hydration, strict intake output, monitor and replete electrolytes, follow BUN/creatinine. Continue Flomax if tolerated. Mariee care ID: No indication for antibiotics at this time. Endocrine: Watch for hyperglycemia, SSI for glycemic control if needed. Prophylaxis: PPI/SCDs. No subcu heparin or Lovenox in view of ICH PT, increase activity as tolerated FULL CODE Discharge Planning: When cleared by GS and clinically improved
[2018-07-23] MEDS: Pantoprazole Inj 40 MG Vial IV.PUSH SCH (18:45)
--- NOTE | 2018-07-23 19:15 | P.PN ---
Subjective Interval history: Patient sleeping. Family states he still has a headache. Physical Exam Vital signs: Vital Signs 07/22/18 19:55 07/22/18 20:00 07/22/18 22:00 Temperature 99 F Pulse Rate 94 H 97 H Respiratory Rate 22 Blood Pressure 152/79 H Pulse Oximetry 99 99 07/23/18 00:00 07/23/18 02:00 07/23/18 04:00 Temperature 98.5 F 98.5 F Pulse Rate 95 H 106 H 81 Respiratory Rate 22 21 Blood Pressure 135/74 113/64 Pulse Oximetry 95 93 L 07/23/18 06:00 07/23/18 07:31 07/23/18 08:00 Temperature 98.0 F Pulse Rate 90 96 H Respiratory Rate 18 Blood Pressure 142/67 H Pulse Oximetry 100 97 07/23/18 10:00 07/23/18 12:00 07/23/18 14:00 Temperature 97.9 F Pulse Rate 98 H 108 H 92 H Respiratory Rate 26 H Blood Pressure 145/77 H Pulse Oximetry 96 07/23/18 16:00 07/23/18 17:54 07/23/18 18:00 Temperature 97.9 F Pulse Rate 102 H 88 Respiratory Rate 23 18 Blood Pressure 169/83 H Pulse Oximetry 94 L Intake & Output 07/23/18 07/23/18 07/24/18 06:59 18:59 06:59 Intake Total 1105 / 1105 1105 / 1105 Output Total 575 / 575 850 / 850 Balance 530 / 530 255 / 255 Intake: IV 1105 / 1105 1105 / 1105 NS + KCl 20 mEq Inj 1,000 ML @ 1000 / 1000 1000 / 1000 80 mls/hr IV.CONT .[id number] [facility] Rx#:[id number] Keppra Inj 500 MG In NS Inj 100 105 / 105 105 / 105 ML @ 400 mls/hr IV.SIG Q12H [facility] Rx#:[id number] Output: Urine Amount (Catheter) 525 / 525 850 / 850 Indwelling Urethral Catheter 525 / 525 850 / 850 Gastric Drainage 50 / 50 0 / 0 Left Nare 50 / 50 0 / 0 Other: Date of Last Bowel Movement 07/16/18 07/22/18 - Routine Abdominal Exam Present: soft Comments: Nondistended - Urinary Catheter Management Straight Cath placed during this visit: yes, but has since been removed by the nurse Reason for continuing: Acute urinary retention Insertion date: 07/18/18 Insertion time: 20:15 Removal date: 07/18/18 Removal time: 13:00 Indwelling Urethral Catheter Cath placed during this visit: no Reason for continuing: Acute urinary retention Results - Labs CBC & Chem 7: 07/23/18 13:46 07/23/18 13:46 Laboratory Results - last 24 hr 07/23/18 07/23/18 13:46 13:46 WBC 3.5 L RBC 4.83 Hgb 14.8 Hct 43.9 MCV 90.9 MCH 30.7 MCHC 33.7 RDW 13.8 Plt Count 172 MPV 8.8 Neut % (Auto) 54.0 Lymph % (Auto) 30.9 [place] % (Auto) 14.6 H Eos % (Auto) 0.3 Baso % (Auto) 0.2 Neut # (Auto) 1.9 Lymph # (Auto) 1.1 [place] # (Auto) 0.5 Eos # (Auto) 0.0 Baso # (Auto) 0.0 WBC Differential . Differential Comment Auto diff final Sodium 138 Potassium 3.9 Chloride 104 Carbon Dioxide 25.5 Anion Gap 9 BUN 14 Creatinine 0.78 Estimated GFR Greater than 89 Random Glucose 106 Calcium 8.8 Assessment and Plan - Assessment (1) Small bowel obstruction Code(s): K56.609 - Unspecified intestinal obstruction, unspecified as to partial versus complete obstruction Status: Acute Plan: Small bowel follow-through shows slow transit but contrast does reach colon. No acute need for emergent or urgent surgery. Okay for patient to go to the floor. Discussed with both Dr. Mace and Dr. Dempsey. Elective procedure could be contemplated later in the week. Discussed with Dr. Conner as well. - Plan Discussed Condition With: Daughter Nurse Dr. Ke Mace - Attending Attestation I attest that I had a [id number] encounter with the patient on the same day, and personally performed and documented my assessment and findings in the medical record. The following services were provided during this hospital visit: Chart data review, vital sign assessments/reviewing monitor data Review of consultation notes if present Medication orders/review and/or management Ordering and/or reviewing lab tests Ordering and/or interpreting/reviewing x-rays and/or diagnostic studies Care of the patient and discussion of the patient with the care team Documentation time To help prompt me to consider important information that might be impacting today's encounter and assessment, Information from prior notes written by myself or my colleagues may have been "brought forward/copy and pasted" into today's note.
[2018-07-24] MEDS: hydrALAZINE HCl Inj 20 MG/ML Vial IV.PUSH PRN ×5 (01:34→22:43)
[2018-07-24 04:09] LABS: Baso % (Auto) 0.3 % (0.0-2.0); Eos # (Auto) 0.1 th/mm3 (0.0-0.4); Eos % (Auto) 1.9 % (0.0-4.0); Hemoglobin 14.2 gm/dL (13.0-17.0); Lymph # (Auto) 0.8 th/mm3 (1.0-4.8); Lymph % (Auto) 26.2 % (9.0-44.0); Mean Corpuscular HGB Conc 33.9 % (32.0-36.0); Mean Corpuscular Hemoglobin 30.8 pg (27.0-34.0); Mean Corpuscular Volume 90.8 fL (80.0-100.0); Mean Platelet Volume 8.8 fL (7.0-11.0); Mono # (Auto) 0.6 th/mm3 (0.0-0.9); Mono % (Auto) 19.4 % (0.0-8.0); Neut # (Auto) 1.6 th/mm3 (1.8-7.7); Neut % (Auto) 52.2 % (16.0-70.0); Platelet Count 155 th/mm3 (150-450); Red Blood Count 4.63 mil/mm3 (4.50-5.90); Red Cell Distribution Width 13.9 % (11.6-17.2)
[2018-07-24 04:34] LABS: Anion Gap 8 meq/L (5-15); Blood Urea Nitrogen 12 mg/dL (7-18); Calcium 8.2 mg/dL (8.5-10.1); Carbon Dioxide 27.4 meq/L (21.0-32.0); Chloride 102 meq/L (98-107); Glomerular Filtration Rate Greater Than 89 mL/min (>89); Glucose,Random 92 mg/dL (74-106); Magnesium 1.8 mg/dL (1.5-2.5); Potassium 3.6 meq/L (3.5-5.1); Sodium 137 meq/L (136-145)
[2018-07-24] MEDS: niCARdipine Inj 25 MG in Sodium Chlor 0.9% Inj 240 ML IV.CONT PRN (05:15)
[2018-07-24] MEDS ORDERED: Potassium Chlor 20 mEq Premix 20 MEQ/100 ML PIGGYBACK IV.SIG ONE (08:00)
[2018-07-24] MEDS: Senna/Docusate Sodium 8.6/50 MG Tablet PO SCH ×2 (08:03→20:20)
[2018-07-24] MEDS: Sodium Chloride 0.9% 2 ML Flush BID IV.FLUSH SCH ×2 (08:08→20:21)
[2018-07-24] MEDS: Morphine Inj 4 MG/ML Vial IV.PUSH PRN (09:23)
--- NOTE | 2018-07-24 10:11 | P.PN ---
Subjective Interval history: Consulted by critical care medicine for transfer care medical management. Chart reviewed. Patient well-known to me. Discussed with nursing, patient did not receive Nitropaste last night. Early this morning Cardene drip restarted which which has already been discontinued. Complains of usual right-sided headache scale of 5 out of 10 with muscle ache in the right upper quadrant. Denies nausea. Still no BM or gas. Physical Exam Vital signs: Vital Signs 07/23/18 12:00 07/23/18 14:00 07/23/18 16:00 Temperature 97.9 F 97.9 F Pulse Rate 108 H 92 H 102 H Respiratory Rate 26 H 23 Blood Pressure 145/77 H 169/83 H Pulse Oximetry 96 94 L 07/23/18 17:54 07/23/18 18:00 07/23/18 19:58 Temperature Pulse Rate 88 Respiratory Rate 18 Blood Pressure Pulse Oximetry 94 L 07/23/18 20:00 07/23/18 20:07 07/23/18 21:00 Temperature 98.8 F Pulse Rate 90 98 H Respiratory Rate 14 22 Blood Pressure 146/70 H 146/70 H Pulse Oximetry 94 L 93 L 07/23/18 21:07 07/23/18 22:00 07/23/18 22:07 Temperature Pulse Rate 109 H 106 H 109 H Respiratory Rate 20 23 24 Blood Pressure 155/73 H 148/73 H Pulse Oximetry 94 L 95 95 07/23/18 23:00 07/23/18 23:07 07/24/18 00:00 Temperature 99.0 F Pulse Rate 109 H 114 H 97 H Respiratory Rate 29 H 21 19 Blood Pressure 141/74 H 157/77 H Pulse Oximetry 95 95 94 L 07/24/18 00:07 07/24/18 01:00 07/24/18 01:07 Temperature Pulse Rate 95 H 94 H 93 H Respiratory Rate 19 20 21 Blood Pressure 157/77 H 174/84 H Pulse Oximetry 94 L 94 L 95 07/24/18 02:00 07/24/18 02:07 07/24/18 03:00 Temperature Pulse Rate 116 H 102 H 102 H Respiratory Rate 36 H 8 L 25 H Blood Pressure 158/81 H Pulse Oximetry 95 94 L 94 L 07/24/18 03:07 07/24/18 04:00 07/24/18 04:07 Temperature 99.5 F Pulse Rate 94 H 94 H 94 H Respiratory Rate 17 21 19 Blood Pressure 159/80 H 172/84 H 172/84 H Pulse Oximetry 94 L 94 L 94 L 07/24/18 05:00 07/24/18 05:07 07/24/18 05:09 Temperature Pulse Rate 97 H 121 H 107 H Respiratory Rate 20 35 H 31 H Blood Pressure 185/86 H 182/89 H Pulse Oximetry 94 L 96 95 07/24/18 05:30 07/24/18 05:45 07/24/18 06:00 Temperature Pulse Rate 103 H 105 H 105 H Respiratory Rate 19 20 20 Blood Pressure 153/74 H 145/71 H 141/67 H Pulse Oximetry 94 L 93 L 93 L 07/24/18 06:15 07/24/18 06:30 07/24/18 06:45 Temperature Pulse Rate 105 H 105 H 104 H Respiratory Rate 18 19 20 Blood Pressure 144/68 H 140/67 145/70 H Pulse Oximetry 93 L 93 L 94 L 07/24/18 07:00 07/24/18 07:15 07/24/18 07:30 Temperature Pulse Rate 108 H 104 H 105 H Respiratory Rate 19 20 20 Blood Pressure 141/70 H 139/68 142/67 H Pulse Oximetry 93 L 93 L 93 L 07/24/18 07:33 07/24/18 07:45 07/24/18 08:00 Temperature 99.8 F H Pulse Rate 108 H 110 H Respiratory Rate 19 22 Blood Pressure 147/70 H 154/76 H Pulse Oximetry 93 L 93 L 93 L Intake & Output 07/23/18 07/24/18 07/24/18 18:59 06:59 18:59 Intake Total 1105 / 1105 355 / 355 1105 / 1105 Output Total 850 / 850 850 / 850 Balance 255 / 255 -495 / -495 1105 / 1105 Intake: IV 1105 / 1105 355 / 355 1105 / 1105 NS + KCl 20 mEq Inj 1,000 ML @ 1000 / 1000 1000 / 1000 80 mls/hr IV.CONT .[id number] [facility] Rx#:[id number] Cardene Inj 25 MG In NS Inj 240 250 / 250 ML @ 5 MG/HR 50 mls/hr IV.CONT TITRATE PRN Rx#:[id number] Keppra Inj 500 MG In NS Inj 100 105 / 105 105 / 105 105 / 105 ML @ 400 mls/hr IV.SIG Q12H [facility] Rx#:[id number] Output: Urine Amount (Catheter) 850 / 850 850 / 850 Indwelling Urethral Catheter 850 / 850 850 / 850 Gastric Drainage 0 / 0 Left Nare 0 / 0 Other: Date of Last Bowel Movement 07/22/18 07/22/18 Narrative: GENERAL: Well-nourished, well-developed patient lethargic but arouses to voice and follows commands. SKIN: Warm and dry. CARDIOVASCULAR: Regular rate and rhythm. No murmurs rubs or gallops. RESPIRATORY: No accessory muscle use. Clear to auscultation. Breath sounds equal bilaterally. GASTROINTESTINAL: NGT to LIWS, Abdomen soft, mildly distended, nontender with hypoactive bowel sounds. MUSCULOSKELETAL: Extremities without clubbing, cyanosis, or edema. No obvious deformities. NEUROLOGICAL: Awakens to voice and answers questions. 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 - Urinary Catheter Management Straight Cath placed during this visit: yes, but has since been removed by the nurse Reason for continuing: Acute urinary retention Insertion date: 07/18/18 Insertion time: 20:15 Removal date: 07/18/18 Removal time: 13:00 Indwelling Urethral Catheter Cath placed during this visit: no Reason for continuing: Acute urinary retention Results - Labs CBC & Chem 7: 07/24/18 03:16 07/24/18 03:16 Laboratory Results - last 24 hr 07/23/18 07/23/18 07/24/18 13:46 13:46 03:16 WBC 3.5 L 3.0 L RBC 4.83 4.63 Hgb 14.8 14.2 Hct 43.9 42.0 MCV 90.9 90.8 MCH 30.7 30.8 MCHC 33.7 33.9 RDW 13.8 13.9 Plt Count 172 155 MPV 8.8 8.8 Neut % (Auto) 54.0 52.2 Lymph % (Auto) 30.9 26.2 [place] % (Auto) 14.6 H 19.4 H Eos % (Auto) 0.3 1.9 Baso % (Auto) 0.2 0.3 Neut # (Auto) 1.9 1.6 L Lymph # (Auto) 1.1 0.8 L [place] # (Auto) 0.5 0.6 Eos # (Auto) 0.0 0.1 Baso # (Auto) 0.0 0.0 WBC Differential . . Differential Comment Auto diff final Auto diff final Sodium 138 Potassium 3.9 Chloride 104 Carbon Dioxide 25.5 Anion Gap 9 BUN 14 Creatinine 0.78 Estimated GFR Greater than 89 Random Glucose 106 Calcium 8.8 Magnesium Blood Type Blood Type Recheck Antibody Screen 07/24/18 07/24/18 03:16 03:16 WBC RBC Hgb Hct MCV MCH MCHC RDW Plt Count MPV Neut % (Auto) Lymph % (Auto) [place] % (Auto) Eos % (Auto) Baso % (Auto) Neut # (Auto) Lymph # (Auto) [place] # (Auto) Eos # (Auto) Baso # (Auto) WBC Differential Differential Comment Sodium 137 Potassium 3.6 Chloride 102 Carbon Dioxide 27.4 Anion Gap 8 BUN 12 Creatinine 0.76 Estimated GFR Greater than 89 Random Glucose 92 Calcium 8.2 L Magnesium 1.8 Blood Type A Positive Blood Type Recheck Not needed Antibody Screen Negative - Imaging ITS Impressions Abdomen/Pelvis CT 07/17/18 11:38 CONCLUSION: 1. Several loops of marginally distended proximal ileum in the left abdomen with mild fecalization and diffuse bowel wall thickening. Relative transition point in the midabdomen and left upper quadrant with decompressed proximal and distal bowel loops. Overall findings are most consistent with a partial small bowel obstruction likely secondary to adhesions. Findings are new since 2016 although the fecalization suggests a somewhat subacute etiology. No evidence for bowel infarction or perforation. 2. 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 3. Stable additional ancillary findings, as above. Abdomen X-Ray 07/19/18 06:00 CONCLUSION: 1. Stable NGT in the stomach. 2. Improved small bowel distention consistent with resolving partial small bowel obstruction. Small Bowel X-Ray 07/20/18 00:00 CONCLUSION: There is no current small bowel obstruction. There is delayed passage of contrast through small bowel. Head CTA 07/21/18 15:00 CONCLUSION: 1. Negative CTA Head. Neck CTA 07/21/18 15:25 CONCLUSION: 1. Mild to moderate atherosclerosis without hemodynamically significant carotid stenosis. Streak artifact from cervical fusion obscures portion of left common carotid artery. NG tube is present. Right vertebral artery is dominant. Head CT 07/22/18 00:00 CONCLUSION: No significant change. . Chest X-Ray 07/22/18 05:00 CONCLUSION: Right base mild atelectasis or consolidation. Assessment and Plan - Assessment (1) Small bowel obstruction Code(s): K56.609 - Unspecified intestinal obstruction, unspecified as to partial versus complete obstruction Status: Acute - Plan 72-year-old male with: ICH secondary to hypertension Hypertensive emergency. Resolved SBO CAD Bradycardia with junctional escape rhythm WCT Hyperlipidemia Urinary retention hx BPH Plan: Neuro: Neuro checks per protocol. CTA brain with no aneurysm. Repeat head CT done 07/22 showed stable basal ganglia bleed. Neurosurgery consulted. Nonsurgical at this time. Maintain SBP <160, off cardene drip. Discontinue NTP secondary to headache. Start clonidine patch with Vasotec and Hydralazine prn. Cardiovascular: IV hydration 80/hr. On hydralazine as needed. Lopressor held on admission due to bradycardia, cardiology following. 2D echo with normal LV function Pulmonary: Supplemental O2 as needed, bronchodilators as needed. GI/liver: N.p.o., NG tube to low intermittent wall suction. General surgery following. Discussed with Dr. Mace , patient is appropriate for laparoscopy whenever general surgery wishes to proceed. Consult dietitian for TPN Renal/: IV hydration, strict intake output, monitor and replete electrolytes, follow BUN/creatinine. Continue Flomax if tolerated. Mariee care, Mariee catheter removal protocol ID: No indication for antibiotics at this time. Endocrine: Watch for hyperglycemia, SSI for glycemic control if needed. Prophylaxis: PPI/SCDs. No subcu heparin or Lovenox in view of ICH PT, increase activity as tolerated FULL CODE Stable to [facility] Discharge Planning: When cleared by GS and clinically improved
[2018-07-24] MEDS: Morphine Sulfate Inj 2 MG/ML Vial IV.PUSH PRN ×3 (13:51→22:07)
--- NOTE | 2018-07-24 14:22 | P.PNGS ---
Subjective Patient reports: no flatus (no acute issues), no bowel movement Physical Exam Vital signs: Vital Signs 07/23/18 16:00 07/23/18 17:54 07/23/18 18:00 Temperature 97.9 F Pulse Rate 102 H 88 Respiratory Rate 23 18 Blood Pressure 169/83 H Pulse Oximetry 94 L 07/23/18 19:58 07/23/18 20:00 07/23/18 20:07 Temperature 98.8 F Pulse Rate 90 Respiratory Rate 14 Blood Pressure 146/70 H 146/70 H Pulse Oximetry 94 L 94 L 07/23/18 21:00 07/23/18 21:07 07/23/18 22:00 Temperature Pulse Rate 98 H 109 H 106 H Respiratory Rate 22 20 23 Blood Pressure 155/73 H Pulse Oximetry 93 L 94 L 95 07/23/18 22:07 07/23/18 23:00 07/23/18 23:07 Temperature Pulse Rate 109 H 109 H 114 H Respiratory Rate 24 29 H 21 Blood Pressure 148/73 H 141/74 H Pulse Oximetry 95 95 95 07/23/18 23:30 07/23/18 23:45 07/24/18 00:00 Temperature 99.0 F Pulse Rate 98 H 96 H 97 H Respiratory Rate 28 H 20 19 Blood Pressure 157/77 H Pulse Oximetry 95 94 L 94 L 07/24/18 00:07 07/24/18 00:15 07/24/18 00:30 Temperature Pulse Rate 95 H 95 H 96 H Respiratory Rate 19 19 19 Blood Pressure 157/77 H Pulse Oximetry 94 L 94 L 94 L 07/24/18 00:45 07/24/18 01:00 07/24/18 01:07 Temperature Pulse Rate 96 H 94 H 93 H Respiratory Rate 19 20 21 Blood Pressure 174/84 H Pulse Oximetry 94 L 94 L 95 07/24/18 01:15 07/24/18 01:30 07/24/18 01:45 Temperature Pulse Rate 97 H 96 H 95 H Respiratory Rate 19 20 20 Blood Pressure Pulse Oximetry 94 L 94 L 95 07/24/18 02:00 07/24/18 02:07 07/24/18 02:15 Temperature Pulse Rate 116 H 102 H 101 H Respiratory Rate 36 H 8 L 12 Blood Pressure 158/81 H Pulse Oximetry 95 94 L 95 07/24/18 02:30 07/24/18 02:45 07/24/18 03:00 Temperature Pulse Rate 100 H 95 H 102 H Respiratory Rate 32 H 18 25 H Blood Pressure Pulse Oximetry 94 L 94 L 94 L 07/24/18 03:07 07/24/18 03:15 07/24/18 03:30 Temperature Pulse Rate 94 H 96 H 94 H Respiratory Rate 17 19 19 Blood Pressure 159/80 H Pulse Oximetry 94 L 94 L 94 L 07/24/18 03:45 07/24/18 04:00 07/24/18 04:07 Temperature 99.5 F Pulse Rate 94 H 94 H 94 H Respiratory Rate 23 21 19 Blood Pressure 172/84 H 172/84 H Pulse Oximetry 94 L 94 L 94 L 07/24/18 04:15 07/24/18 04:30 07/24/18 04:45 Temperature Pulse Rate 94 H 93 H 103 H Respiratory Rate 20 19 27 H Blood Pressure Pulse Oximetry 94 L 94 L 95 07/24/18 05:00 07/24/18 05:07 07/24/18 05:09 Temperature Pulse Rate 97 H 121 H 107 H Respiratory Rate 20 35 H 31 H Blood Pressure 185/86 H 182/89 H Pulse Oximetry 94 L 96 95 07/24/18 05:15 07/24/18 05:30 07/24/18 05:45 Temperature Pulse Rate 102 H 103 H 105 H Respiratory Rate 25 H 19 20 Blood Pressure 153/74 H 145/71 H Pulse Oximetry 95 94 L 93 L 07/24/18 06:00 07/24/18 06:15 07/24/18 06:30 Temperature Pulse Rate 105 H 105 H 105 H Respiratory Rate 20 18 19 Blood Pressure 141/67 H 144/68 H 140/67 Pulse Oximetry 93 L 93 L 93 L 07/24/18 06:45 07/24/18 07:00 07/24/18 07:15 Temperature Pulse Rate 104 H 108 H 104 H Respiratory Rate 20 19 20 Blood Pressure 145/70 H 141/70 H 139/68 Pulse Oximetry 94 L 93 L 93 L 07/24/18 07:30 07/24/18 07:33 07/24/18 07:45 Temperature Pulse Rate 105 H 108 H Respiratory Rate 20 19 Blood Pressure 142/67 H 147/70 H Pulse Oximetry 93 L 93 L 93 L 07/24/18 08:00 07/24/18 08:15 07/24/18 08:30 Temperature 99.8 F H Pulse Rate 108 H 117 H 99 H Respiratory Rate 21 31 H 19 Blood Pressure 154/76 H 148/81 H 150/80 H Pulse Oximetry 93 L 93 L 94 L 07/24/18 08:45 07/24/18 09:00 07/24/18 09:15 Temperature Pulse Rate 97 H 100 H 99 H Respiratory Rate 13 22 11 L Blood Pressure 158/83 H 165/91 H 159/80 H Pulse Oximetry 94 L 94 L 95 07/24/18 09:30 07/24/18 09:45 07/24/18 10:00 Temperature Pulse Rate 98 H 101 H 101 H Respiratory Rate 21 22 22 Blood Pressure 142/70 H 149/70 H 151/70 H Pulse Oximetry 93 L 94 L 94 L 07/24/18 10:15 07/24/18 10:30 07/24/18 10:45 Temperature Pulse Rate 98 H 98 H 99 H Respiratory Rate 22 24 23 Blood Pressure 161/79 H 156/78 H 158/78 H Pulse Oximetry 94 L 94 L 95 07/24/18 11:00 07/24/18 11:15 07/24/18 11:30 Temperature Pulse Rate 100 H 105 H 99 H Respiratory Rate 22 24 22 Blood Pressure 166/83 H 146/69 H 144/69 H Pulse Oximetry 95 95 94 L 07/24/18 11:45 07/24/18 12:00 07/24/18 13:55 Temperature 98.6 F Pulse Rate 100 H 94 H Respiratory Rate 17 20 20 Blood Pressure 146/81 H 134/74 Pulse Oximetry 94 L 94 L Intake & Output 07/23/18 07/24/18 07/24/18 18:59 06:59 18:59 Intake Total 1105 / 1105 355 / 355 1205 / 1205 Output Total 850 / 850 850 / 850 Balance 255 / 255 -495 / -495 1205 / 1205 Intake: IV 1105 / 1105 355 / 355 1205 / 1205 NS + KCl 20 mEq Inj 1,000 ML @ 1000 / 1000 1000 / 1000 80 mls/hr IV.CONT .[id number] [facility] Rx#:[id number] Cardene Inj 25 MG In NS Inj 240 250 / 250 ML @ 5 MG/HR 50 mls/hr IV.CONT TITRATE PRN Rx#:[id number] KCl 20 mEq Premix Inj 20 meq In 100 / 100 100 ml @ 50 mls/hr IV.SIG ONCE ONE Rx#:[id number] Keppra Inj 500 MG In NS Inj 100 105 / 105 105 / 105 105 / 105 ML @ 400 mls/hr IV.SIG Q12H [facility] Rx#:[id number] Output: Urine Amount (Catheter) 850 / 850 850 / 850 Indwelling Urethral Catheter 850 / 850 850 / 850 Gastric Drainage 0 / 0 Left Nare 0 / 0 Other: Date of Last Bowel Movement 07/22/18 07/22/18 07/22/18 - Routine Abdominal Exam Present: soft (+ttp mild diffuse) - Urinary Catheter Management Straight Cath placed during this visit: yes, but has since been removed by the nurse Reason for continuing: Acute urinary retention Insertion date: 07/18/18 Insertion time: 20:15 Removal date: 07/18/18 Removal time: 13:00 Indwelling Urethral Catheter Cath placed during this visit: no Reason for continuing: Acute urinary retention Results - Labs 07/24/18 03:16 07/24/18 03:16 Laboratory Results - last 24 hr 07/23/18 07/23/18 07/24/18 13:46 13:46 03:16 WBC 3.5 L 3.0 L RBC 4.83 4.63 Hgb 14.8 14.2 Hct 43.9 42.0 MCV 90.9 90.8 MCH 30.7 30.8 MCHC 33.7 33.9 RDW 13.8 13.9 Plt Count 172 155 MPV 8.8 8.8 Neut % (Auto) 54.0 52.2 Lymph % (Auto) 30.9 26.2 [place] % (Auto) 14.6 H 19.4 H Eos % (Auto) 0.3 1.9 Baso % (Auto) 0.2 0.3 Neut # (Auto) 1.9 1.6 L Lymph # (Auto) 1.1 0.8 L [place] # (Auto) 0.5 0.6 Eos # (Auto) 0.0 0.1 Baso # (Auto) 0.0 0.0 WBC Differential . . Differential Comment Auto diff final Auto diff final Sodium 138 Potassium 3.9 Chloride 104 Carbon Dioxide 25.5 Anion Gap 9 BUN 14 Creatinine 0.78 Estimated GFR Greater than 89 Random Glucose 106 Calcium 8.8 Magnesium Blood Type Blood Type Recheck Antibody Screen 07/24/18 07/24/18 03:16 03:16 WBC RBC Hgb Hct MCV MCH MCHC RDW Plt Count MPV Neut % (Auto) Lymph % (Auto) [place] % (Auto) Eos % (Auto) Baso % (Auto) Neut # (Auto) Lymph # (Auto) [place] # (Auto) Eos # (Auto) Baso # (Auto) WBC Differential Differential Comment Sodium 137 Potassium 3.6 Chloride 102 Carbon Dioxide 27.4 Anion Gap 8 BUN 12 Creatinine 0.76 Estimated GFR Greater than 89 Random Glucose 92 Calcium 8.2 L Magnesium 1.8 Blood Type A Positive Blood Type Recheck Not needed Antibody Screen Negative - Imaging Imaging: ITS Impressions Abdomen/Pelvis CT 07/17/18 11:38 CONCLUSION: 1. Several loops of marginally distended proximal ileum in the left abdomen with mild fecalization and diffuse bowel wall thickening. Relative transition point in the midabdomen and left upper quadrant with decompressed proximal and distal bowel loops. Overall findings are most consistent with a partial small bowel obstruction likely secondary to adhesions. Findings are new since 2016 although the fecalization suggests a somewhat subacute etiology. No evidence for bowel infarction or perforation. 2. 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 3. Stable additional ancillary findings, as above. Abdomen X-Ray 07/19/18 06:00 CONCLUSION: 1. Stable NGT in the stomach. 2. Improved small bowel distention consistent with resolving partial small bowel obstruction. Small Bowel X-Ray 07/20/18 00:00 CONCLUSION: There is no current small bowel obstruction. There is delayed passage of contrast through small bowel. Head CTA 07/21/18 15:00 CONCLUSION: 1. Negative CTA Head. Neck CTA 07/21/18 15:25 CONCLUSION: 1. Mild to moderate atherosclerosis without hemodynamically significant carotid stenosis. Streak artifact from cervical fusion obscures portion of left common carotid artery. NG tube is present. Right vertebral artery is dominant. Head CT 07/22/18 00:00 CONCLUSION: No significant change. . Chest X-Ray 07/22/18 05:00 CONCLUSION: Right base mild atelectasis or consolidation. Assessment and Plan - Assessment (1) Small bowel obstruction Code(s): K56.609 - Unspecified intestinal obstruction, unspecified as to partial versus complete obstruction Status: Acute Plan: 72 year old male with SBO, no bowel fxn yet -SBFT shows no definitive obstruction, may still open up with time - npo ng tube agree with tpn possible OR this week
--- NOTE | 2018-07-24 15:35 | P.DIET ---
Nutritional Evaluation Type of nutrition evaluation: initial Nutrition consult regarding: TPN/PPN Nutrition screening: [facility] Objective - Diagnosis Small Bowel Obstruction - Objective [place] body weight: 73 kg % IBW: 115 Body Weight Used for Calculations: Upper end of IBW (80kg) Energy Needs - Lower Range (kCal/kg): 25 Energy Needs - Upper Range (kCal/kg): 30 Lower Limit kCal/kg (kCals): 2,000 Upper Limit kCal/kg (kCals): 2,400 Lower Limit Protein Factor (Grams per Kg): 1.1 Upper Limit Protein Factor (Grams per Kg): 1.3 Lower Protein Needs (Protein): 88 Upper Protein Needs (Protein): 104 Dietitian Reviewed in Medical Record: Curent medications, Intake & Output, Labs , Medical history Diet Order: NPO Objective Comments: Labs include: Triglycerides 76 Assessment Assessment: Pt at nutritional risk r/t dx and need for TPN/PPN for nutrition support. Pt with SBO. His nutritional needs as assessed above. To meet pt's nutritional needs with PPN: Clinimix E 4.25/5 at rate of 85ml/hr, 20% lipids to run continuously with Clinimix at 10ml/hr providing 1194kcals and 87gms protein. This provides 100 % of pt's protein needs and 60% of pt's kcal needs. To meet pt's nutritional needs with TPN: Clinimix E 5/20 at rate of 85ml/hr, 20% lipids to run continuously with Clinimix at 10ml/hr providing 2295kcals and 102gms protein with a GUR of 3.4mg/ kg/min. Noted baseline triglyceride level, recommend monitor weekly Will monitor clinical course. Recommendations: 1. To meet pt's nutritional needs with PPN: Clinimix E 4.25/5 at rate of 85ml/hr, 20% lipids to run continuously with Clinimix E at 10ml/hr 2. To meet pt's nutritional needs with TPN: Clinimix E 5/20 at rate of 85ml/hr, 20% lipids to run continuously with Clinimix E at 10ml/hr 3. Monitor triglyceride level Dietitian to Monitor: Lab values, Intake & Output, TPN/PPN tolerance, Medical course
[2018-07-24] MEDS: Pantoprazole Inj 40 MG Vial IV.PUSH SCH (17:24)
[2018-07-25] MEDS: Morphine Sulfate Inj 2 MG/ML Vial IV.PUSH PRN ×5 (01:52→18:52)
[2018-07-25] MEDS: hydrALAZINE HCl Inj 20 MG/ML Vial IV.PUSH PRN ×4 (06:03→23:20)
--- NOTE | 2018-07-25 09:08 | P.PN ---
Subjective Interval history: Follow-up SBO, intracranial hemorrhage and hypertensive emergency. Complaining of headache and stiff neck and back. No nausea. He wants to eat. Discussed with nursing, eliseo TRUONG on the Physical Exam Vital signs: Vital Signs 07/24/18 09:15 07/24/18 09:30 07/24/18 09:45 Temperature Pulse Rate 99 H 98 H 101 H Respiratory Rate 11 L 21 22 Blood Pressure 159/80 H 142/70 H 149/70 H Pulse Oximetry 95 93 L 94 L 07/24/18 10:00 07/24/18 10:15 07/24/18 10:30 Temperature Pulse Rate 101 H 98 H 98 H Respiratory Rate 22 22 24 Blood Pressure 151/70 H 161/79 H 156/78 H Pulse Oximetry 94 L 94 L 94 L 07/24/18 10:45 07/24/18 11:00 07/24/18 11:15 Temperature Pulse Rate 99 H 100 H 105 H Respiratory Rate 23 22 24 Blood Pressure 158/78 H 166/83 H 146/69 H Pulse Oximetry 95 95 95 07/24/18 11:30 07/24/18 11:45 07/24/18 12:00 Temperature 98.6 F Pulse Rate 99 H 100 H 94 H Respiratory Rate 22 17 20 Blood Pressure 144/69 H 146/81 H 134/74 Pulse Oximetry 94 L 94 L 94 L 07/24/18 13:55 07/24/18 14:00 07/24/18 16:00 Temperature 98.5 F Pulse Rate 97 H 100 H Respiratory Rate 20 18 Blood Pressure 170/82 H Pulse Oximetry 94 L 07/24/18 18:00 07/24/18 20:00 07/24/18 22:00 Temperature 98.9 F Pulse Rate 92 H 104 H 91 H Respiratory Rate 22 Blood Pressure 161/72 H Pulse Oximetry 96 07/24/18 22:09 07/25/18 00:00 07/25/18 01:54 Temperature 98.4 F Pulse Rate 93 H Respiratory Rate 16 16 14 Blood Pressure 157/95 H Pulse Oximetry 96 07/25/18 02:00 07/25/18 04:00 07/25/18 06:00 Temperature 98.6 F Pulse Rate 96 H 100 H 91 H Respiratory Rate 20 Blood Pressure 156/78 H Pulse Oximetry 96 07/25/18 07:47 Temperature Pulse Rate Respiratory Rate Blood Pressure Pulse Oximetry 96 Intake & Output 07/24/18 07/25/18 07/25/18 18:59 06:59 18:59 Intake Total 1205 / 1205 1205 / 1205 105 / 105 Output Total 600 / 600 900 / 900 Balance 605 / 605 305 / 305 105 / 105 Weight 83.4 kg Intake: IV 1205 / 1205 1205 / 1205 105 / 105 NS + KCl 20 mEq Inj 1,000 ML @ 1000 / 1000 1100 / 1100 80 mls/hr IV.CONT .[id number] [facility] Rx#:[id number] KCl 20 mEq Premix Inj 20 meq In 100 / 100 100 ml @ 50 mls/hr IV.SIG ONCE ONE Rx#:[id number] Keppra Inj 500 MG In NS Inj 100 105 / 105 105 / 105 105 / 105 ML @ 400 mls/hr IV.SIG Q12H [facility] Rx#:[id number] Output: Urine 900 / 900 Urine Amount (Catheter) 600 / 600 Indwelling Urethral Catheter 600 / 600 Other: # Voids 3 Date of Last Bowel Movement 07/22/18 07/22/18 # Bowel Movements 0 Narrative: GENERAL: Well-nourished, well-developed patient lethargic but arouses to voice and follows commands. SKIN: Warm and dry. CARDIOVASCULAR: Regular rate and rhythm. No murmurs rubs or gallops. RESPIRATORY: No accessory muscle use. Clear to auscultation. Breath sounds equal bilaterally. GASTROINTESTINAL: NGT to LIWS, Abdomen soft, mildly distended, nontender with hypoactive bowel sounds. MUSCULOSKELETAL: Extremities without clubbing, cyanosis, or edema. No obvious deformities. NEUROLOGICAL: Awakens to voice and answers questions. 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 Several loops of marginally distended proximal ileum in the left abdomen with mild fecalization and diffuse bowel wall thickening. Relative transition point in the midabdomen and left upper quadrant with decompressed proximal and distal bowel loops. Overall findings are most consistent with a partial small bowel obstruction likely secondary to adhesions. Findings are new since 2016 although the fecalization suggests a somewhat subacute etiology. No evidence for bowel infarction or perforation. 2. 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 3. Stable additional ancillary findings, as above. Abdomen X-Ray 07/19/18 06:00 CONCLUSION: 1. Stable NGT in the stomach. 2. Improved small bowel distention consistent with resolving partial small bowel obstruction. Small Bowel X-Ray 07/20/18 00:00 CONCLUSION: There is no current small bowel obstruction. There is delayed passage of contrast through small bowel. Head CTA 07/21/18 15:00 CONCLUSION: 1. Negative CTA Head. Neck CTA 07/21/18 15:25 CONCLUSION: 1. Mild to moderate atherosclerosis without hemodynamically significant carotid stenosis. Streak artifact from cervical fusion obscures portion of left common carotid artery. NG tube is present. Right vertebral artery is dominant. Head CT 07/22/18 00:00 CONCLUSION: No significant change. . Chest X-Ray 07/22/18 05:00 CONCLUSION: Right base mild atelectasis or consolidation. - Procedures none Assessment and Plan - Assessment (1) Small bowel obstruction Code(s): K56.609 - Unspecified intestinal obstruction, unspecified as to partial versus complete obstruction Status: Acute - Plan 72-year-old male with: ICH secondary to hypertension. Stable Hypertensive emergency. Resolved SBO. Not progressing may need surgery CAD. Stable Bradycardia with junctional escape rhythm. Stable WCT. Stable Hyperlipidemia. Stable Urinary retention hx BPH. Resolved Plan: Neuro: Neuro checks per protocol. CTA brain with no aneurysm. Repeat head CT done 07/22 showed stable basal ganglia bleed. Neurosurgery consulted. Nonsurgical at this time. Continue IV Keppra for prophylaxis for total of 7 days DC date July 29 Maintain SBP <160, off cardene drip. Discontinue NTP secondary to headache. Tolerating clonidine patch with Vasotec and Hydralazine prn. Cardiovascular: On hydralazine as needed. Lopressor held on admission due to bradycardia, cardiology following. 2D echo with normal LV function Pulmonary: Supplemental O2 as needed, bronchodilators as needed. GI/liver: N.p.o., NG tube to low intermittent wall suction. General surgery following. Discussed with Dr. Mace , patient is appropriate for laparoscopy whenever general surgery wishes to proceed. Consult dietitian for TPN Renal/: PPN, strict intake output, monitor and replete electrolytes, follow BUN/creatinine. Continue Flomax if tolerated. Mariee removed, has condom cath ID: No indication for antibiotics at this time. Endocrine: Watch for hyperglycemia, SSI for glycemic control if needed. FEN. PPN prophylaxis: PPI/SCDs. No subcu heparin or Lovenox in view of ICH PT, increase activity as tolerated FULL CODE Stable to [facility]
[2018-07-25] MEDS: Sodium Chloride 0.9% 2 ML Flush BID IV.FLUSH SCH ×2 (09:19→20:26)
[2018-07-25] MEDS: Senna/Docusate Sodium 8.6/50 MG Tablet PO SCH ×2 (09:19→20:26)
--- NOTE | 2018-07-25 10:55 | P.PNNS ---
Subjective Interval history: 72yoM admitted to medicine for GI workup with known HTN, elevated BP last two days. Had a severe headache today and a head CT was obtained showing right basal ganglia hemorrhage ~10:30AM. CTA taken this afternoon shows stable hemorrhage, and no aneurysmal source. Patient has remained neurologically intact throughout though somewhat sleepier and by report weaker in the left arm. 07/25. he feels better. No new problems overnight Physical Exam Vital signs: Vital Signs 07/24/18 11:00 07/24/18 11:15 07/24/18 11:30 Temperature Pulse Rate 100 H 105 H 99 H Respiratory Rate 22 24 22 Blood Pressure 166/83 H 146/69 H 144/69 H Pulse Oximetry 95 95 94 L 07/24/18 11:45 07/24/18 12:00 07/24/18 13:55 Temperature 98.6 F Pulse Rate 100 H 94 H Respiratory Rate 17 20 20 Blood Pressure 146/81 H 134/74 Pulse Oximetry 94 L 94 L 07/24/18 14:00 07/24/18 16:00 07/24/18 18:00 Temperature 98.5 F Pulse Rate 97 H 100 H 92 H Respiratory Rate 18 Blood Pressure 170/82 H Pulse Oximetry 94 L 07/24/18 20:00 07/24/18 22:00 07/24/18 22:09 Temperature 98.9 F Pulse Rate 104 H 91 H Respiratory Rate 22 16 Blood Pressure 161/72 H Pulse Oximetry 96 07/25/18 00:00 07/25/18 01:54 07/25/18 02:00 Temperature 98.4 F Pulse Rate 93 H 96 H Respiratory Rate 16 14 Blood Pressure 157/95 H Pulse Oximetry 96 07/25/18 04:00 07/25/18 06:00 07/25/18 07:47 Temperature 98.6 F Pulse Rate 100 H 91 H Respiratory Rate 20 Blood Pressure 156/78 H Pulse Oximetry 96 96 07/25/18 08:00 07/25/18 09:43 Temperature Pulse Rate 87 Respiratory Rate 24 Blood Pressure Pulse Oximetry 95 Intake & Output 07/24/18 07/25/18 07/25/18 18:59 06:59 18:59 Intake Total 1205 / 1205 1205 / 1205 105 / 105 Output Total 600 / 600 900 / 900 Balance 605 / 605 305 / 305 105 / 105 Weight 83.4 kg Intake: IV 1205 / 1205 1205 / 1205 105 / 105 NS + KCl 20 mEq Inj 1,000 ML @ 1000 / 1000 1100 / 1100 80 mls/hr IV.CONT .[id number] [facility] Rx#:[id number] KCl 20 mEq Premix Inj 20 meq In 100 / 100 100 ml @ 50 mls/hr IV.SIG ONCE ONE Rx#:[id number] Keppra Inj 500 MG In NS Inj 100 105 / 105 105 / 105 105 / 105 ML @ 400 mls/hr IV.SIG Q12H [facility] Rx#:[id number] Output: Urine 900 / 900 Urine Amount (Catheter) 600 / 600 Indwelling Urethral Catheter 600 / 600 Other: # Voids 3 Date of Last Bowel Movement 07/22/18 07/22/18 07/22/18 # Bowel Movements 0 Narrative: GENERAL: Well-nourished, well-developed patient lethargic but arouses to voice and follows commands. SKIN: Warm and dry. CARDIOVASCULAR: Regular rate and rhythm. No murmurs rubs or gallops. RESPIRATORY: No accessory muscle use. Clear to auscultation. Breath sounds equal bilaterally. GASTROINTESTINAL: NGT to LIWS, Abdomen soft, mildly distended, nontender with hypoactive bowel sounds. MUSCULOSKELETAL: Extremities without clubbing, cyanosis, or edema. No obvious deformities. NEUROLOGICAL: Awakens to voice and answers questions. 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 - Urinary Catheter Management Straight Cath placed during this visit: yes, but has since been removed by the nurse Reason for continuing: Acute urinary retention Insertion date: 07/18/18 Insertion time: 20:15 Removal date: 07/18/18 Removal time: 13:00 Indwelling Urethral Catheter Cath placed during this visit: yes, but has since been removed by the nurse Reason for continuing: Acute urinary retention Removal date: 07/24/18 Removal time: 15:45 Assessment and Plan - Plan 72yoM with likely hypertensive basal ganglia hemorrhage I have reviewed the clinical and radiological findings Abdomen/Pelvis CT 07/17/18 11:38 CONCLUSION: 1. Several loops of marginally distended proximal ileum in the left abdomen with mild fecalization and diffuse bowel wall thickening. Relative transition point in the midabdomen and left upper quadrant with decompressed proximal and distal bowel loops. Overall findings are most consistent with a partial small bowel obstruction likely secondary to adhesions. Findings are new since 2016 although the fecalization suggests a somewhat subacute etiology. No evidence for bowel infarction or perforation. 2. 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 3. Stable additional ancillary findings, as above. Abdomen X-Ray 07/19/18 06:00 CONCLUSION: 1. Stable NGT in the stomach. 2. Improved small bowel distention consistent with resolving partial small bowel obstruction. Small Bowel X-Ray 07/20/18 00:00 CONCLUSION: There is no current small bowel obstruction. There is delayed passage of contrast through small bowel. Head CTA 07/21/18 15:00 CONCLUSION: 1. Negative CTA Head. Neck CTA 07/21/18 15:25 CONCLUSION: 1. Mild to moderate atherosclerosis without hemodynamically significant carotid stenosis. Streak artifact from cervical fusion obscures portion of left common carotid artery. NG tube is present. Right vertebral artery is dominant. Head CT 07/22/18 00:00 CONCLUSION: No significant change. . Chest X-Ray 07/22/18 05:00 CONCLUSION: Right base mild atelectasis or consolidation. Neuro: Continue neuro checks in a serial fashion. CTs have been stable. Continue nonoperative treatment Continue Keppra x 1 wk. Bowel obstruction. Cleared to proceed with surgery procedure next week for small bowell obstruction Pulmonary: aggressive pulmonary toilette, nasotracheal suction, and breathing treatments with nebulizers. Daily PT and OT Renal: Continue to monitor closely urine output, BUN and creatinine Endocrine: Continue to Monitor serial Acu checks and SSI as needed in detail ID continue to monitor for signs of infection Continue Protonix for stress ulcer prophylaxis Continue Lane hose and SCD's for DVT prophylaxis Further recommendations will be provided depending on the patient's clinical evaluation and follow up studies.
--- NOTE | 2018-07-25 18:19 | CT ---
EXAM DATE: 07/25/2018 5:17 PM EDT AGE/SEX: 72 years / Male INDICATIONS: Follow up intracerebral hemorrhage. CLINICAL DATA: This is the patient's subsequent encounter. Patient reports that signs and symptoms h ave been present for 1 week and indicates a pain score of 4/10. MEDICAL/SURGICAL HISTORY: Gastroesophageal reflux disease. Hypertension. . Cervical spine surgery, triple vessel bypass. RADIATION DOSE: 40.37 CTDI (mGy) [place] [facility] [place]. . TECHNIQUE: CT of the head without contrast. Using automated exposure control and adjustment of the mA and/or kV according to patient size, radiation dose was kept as low as reasonably achievable to ob tain optimal diagnostic quality images. DICOM format image data is available electronically for revi ew and comparison. FINDINGS: Cerebrum: A 2.5 cm parenchymal hemorrhage is seen in the medial aspect of the right temporal lobe wi th surrounding edema. Findings are stable. No new hemorrhages. Periventricular areas of diminished at tenuation are characteristic of moderately severe small vessel ischemic demyelination. Posterior Fossa: The cerebellum and brainstem are intact. The 4th ventricle is midline. The cerebe llopontine angle is unremarkable. Extracranial: The visualized portion of the orbits is intact. Skull: The calvaria is intact. No evidence of skull fracture. CONCLUSION: 1. Stable examination with a 2.5 cm parenchymal hemorrhage in the medial aspect of the right tempora l lobe. Surrounding edema but no midline shift. 2. Stable periventricular small vessel ischemic demyelination. . Electronically signed by: Kenney Munguia MD 07/25/2018 6:17 PM EDT
[2018-07-25] MEDS: Pantoprazole Inj 40 MG Vial IV.PUSH SCH (18:52)
[2018-07-25] MEDS ORDERED: Morphine Inj 4 MG/ML Vial IV.PUSH PRN (19:45)
[2018-07-25] MEDS: oxyCODONE/Acetaminophen 10/325 Tablet PO PRN (21:56)
[2018-07-25] MEDS: Morphine Inj 4 MG/ML Vial IV.PUSH PRN (22:30)
[2018-07-26] MEDS: Morphine Inj 4 MG/ML Vial IV.PUSH PRN ×5 (02:56→23:20)
[2018-07-26] MEDS: hydrALAZINE HCl Inj 20 MG/ML Vial IV.PUSH PRN (05:12)
[2018-07-26] MEDS: niCARdipine Inj 25 MG in Sodium Chlor 0.9% Inj 240 ML IV.CONT PRN ×3 (05:54→16:26)
--- NOTE | 2018-07-26 08:15 | P.PN ---
Subjective Interval history: Patient with Small bowel obstruction, Intracranial Hemorrhage and Hypertensive Emergency, 07/26: Seen in his bedroom in the presence of his and Nurse, He wants to eat, but not passing gas, no BM yet, seen by General Surgery Doctor Dalila, not found definitive Obstruction on SBFT and pain resolved, Minimal NG output, will clamp NG and give trials of clears. Physical Exam Vital signs: Vital Signs 07/25/18 09:43 07/25/18 10:00 07/25/18 12:00 Temperature 98.6 F Pulse Rate 92 H 92 H Respiratory Rate 24 26 H Blood Pressure 158/83 H Pulse Oximetry 96 07/25/18 13:07 07/25/18 14:00 07/25/18 15:54 Temperature Pulse Rate 106 H Respiratory Rate 16 16 Blood Pressure Pulse Oximetry 07/25/18 16:00 07/25/18 18:00 07/25/18 20:00 Temperature 98.6 F 98.8 F Pulse Rate 92 H 92 H 88 Respiratory Rate 21 24 Blood Pressure 150/80 H 143/71 H Pulse Oximetry 95 94 L 07/25/18 22:00 07/25/18 22:29 07/25/18 22:42 Temperature Pulse Rate 96 H Respiratory Rate 24 Blood Pressure Pulse Oximetry 94 L 07/26/18 00:00 07/26/18 02:00 07/26/18 04:00 Temperature 98.5 F 98.8 F Pulse Rate 94 H 94 H 98 H Respiratory Rate 20 22 Blood Pressure 158/75 H 204/91 H Pulse Oximetry 95 95 07/26/18 06:00 07/26/18 07:36 Temperature Pulse Rate 92 H Respiratory Rate Blood Pressure Pulse Oximetry 96 Intake & Output 07/25/18 07/26/18 07/26/18 18:59 06:59 18:59 Intake Total 805 / 805 3500.2 / 3500.2 Output Total 750 / 750 1500 / 1500 Balance 55 / 55 2000.2 / 1999.2 Weight 88.6 kg Intake: IV 805 / 805 3470.2 / 3470.2 NS + KCl 20 mEq Inj 1,000 ML @ 700 / 700 1000 / 1000 80 mls/hr IV.CONT .[id number] [facility] Rx#:[id number] Cardene Inj 25 MG In NS Inj 240 0 / 0 ML @ 5 MG/HR 50 mls/hr IV.CONT TITRATE PRN Rx#:[id number] Intralipid 20% Inj 250 ML @ 10 250 / 250 mls/hr IV.SIG Q24H [facility] Rx#: [id number] MVI-12 Inj 10 ML Folvite Inj 1 2009.2 / 2009.2 MG In Clinimix E 4.25%/D5W Inj 2,000 ML @ 83 mls/hr IV.SIG Q24H [facility] Rx#:[id number] Keppra Inj 500 MG In NS Inj 100 105 / 105 210 / 210 ML @ 400 mls/hr IV.SIG Q12H [facility] Rx#:[id number] Oral 30 / 30 Output: Urine 750 / 750 1500 / 1500 Other: Date of Last Bowel Movement 07/22/18 07/22/18 # Bowel Movements 0 Narrative: GENERAL: Well-nourished, Well developed, no acute distress. NG tube clamped. SKIN: Warm and dry. CARDIOVASCULAR: Regular rate and rhythm. No murmurs rubs or gallops. RESPIRATORY: No accessory muscle use. Clear to auscultation. Breath sounds equal bilaterally. GASTROINTESTINAL: soft, non tender but moderate distention. MUSCULOSKELETAL: Extremities without clubbing, cyanosis, has edema on both hands. NEUROLOGICAL: no focal deficits. alert and oriented x 3. - Urinary Catheter Management Straight Cath placed during this visit: yes, but has since been removed by the nurse Reason for continuing: Acute urinary retention Insertion date: 07/18/18 Insertion time: 20:15 Removal date: 07/18/18 Removal time: 13:00 Indwelling Urethral Catheter Cath placed during this visit: yes, but has since been removed by the nurse Reason for continuing: Acute urinary retention Removal date: 07/24/18 Removal time: 15:45 Results - Labs CBC & Chem 7: 07/24/18 03:16 07/24/18 03:16 - Imaging Head CT 07/25/18 17:03 CONCLUSION: 1. Stable examination with a 2.5 cm parenchymal hemorrhage in the medial aspect of the right temporal lobe. Surrounding edema but no midline shift. 2. Stable periventricular small vessel ischemic demyelination. Abdomen/Pelvis CT 07/17/18 11:38 CONCLUSION: 1. Several loops of marginally distended proximal ileum in the left abdomen with mild fecalization and diffuse bowel wall thickening. Relative transition point in the midabdomen and left upper quadrant with decompressed proximal and distal bowel loops. Overall findings are most consistent with a partial small bowel obstruction likely secondary to adhesions. Findings are new since 2016 although the fecalization suggests a somewhat subacute etiology. No evidence for bowel infarction or perforation. 2. 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 3. Stable additional ancillary findings, as above. Abdomen X-Ray 07/19/18 06:00 CONCLUSION: 1. Stable NGT in the stomach. 2. Improved small bowel distention consistent with resolving partial small bowel obstruction. Small Bowel X-Ray 07/20/18 00:00 CONCLUSION: There is no current small bowel obstruction. There is delayed passage of contrast through small bowel. Head CTA 07/21/18 15:00 CONCLUSION: 1. Negative CTA Head. Neck CTA 07/21/18 15:25 CONCLUSION: 1. Mild to moderate atherosclerosis without hemodynamically significant carotid stenosis. Streak artifact from cervical fusion obscures portion of left common carotid artery. NG tube is present. Right vertebral artery is dominant. Head CT 07/22/18 00:00 CONCLUSION: No significant change. Chest X-Ray 07/22/18 05:00 CONCLUSION: Right base mild atelectasis or consolidation. - Procedures none Assessment and Plan - Assessment (1) Small bowel obstruction Code(s): K56.609 - Unspecified intestinal obstruction, unspecified as to partial versus complete obstruction Status: Acute - Plan 72-year-old male with: 1. Intracranial Hemorrhage secondary to Hypertension Stable Neurosurgery following neuro checks per protocol. CTA brain with no aneurysm. Repeat head CT done 07/22 showed stable basal ganglia bleed. Neurosurgery consulted. Nonsurgical at this time. Continue IV Keppra for prophylaxis for total of 7 days DC date July 29 Maintain SBP <160 mm Hg. 2. Hypertensive Emergency today blood pressure 204/91 mm Hg. discussed with nurse re started Cardene. On hydralazine as needed. Lopressor held on admission due to bradycardia, cardiology following. 2D echo with normal LV function 3. Small bowel obstruction 07/26: seen by General Surgery Doctor Dalila, not found definitive Obstruction on SBFT and pain resolved, Minimal NG output, will clamp NG and give trials of clears. 4. CAD stable 5. Hyperlipidemia will continue Home medicines once taking by mouth 6. Urinary retention with history of BPH resolved recommended to repeat laboratory at this time stat to follow electrolytes. prophylaxis: PPI/SCDs. No subcu heparin or Lovenox in view of ICH PT, increase activity as tolerated Code Status: Full code Discussed Condition With: Patient, and nurse. Discharge Planning: Expected in one to two days.
[2018-07-26] MEDS: Sodium Chloride 0.9% 2 ML Flush BID IV.FLUSH SCH ×2 (11:05→20:01)
[2018-07-26] MEDS: Senna/Docusate Sodium 8.6/50 MG Tablet PO SCH ×2 (11:05→20:01)
--- NOTE | 2018-07-26 13:46 | P.PNGS ---
Subjective Patient reports: feels better (hungry, no pain) Physical Exam Vital signs: Vital Signs 07/25/18 14:00 07/25/18 15:54 07/25/18 16:00 Temperature 98.6 F Pulse Rate 106 H 92 H Respiratory Rate 16 21 Blood Pressure 150/80 H Pulse Oximetry 95 07/25/18 18:00 07/25/18 20:00 07/25/18 22:00 Temperature 98.8 F Pulse Rate 92 H 88 96 H Respiratory Rate 24 Blood Pressure 143/71 H Pulse Oximetry 94 L 07/25/18 22:29 07/25/18 22:42 07/26/18 00:00 Temperature 98.5 F Pulse Rate 94 H Respiratory Rate 24 20 Blood Pressure 158/75 H Pulse Oximetry 94 L 95 07/26/18 02:00 07/26/18 04:00 07/26/18 06:00 Temperature 98.8 F Pulse Rate 94 H 98 H 92 H Respiratory Rate 22 Blood Pressure 204/91 H Pulse Oximetry 95 07/26/18 07:36 Temperature Pulse Rate Respiratory Rate Blood Pressure Pulse Oximetry 96 Intake & Output 07/25/18 07/26/18 07/26/18 18:59 06:59 18:59 Intake Total 805 / 805 3500.2 / 3500.2 250 / 250 Output Total 750 / 750 1500 / 1500 Balance 55 / 55 2000.2 / 2000.2 250 / 250 Weight 88.6 kg Intake: IV 805 / 805 3470.2 / 3470.2 250 / 250 NS + KCl 20 mEq Inj 1,000 ML @ 700 / 700 1000 / 1000 80 mls/hr IV.CONT .[id number] [facility] Rx#:[id number] Cardene Inj 25 MG In NS Inj 240 0 / 0 250 / 250 ML @ 5 MG/HR 50 mls/hr IV.CONT TITRATE PRN Rx#:[id number] Intralipid 20% Inj 250 ML @ 10 250 / 250 mls/hr IV.SIG Q24H [facility] Rx#: [id number] MVI-12 Inj 10 ML Folvite Inj 1 2009.2 / 2009.2 MG In Clinimix E 4.25%/D5W Inj 2,000 ML @ 83 mls/hr IV.SIG Q24H [facility] Rx#:[id number] Keppra Inj 500 MG In NS Inj 100 105 / 105 210 / 210 ML @ 400 mls/hr IV.SIG Q12H [facility] Rx#:[id number] Oral 30 / 30 Output: Urine 750 / 750 1500 / 1500 Other: Date of Last Bowel Movement 07/22/18 07/22/18 # Bowel Movements 0 - Constitutional no acute distress - Routine Abdominal Exam Present: soft, normoactive bowel sounds. Absent: tenderness, distended, rebound , guarding - Urinary Catheter Management Straight Cath placed during this visit: yes, but has since been removed by the nurse Reason for continuing: Acute urinary retention Insertion date: 07/18/18 Insertion time: 20:15 Removal date: 07/18/18 Removal time: 13:00 Indwelling Urethral Catheter Cath placed during this visit: yes, but has since been removed by the nurse Reason for continuing: Acute urinary retention Removal date: 07/24/18 Removal time: 15:45 Results - Labs 07/24/18 03:16 07/24/18 03:16 - Imaging Imaging: ITS Impressions Abdomen/Pelvis CT 07/17/18 11:38 CONCLUSION: 1. Several loops of marginally distended proximal ileum in the left abdomen with mild fecalization and diffuse bowel wall thickening. Relative transition point in the midabdomen and left upper quadrant with decompressed proximal and distal bowel loops. Overall findings are most consistent with a partial small bowel obstruction likely secondary to adhesions. Findings are new since 2016 although the fecalization suggests a somewhat subacute etiology. No evidence for bowel infarction or perforation. 2. 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 3. Stable additional ancillary findings, as above. Abdomen X-Ray 07/19/18 06:00 CONCLUSION: 1. Stable NGT in the stomach. 2. Improved small bowel distention consistent with resolving partial small bowel obstruction. Small Bowel X-Ray 07/20/18 00:00 CONCLUSION: There is no current small bowel obstruction. There is delayed passage of contrast through small bowel. Head CTA 07/21/18 15:00 CONCLUSION: 1. Negative CTA Head. Neck CTA 07/21/18 15:25 CONCLUSION: 1. Mild to moderate atherosclerosis without hemodynamically significant carotid stenosis. Streak artifact from cervical fusion obscures portion of left common carotid artery. NG tube is present. Right vertebral artery is dominant. Chest X-Ray 07/22/18 05:00 CONCLUSION: Right base mild atelectasis or consolidation. Head CT 07/25/18 17:03 CONCLUSION: 1. Stable examination with a 2.5 cm parenchymal hemorrhage in the medial aspect of the right temporal lobe. Surrounding edema but no midline shift. 2. Stable periventricular small vessel ischemic demyelination. . Assessment and Plan - Assessment (1) Small bowel obstruction Code(s): K56.609 - Unspecified intestinal obstruction, unspecified as to partial versus complete obstruction Status: Acute Plan: 72 year old male with SBO, resolving -SBFT shows no definitive obstruction -pain resolved -minimal Ng output -will clamp NG and give trial of clears
[2018-07-26 14:36] LABS: Anion Gap 8 meq/L (5-15); Blood Urea Nitrogen 12 mg/dL (7-18); Calcium 8.1 mg/dL (8.5-10.1); Carbon Dioxide 24.8 meq/L (21.0-32.0); Chloride 102 meq/L (98-107); Glomerular Filtration Rate Greater Than 89 mL/min (>89); Glucose,Random 122 mg/dL (74-106); Magnesium 1.9 mg/dL (1.5-2.5); Potassium 3.9 meq/L (3.5-5.1); Sodium 135 meq/L (136-145)
[2018-07-26] MEDS: oxyCODONE/Acetaminophen 10/325 Tablet PO PRN (15:38)
[2018-07-26] MEDS: amLODIPine 10 MG Tablet PO SCH (18:32)
[2018-07-26] MEDS: Pantoprazole Inj 40 MG Vial IV.PUSH SCH (18:33)
[2018-07-27] MEDS: Morphine Inj 4 MG/ML Vial IV.PUSH PRN (04:00)
[2018-07-27] MEDS: hydrALAZINE HCl Inj 20 MG/ML Vial IV.PUSH PRN (04:02)
[2018-07-27] MEDS: Acetaminophen 325 MG Tablet PO PRN ×2 (09:24→15:52)
[2018-07-27] MEDS: Senna/Docusate Sodium 8.6/50 MG Tablet PO SCH ×2 (09:24→20:36)
[2018-07-27] MEDS: amLODIPine 10 MG Tablet PO SCH (09:24)
--- NOTE | 2018-07-27 09:25 | P.PN ---
Subjective Interval history: Patient with Small bowel obstruction, Intracranial Hemorrhage and Hypertensive Emergency, 07/26: Seen in his bedroom in the presence of his and Nurse, He wants to eat, but not passing gas, no BM yet, seen by General Surgery Doctor Dalila, not found definitive Obstruction on SBFT and pain resolved, Minimal NG output, will clamp NG and give trials of clears. 07/27: Seen in his bedroom in the presence of nurse and his , will remove IV fluids and continue TPN by now awaiting for surgical follow up for today, NG tube clamped, probably will be removed later no nausea, vomit, passing gas. Physical Exam Vital signs: Vital Signs 07/26/18 10:00 07/26/18 12:00 07/26/18 14:00 Temperature 98.6 F Pulse Rate 84 82 82 Respiratory Rate 15 Blood Pressure 142/76 H Pulse Oximetry 95 07/26/18 16:00 07/26/18 16:25 07/26/18 18:00 Temperature 98.3 F Pulse Rate 90 85 Respiratory Rate 21 17 Blood Pressure 147/74 H Pulse Oximetry 96 07/26/18 20:00 07/26/18 20:48 07/26/18 22:00 Temperature 98.0 F Pulse Rate 90 85 Respiratory Rate 22 Blood Pressure 153/78 H Pulse Oximetry 94 L 96 07/27/18 00:00 07/27/18 00:09 07/27/18 02:00 Temperature 98.3 F Pulse Rate 81 81 Respiratory Rate 18 18 Blood Pressure 146/81 H Pulse Oximetry 95 07/27/18 04:00 07/27/18 06:00 07/27/18 08:00 Temperature 98.2 F 98.2 F Pulse Rate 96 H 89 Respiratory Rate 23 16 Blood Pressure 166/85 H 141/75 H Pulse Oximetry 95 95 Intake & Output 07/26/18 07/27/18 07/27/18 18:59 06:59 18:59 Intake Total 2024 / 202 3565.2 / 3565.2 Output Total 1300 / 1300 725 / 725 Balance 725 / 725 2840.2 / 2840.2 Weight 92.8 kg Intake: IV 1605 / 1605 3365.2 / 3365.2 NS + KCl 20 mEq Inj 1,000 ML @ 1000 / 1000 1000 / 1000 80 mls/hr IV.CONT .[id number] [facility] Rx#:[id number] Cardene Inj 25 MG In NS Inj 240 500 / 500 ML @ 5 MG/HR 50 mls/hr IV.CONT TITRATE PRN Rx#:[id number] Intralipid 20% Inj 250 ML @ 10 250 / 250 mls/hr IV.SIG Q24H [facility] Rx#: [id number] MVI-12 Inj 10 ML Folvite Inj 1 2009.2 / 2010.2 MG In Clinimix E 4.25%/D5W Inj 2,000 ML @ 83 mls/hr IV.SIG Q24H [facility] Rx#:[id number] Keppra Inj 500 MG In NS Inj 100 105 / 105 105 / 105 ML @ 400 mls/hr IV.SIG Q12H [facility] Rx#:[id number] Oral 420 / 420 200 / 200 Output: Urine Amount (Catheter) 1300 / 1300 725 / 725 Condom Catheter 1300 / 1300 725 / 725 Other: Date of Last Bowel Movement 07/22/18 07/22/18 # Bowel Movements 0 Narrative: GENERAL: Obese patient, Well developed, no acute distress. NG tube clamped. SKIN: Warm and dry. CARDIOVASCULAR: Regular rate and rhythm. No murmurs rubs or gallops. RESPIRATORY: No accessory muscle use. Clear to auscultation. Breath sounds equal bilaterally. GASTROINTESTINAL: soft, non tender but moderate distention. MUSCULOSKELETAL: Extremities without clubbing, cyanosis, has edema on both hands. NEUROLOGICAL: no focal deficits. alert and oriented x 3. - Urinary Catheter Management Straight Cath placed during this visit: yes, but has since been removed by the nurse Reason for continuing: Acute urinary retention Insertion date: 07/18/18 Insertion time: 20:15 Removal date: 07/18/18 Removal time: 13:00 Indwelling Urethral Catheter Cath placed during this visit: yes, but has since been removed by the nurse Reason for continuing: Acute urinary retention Removal date: 07/24/18 Removal time: 15:45 Condom Catheter Cath placed during this visit: no Results - Labs CBC & Chem 7: 07/24/18 03:16 07/26/18 13:49 Laboratory Results - last 24 hr 07/26/18 07/26/18 13:49 13:49 Sodium 135 L Potassium 3.9 Chloride 102 Carbon Dioxide 24.8 Anion Gap 8 BUN 12 Creatinine 0.71 Estimated GFR Greater than 89 Random Glucose 122 H Calcium 8.1 L Phosphorus 3.6 Magnesium 1.9 - Imaging Head CT 07/25/18 17:03 CONCLUSION: 1. Stable examination with a 2.5 cm parenchymal hemorrhage in the medial aspect of the right temporal lobe. Surrounding edema but no midline shift. 2. Stable periventricular small vessel ischemic demyelination. Abdomen/Pelvis CT 07/17/18 11:38 CONCLUSION: 1. Several loops of marginally distended proximal ileum in the left abdomen with mild fecalization and diffuse bowel wall thickening. Relative transition point in the midabdomen and left upper quadrant with decompressed proximal and distal bowel loops. Overall findings are most consistent with a partial small bowel obstruction likely secondary to adhesions. Findings are new since 2016 although the fecalization suggests a somewhat subacute etiology. No evidence for bowel infarction or perforation. 2. 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 3. Stable additional ancillary findings, as above. Abdomen X-Ray 07/19/18 06:00 CONCLUSION: 1. Stable NGT in the stomach. 2. Improved small bowel distention consistent with resolving partial small bowel obstruction. Small Bowel X-Ray 07/20/18 00:00 CONCLUSION: There is no current small bowel obstruction. There is delayed passage of contrast through small bowel. Head CTA 07/21/18 15:00 CONCLUSION: 1. Negative CTA Head. Neck CTA 07/21/18 15:25 CONCLUSION: 1. Mild to moderate atherosclerosis without hemodynamically significant carotid stenosis. Streak artifact from cervical fusion obscures portion of left common carotid artery. NG tube is present. Right vertebral artery is dominant. Chest X-Ray 07/22/18 05:00 CONCLUSION: Right base mild atelectasis or consolidation. Head CT 07/25/18 17:03 CONCLUSION: 1. Stable examination with a 2.5 cm parenchymal hemorrhage in the medial aspect of the right temporal lobe. Surrounding edema but no midline shift. 2. Stable periventricular small vessel ischemic demyelination. . - Procedures none Assessment and Plan - Assessment (1) Small bowel obstruction Code(s): K56.609 - Unspecified intestinal obstruction, unspecified as to partial versus complete obstruction Status: Acute - Plan 72-year-old male with: 1. Intracranial Hemorrhage secondary to Hypertension Stable Neurosurgery following neuro checks per protocol. CTA brain with no aneurysm. Repeat head CT done 07/22 showed stable basal ganglia bleed. Neurosurgery consulted. Nonsurgical at this time. Continue IV Keppra for prophylaxis for total of 7 days DC date July 29 Maintain SBP <160 mm Hg. 2. Hypertensive Emergency now better control continue present care. 3. Small bowel obstruction 07/26: seen by General Surgery Doctor Dalila, not found definitive Obstruction on SBFT and pain resolved, Minimal NG output, to remove NG tube later, continue liquid diet as per General Surgery. 4. CAD stable 5. Hyperlipidemia will continue Home medicines once taking by mouth 6. Urinary retention with history of BPH resolved recommended to repeat laboratory at this time stat to follow electrolytes. prophylaxis: PPI/SCDs. No subcu heparin or Lovenox in view of ICH PT, increase activity as tolerated discontinue IV fluids continue TPN Remove NG tube Morphine removed. Code Status: Full code Discussed Condition With: Patient, nurse and his in the room. Discharge Planning: Once cleared by general Surgery and Neurosurgery.
[2018-07-27] MEDS: Sodium Chloride 0.9% 2 ML Flush BID IV.FLUSH SCH ×2 (09:29→20:36)
--- NOTE | 2018-07-27 14:57 | P.PNGS ---
Subjective Patient reports: feels better, flatus Physical Exam Vital signs: Vital Signs 07/26/18 16:00 07/26/18 16:25 07/26/18 18:00 Temperature 98.3 F Pulse Rate 90 85 Respiratory Rate 21 17 Blood Pressure 147/74 H Pulse Oximetry 96 07/26/18 20:00 07/26/18 20:48 07/26/18 22:00 Temperature 98.0 F Pulse Rate 90 85 Respiratory Rate 22 Blood Pressure 153/78 H Pulse Oximetry 94 L 96 07/27/18 00:00 07/27/18 00:09 07/27/18 02:00 Temperature 98.3 F Pulse Rate 81 81 Respiratory Rate 18 18 Blood Pressure 146/81 H Pulse Oximetry 95 07/27/18 04:00 07/27/18 06:00 07/27/18 08:00 Temperature 98.2 F 98.2 F Pulse Rate 96 H 89 Respiratory Rate 23 16 Blood Pressure 166/85 H 141/75 H Pulse Oximetry 95 95 07/27/18 10:01 Temperature Pulse Rate Respiratory Rate Blood Pressure Pulse Oximetry 94 L Intake & Output 07/26/18 07/27/18 07/27/18 18:59 06:59 18:59 Intake Total 2025 / 2025 3565.2 / 3565.2 Output Total 1300 / 1300 725 / 725 Balance 725 / 725 2840.2 / 2840.2 Weight 92.8 kg Intake: IV 1605 / 1605 3365.2 / 3365.2 NS + KCl 20 mEq Inj 1,000 ML @ 1000 / 1000 1000 / 1000 80 mls/hr IV.CONT .[id number] [facility] Rx#:[id number] Cardene Inj 25 MG In NS Inj 240 500 / 500 ML @ 5 MG/HR 50 mls/hr IV.CONT TITRATE PRN Rx#:[id number] Intralipid 20% Inj 250 ML @ 10 250 / 250 mls/hr IV.SIG Q24H [facility] Rx#: [id number] MVI-12 Inj 10 ML Folvite Inj 1 2009.2 / 2009.2 MG In Clinimix E 4.25%/D5W Inj 2,000 ML @ 83 mls/hr IV.SIG Q24H [facility] Rx#:[id number] Keppra Inj 500 MG In NS Inj 100 105 / 105 105 / 105 ML @ 400 mls/hr IV.SIG Q12H [facility] Rx#:[id number] Oral 420 / 420 200 / 200 Output: Urine Amount (Catheter) 1300 / 1300 725 / 725 Condom Catheter 1300 / 1300 725 / 725 Other: Date of Last Bowel Movement 07/22/18 07/22/18 # Bowel Movements 0 - Constitutional no acute distress - Routine Abdominal Exam Present: soft, normoactive bowel sounds. Absent: tenderness, distended, rebound , guarding - Urinary Catheter Management Straight Cath placed during this visit: yes, but has since been removed by the nurse Reason for continuing: Acute urinary retention Insertion date: 07/18/18 Insertion time: 20:15 Removal date: 07/18/18 Removal time: 13:00 Indwelling Urethral Catheter Cath placed during this visit: yes, but has since been removed by the nurse Reason for continuing: Acute urinary retention Removal date: 07/24/18 Removal time: 15:45 Condom Catheter Cath placed during this visit: no Results - Labs 07/24/18 03:16 07/26/18 13:49 - Imaging Imaging: ITS Impressions Abdomen/Pelvis CT 07/17/18 11:38 CONCLUSION: 1. Several loops of marginally distended proximal ileum in the left abdomen with mild fecalization and diffuse bowel wall thickening. Relative transition point in the midabdomen and left upper quadrant with decompressed proximal and distal bowel loops. Overall findings are most consistent with a partial small bowel obstruction likely secondary to adhesions. Findings are new since 2016 although the fecalization suggests a somewhat subacute etiology. No evidence for bowel infarction or perforation. 2. 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 3. Stable additional ancillary findings, as above. Abdomen X-Ray 07/19/18 06:00 CONCLUSION: 1. Stable NGT in the stomach. 2. Improved small bowel distention consistent with resolving partial small bowel obstruction. Small Bowel X-Ray 07/20/18 00:00 CONCLUSION: There is no current small bowel obstruction. There is delayed passage of contrast through small bowel. Head CTA 07/21/18 15:00 CONCLUSION: 1. Negative CTA Head. Neck CTA 07/21/18 15:25 CONCLUSION: 1. Mild to moderate atherosclerosis without hemodynamically significant carotid stenosis. Streak artifact from cervical fusion obscures portion of left common carotid artery. NG tube is present. Right vertebral artery is dominant. Chest X-Ray 07/22/18 05:00 CONCLUSION: Right base mild atelectasis or consolidation. Head CT 07/25/18 17:03 CONCLUSION: 1. Stable examination with a 2.5 cm parenchymal hemorrhage in the medial aspect of the right temporal lobe. Surrounding edema but no midline shift. 2. Stable periventricular small vessel ischemic demyelination. . Assessment and Plan - Assessment (1) Small bowel obstruction Code(s): K56.609 - Unspecified intestinal obstruction, unspecified as to partial versus complete obstruction Status: Acute Plan: 72 year old male with SBO, resolving -SBFT shows no definitive obstruction -pain resolved -minimal Ng output, DC NG today -tolerating clears, advance to full. please leave patient on full liquids!
[2018-07-27] MEDS: Pantoprazole Inj 40 MG Vial IV.PUSH SCH (18:37)
[2018-07-28] MEDS: Sodium Chloride 0.9% 2 ML Flush BID IV.FLUSH SCH ×2 (08:29→20:21)
[2018-07-28] MEDS: amLODIPine 10 MG Tablet PO SCH (08:29)
[2018-07-28] MEDS: Senna/Docusate Sodium 8.6/50 MG Tablet PO SCH ×2 (08:29→20:21)
--- NOTE | 2018-07-28 11:23 | P.PNIM ---
Subjective Interval history: Patient with Small bowel obstruction, Intracranial Hemorrhage and Hypertensive Emergency, 07/26: Seen in his bedroom in the presence of his and Nurse, He wants to eat, but not passing gas, no BM yet, seen by General Surgery Doctor Dalila, not found definitive Obstruction on SBFT and pain resolved, Minimal NG output, will clamp NG and give trials of clears. 07/27: Seen in his bedroom in the presence of nurse and his , will remove IV fluids and continue TPN by now awaiting for surgical follow up for today, NG tube clamped, probably will be removed later no nausea, vomit, passing gas. 07-28 tolerating a diet so far INCREASE ACTIVITY DW RN AND PT AND FAMILY AM LABS PT AND OT FOR LEFT SIDE WEAKNESS Physical Exam Vital signs: Vital Signs 07/27/18 11:30 07/27/18 11:45 07/27/18 12:00 Temperature 98.2 F Pulse Rate 89 90 99 H Respiratory Rate 17 16 27 H Blood Pressure 159/88 H Pulse Oximetry 94 L 94 L 94 L 07/27/18 12:15 07/27/18 12:30 07/27/18 12:45 Temperature Pulse Rate 93 H 92 H 91 H Respiratory Rate 21 15 20 Blood Pressure Pulse Oximetry 94 L 95 93 L 07/27/18 13:00 07/27/18 13:15 07/27/18 13:30 Temperature Pulse Rate 93 H 100 H 102 H Respiratory Rate 16 17 16 Blood Pressure 147/76 H Pulse Oximetry 93 L 95 92 L 07/27/18 13:45 07/27/18 14:00 07/27/18 14:15 Temperature Pulse Rate 103 H 92 H 95 H Respiratory Rate 24 22 Blood Pressure 153/83 H Pulse Oximetry 92 L 94 L 93 L 07/27/18 14:30 07/27/18 14:45 07/27/18 15:00 Temperature Pulse Rate 95 H 92 H 95 H Respiratory Rate 20 21 27 H Blood Pressure 141/73 H Pulse Oximetry 93 L 94 L 93 L 07/27/18 15:15 07/27/18 15:30 07/27/18 15:45 Temperature Pulse Rate 91 H 93 H 96 H Respiratory Rate 17 22 31 H Blood Pressure Pulse Oximetry 93 L 94 L 93 L 07/27/18 16:00 07/27/18 16:15 07/27/18 16:30 Temperature 98.1 F Pulse Rate 90 88 91 H Respiratory Rate 24 17 16 Blood Pressure 138/73 Pulse Oximetry 95 96 96 07/27/18 16:45 07/27/18 17:00 07/27/18 17:15 Temperature Pulse Rate 92 H 94 H 91 H Respiratory Rate 25 H 11 L 27 H Blood Pressure 148/76 H Pulse Oximetry 97 94 L 95 07/27/18 17:30 07/27/18 17:45 07/27/18 18:00 Temperature Pulse Rate 89 91 H 87 Respiratory Rate 28 H 32 H 23 Blood Pressure 133/69 Pulse Oximetry 95 95 95 07/27/18 18:15 07/27/18 18:30 07/27/18 18:45 Temperature Pulse Rate 98 H 106 H 99 H Respiratory Rate 20 22 18 Blood Pressure Pulse Oximetry 94 L 94 L 93 L 07/27/18 19:00 07/27/18 19:15 07/27/18 20:00 Temperature 98.3 F Pulse Rate 95 H 92 H 94 H Respiratory Rate 14 25 H 14 Blood Pressure 140/80 Pulse Oximetry 94 L 94 L 94 L 07/27/18 22:00 07/28/18 00:00 07/28/18 02:00 Temperature 98.5 F Pulse Rate 90 92 H 85 Respiratory Rate 24 Blood Pressure 131/82 Pulse Oximetry 97 07/28/18 04:00 07/28/18 06:00 07/28/18 08:00 Temperature 98.0 F Pulse Rate 86 90 88 Respiratory Rate 24 Blood Pressure 162/79 H Pulse Oximetry 96 Intake & Output 07/27/18 07/28/18 07/28/18 18:59 06:59 18:59 Intake Total 505 / 505 2500.2 / 2500.2 105 / 105 Output Total 1800 / 1800 1500 / 1500 Balance -1295 / -1295 1000.2 / 1000.2 105 / 105 Weight 96.2 kg Intake: IV 105 / 105 2260.2 / 2260.2 105 / 105 Intralipid 20% Inj 250 ML @ 10 250 / 250 mls/hr IV.SIG Q24H [facility] Rx#: [id number] MVI-12 Inj 10 ML Folvite Inj 1 2009.2 / 2009.2 MG In Clinimix E 4.25%/D5W Inj 2,000 ML @ 83 mls/hr IV.SIG Q24H [facility] Rx#:[id number] Keppra Inj 500 MG In NS Inj 100 105 / 105 105 / 105 ML @ 400 mls/hr IV.SIG Q12H [facility] Rx#:[id number] Oral 400 / 400 240 / 240 Output: Urine 1800 / 1800 Urine Amount (Catheter) 1500 / 1500 Condom Catheter 1500 / 1500 Other: Date of Last Bowel Movement 07/28/18 07/28/18 # Bowel Movements 1 Narrative: GENERAL: Obese patient, Well developed, no acute distress. NG TUBE IS OUT SKIN: Warm and dry. ORAL MUCOSA MOIST, NECK IS SUPPLE TONGUE IS MIDLINE NO JVD CARDIOVASCULAR: Regular rate and rhythm. No murmurs rubs or gallops. S1, S2, NO S3 OR S4 RESPIRATORY: No accessory muscle use. Clear to auscultation. Breath sounds equal bilaterally. GASTROINTESTINAL: soft, non tender but moderate distention. MUSCULOSKELETAL: Extremities without clubbing, cyanosis, has edema on both hands. SOME RIGHT UE WEAKNESS NEUROLOGICAL: no focal deficits. alert and oriented x 3. - Urinary Catheter Management Straight Cath placed during this visit: yes, but has since been removed by the nurse Reason for continuing: Acute urinary retention Insertion date: 07/18/18 Insertion time: 20:15 Removal date: 07/18/18 Removal time: 13:00 Indwelling Urethral Catheter Cath placed during this visit: yes, but has since been removed by the nurse Reason for continuing: Acute urinary retention Removal date: 07/24/18 Removal time: 15:45 Condom Catheter Cath placed during this visit: no Results - Labs CBC & Chem 7: 07/24/18 03:16 07/26/18 13:49 - Imaging ITS Impressions Abdomen/Pelvis CT 07/17/18 11:38 CONCLUSION: 1. Several loops of marginally distended proximal ileum in the left abdomen with mild fecalization and diffuse bowel wall thickening. Relative transition point in the midabdomen and left upper quadrant with decompressed proximal and distal bowel loops. Overall findings are most consistent with a partial small bowel obstruction likely secondary to adhesions. Findings are new since 2016 although the fecalization suggests a somewhat subacute etiology. No evidence for bowel infarction or perforation. 2. 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 3. Stable additional ancillary findings, as above. Abdomen X-Ray 07/19/18 06:00 CONCLUSION: 1. Stable NGT in the stomach. 2. Improved small bowel distention consistent with resolving partial small bowel obstruction. Small Bowel X-Ray 07/20/18 00:00 CONCLUSION: There is no current small bowel obstruction. There is delayed passage of contrast through small bowel. Head CTA 07/21/18 15:00 CONCLUSION: 1. Negative CTA Head. Neck CTA 07/21/18 15:25 CONCLUSION: 1. Mild to moderate atherosclerosis without hemodynamically significant carotid stenosis. Streak artifact from cervical fusion obscures portion of left common carotid artery. NG tube is present. Right vertebral artery is dominant. Chest X-Ray 07/22/18 05:00 CONCLUSION: Right base mild atelectasis or consolidation. Head CT 07/25/18 17:03 CONCLUSION: 1. Stable examination with a 2.5 cm parenchymal hemorrhage in the medial aspect of the right temporal lobe. Surrounding edema but no midline shift. 2. Stable periventricular small vessel ischemic demyelination. . - Procedures NONE Assessment and Plan - Assessment (1) Small bowel obstruction Code(s): K56.609 - Unspecified intestinal obstruction, unspecified as to partial versus complete obstruction Status: Acute - Plan 72-year-old male with: 1. Intracranial Hemorrhage secondary to Hypertension Stable Neurosurgery following neuro checks per protocol. CTA brain with no aneurysm. Repeat head CT done 07/22 showed stable basal ganglia bleed. Neurosurgery consulted. Nonsurgical at this time. Continue IV Keppra for prophylaxis for total of 7 days DC date July 29 Maintain SBP <160 mm Hg. 2. Hypertensive Emergency now better control continue present care. 3. Small bowel obstruction 07/26: seen by General Surgery Doctor Dalila, not found definitive Obstruction on SBFT and pain resolved, Minimal NG output, to remove NG tube later, continue liquid diet as per General Surgery. -NGT IS OUT 4. CAD stable 5. Hyperlipidemia will continue Home medicines once taking by mouth 6. Urinary retention with history of BPH resolved recommended to repeat laboratory at this time stat to follow electrolytes. prophylaxis: PPI/SCDs. No subcu heparin or Lovenox in view of ICH PT, increase activity as tolerated discontinue IV fluids Code Status: Full code Discussed Condition With: Patient, nurse and his in the room. Discharge Planning: Once cleared by general Surgery and Neurosurgery. Code Status: FULL CODE Discussed Condition With: RN AND PT AND FAMILY Discharge Planning: Once cleared by surgery and tolerating a diet HOPEFULLY HOME WITH HHC OR SNF FOR LEFT SIDE WEAKNESS
[2018-07-28] MEDS: Acetaminophen 325 MG Tablet PO PRN (11:37)
--- NOTE | 2018-07-28 14:16 | P.DIET ---
Nutritional Evaluation Type of nutrition evaluation: follow-up Nutrition consult regarding: TPN/PPN Nutrition screening: MDC Subjective Subjective Comments: Tolerating full liquids. Objective - Diagnosis Small Bowel Obstruction - Objective % IBW: 115 (IBW = 160#) Body Weight Used for Calculations: Upper end of IBW (80kg) Energy Needs - Lower Range (kCal/kg): 25 Energy Needs - Upper Range (kCal/kg): 30 Lower Limit kCal/kg (kCals): 2,000 Upper Limit kCal/kg (kCals): 2,400 Lower Limit Protein Factor (Grams per Kg): 1.1 Upper Limit Protein Factor (Grams per Kg): 1.3 Lower Protein Needs (Protein): 88 Upper Protein Needs (Protein): 104 Dietitian Reviewed in Medical Record: Current diet, Curent medications, Intake & Output, Labs, Medical history, TPN/PPN Diet Order: Full Liquid Objective Comments: Labs include: Triglycerides 76 Feeding - Current TPN/PPN Current PPN: Clinimix E 4.25/5 Current TPN/PPN Rate (ml/hr): 83 Amino Acid and Dextrose Current kCals Provided: 680 Amino Acid and Dextrose Current Protein Provided: 85 Current Lipid Concentration: 20% Current Lipids Rate: Continuous rate of 10 mls/hr over 24 hours Current kCal Provided by TPN/PPN: 1,160 Assessment Assessment: Pt remains at high nutrition risk on a full lquid diet and receiving PPN/lipids as above. Labs, wts and clinical course reviewed. NG-t is now out. Wt changes noted with CBW = 96.2 Recommendations: Continue current PPN and lipids until pt can tolerate a solid diet and eat >50%. Dietitian to Monitor: Lab values, Intake & Output, Diet tolerance, TPN/PPN tolerance, Weight change, PO Intake, Diet advancement, Medical course
[2018-07-28] MEDS: oxyCODONE/Acetaminophen 10/325 Tablet PO PRN ×2 (17:01→23:20)
[2018-07-28] MEDS: Pantoprazole Inj 40 MG Vial IV.PUSH SCH (17:57)
[2018-07-29 05:07] LABS: Baso % (Auto) 0.8 % (0.0-2.0); Eos # (Auto) 0.1 th/mm3 (0.0-0.4); Eos % (Auto) 4.2 % (0.0-4.0); Hematocrit 37.6 % (39.0-51.0); Hemoglobin 12.4 gm/dL (13.0-17.0); Lymph % (Auto) 35.2 % (9.0-44.0); Mean Corpuscular HGB Conc 32.9 % (32.0-36.0); Mean Corpuscular Hemoglobin 30.3 pg (27.0-34.0); Mean Corpuscular Volume 92.1 fL (80.0-100.0); Mean Platelet Volume 8.2 fL (7.0-11.0); Mono # (Auto) 0.4 th/mm3 (0.0-0.9); Mono % (Auto) 11.9 % (0.0-8.0); Neut # (Auto) 1.4 th/mm3 (1.8-7.7); Neut % (Auto) 47.9 % (16.0-70.0); Platelet Count 172 th/mm3 (150-450); Red Blood Count 4.09 mil/mm3 (4.50-5.90); Red Cell Distribution Width 13.4 % (11.6-17.2)
[2018-07-29 05:23] LABS: Albumin 2.5 g/dL (3.4-5.0); Anion Gap 7 meq/L (5-15); Aspartate Aminotransferase 17 U/L (15-37); Blood Urea Nitrogen 12 mg/dL (7-18); Calcium 8.2 mg/dL (8.5-10.1); Carbon Dioxide 27.4 meq/L (21.0-32.0); Chloride 100 meq/L (98-107); Glomerular Filtration Rate Greater Than 89 mL/min (>89); Glucose,Random 95 mg/dL (74-106); Potassium 4.4 meq/L (3.5-5.1); Sodium 134 meq/L (136-145)
[2018-07-29 05:24] LABS: Alanine Aminotransferase 36 U/L (12-78); Phosphorus 4.4 mg/dL (2.5-4.9)
[2018-07-29 05:26] LABS: Alkaline Phosphatase 52 U/L (45-117); Total Protein 5.9 g/dL (6.4-8.2)
[2018-07-29] MEDS: oxyCODONE/Acetaminophen 10/325 Tablet PO PRN (05:26)
[2018-07-29] MEDS: Senna/Docusate Sodium 8.6/50 MG Tablet PO SCH (08:04)
[2018-07-29] MEDS: Sodium Chloride 0.9% 2 ML Flush BID IV.FLUSH SCH (08:04)
[2018-07-29] MEDS: amLODIPine 10 MG Tablet PO SCH (08:04)
[2018-07-29] MEDS: Acetaminophen 325 MG Tablet PO PRN (09:20)
--- NOTE | 2018-07-29 11:37 | P.DCO ---
- Physical Therapy Order: Evaluate and treat, Improve ambulation, Strength and gait training - Occupational Therapy Order: Evaluate and treat, Improve ADL, Gross motor coordination, Fine motor coordination - Home Health Nursing Order: Medical education, Signs/symptoms of disease process, Nursing assessment with vital signs, Telehealth - Home Health Aide Order: To assist in: Bathing and personal care, tripe washer and meal prep - Case Management Consult Yes - Certification I have seen patient Tim Ramirez on 07/29/18. My clinical findings support the need for the requested home health care services because: Limited mobility due to disease progression, Deconditioned with increased weakness, Medication compliance is questionable, Limited ability to care for self, Need for psychosocial assistance, Impaired cognition/judgement, High risk of falls I certify that my clinical findings support that this patient is homebound because: Post-op weakness, Impaired cognitive ability/safety, Unsteady gait/balance, Unsafe to leave home unassisted
--- NOTE | 2018-07-29 11:41 | P.PNIM ---
Subjective Interval history: Patient with Small bowel obstruction, Intracranial Hemorrhage and Hypertensive Emergency, 07/26: Seen in his bedroom in the presence of his and Nurse, He wants to eat, but not passing gas, no BM yet, seen by General Surgery Doctor Dalila, not found definitive Obstruction on SBFT and pain resolved, Minimal NG output, will clamp NG and give trials of clears. 07/27: Seen in his bedroom in the presence of nurse and his , will remove IV fluids and continue TPN by now awaiting for surgical follow up for today, NG tube clamped, probably will be removed later no nausea, vomit, passing gas. 07-28 tolerating a diet so far INCREASE ACTIVITY DW RN AND PT AND FAMILY AM LABS PT AND OT FOR LEFT SIDE WEAKNESS 07-29 wants to go home REFUSES SNF OR REHAB WANTS TO GO HOME WITH C DC TO HOME TODAY IF OK WITH SURGERY DC TO HOME WITH [facility] Physical Exam Vital signs: Vital Signs 07/28/18 12:00 07/28/18 16:00 07/28/18 20:00 Temperature 98.4 F 98.6 F 98.4 F Pulse Rate 80 84 74 Respiratory Rate 22 25 H 18 Blood Pressure 140/74 139/81 151/86 H Pulse Oximetry 95 95 95 07/28/18 21:48 07/28/18 23:50 07/29/18 00:00 Temperature 98.3 F Pulse Rate 90 Respiratory Rate 16 13 Blood Pressure 146/78 H Pulse Oximetry 95 96 07/29/18 03:32 07/29/18 04:00 07/29/18 07:30 Temperature 98.9 F Pulse Rate 72 Respiratory Rate 16 Blood Pressure 133/86 Pulse Oximetry 94 L 95 93 L 07/29/18 08:00 Temperature 98.4 F Pulse Rate 81 Respiratory Rate 22 Blood Pressure 128/74 Pulse Oximetry 95 Intake & Output 07/28/18 07/29/18 07/29/18 18:59 06:59 18:59 Intake Total 525 / 525 2845.2 / 2845.2 Output Total 2400 / 2400 1950 / 1950 Balance -1875 / -1875 895.2 / 895.2 Weight 96.1 kg Intake: IV 105 / 105 2365.2 / 2365.2 Intralipid 20% Inj 250 ML @ 10 250 / 250 mls/hr IV.SIG Q24H [facility] Rx#: [id number] MVI-12 Inj 10 ML Folvite Inj 1 2009.2 / 2009.2 MG In Clinimix E 4.25%/D5W Inj 2,000 ML @ 83 mls/hr IV.SIG Q24H [facility] Rx#:[id number] Keppra Inj 500 MG In NS Inj 100 105 / 105 105 / 105 ML @ 400 mls/hr IV.SIG Q12H [facility] Rx#:[id number] Oral 420 / 420 480 / 480 Output: Urine Amount (Catheter) 2400 / 2400 1949 / 1949 Condom Catheter 2400 / 2400 1949 / 1949 Gastric Drainage 0 / 0 Left Nare 0 / 0 Other: Date of Last Bowel Movement 07/28/18 07/28/18 07/28/18 # Bowel Movements 1 0 Narrative: GENERAL: Obese patient, Well developed, no acute distress. NG TUBE IS OUT SKIN: Warm and dry. ORAL MUCOSA MOIST, NECK IS SUPPLE TONGUE IS MIDLINE NO JVD CARDIOVASCULAR: Regular rate and rhythm. No murmurs rubs or gallops. S1, S2, NO S3 OR S4 RESPIRATORY: No accessory muscle use. Clear to auscultation. Breath sounds equal bilaterally. GASTROINTESTINAL: soft, non tender but moderate distention. MUSCULOSKELETAL: Extremities without clubbing, cyanosis, has edema on both hands. SOME RIGHT UE WEAKNESS NEUROLOGICAL: no focal deficits. alert and oriented x 3. - Urinary Catheter Management Straight Cath placed during this visit: yes, but has since been removed by the nurse Reason for continuing: Acute urinary retention Insertion date: 07/18/18 Insertion time: 20:15 Removal date: 07/18/18 Removal time: 13:00 Indwelling Urethral Catheter Cath placed during this visit: yes, but has since been removed by the nurse Reason for continuing: Acute urinary retention Removal date: 07/24/18 Removal time: 15:45 Condom Catheter Cath placed during this visit: no Results - Labs CBC & Chem 7: 07/29/18 04:20 07/29/18 04:20 Laboratory Results - last 24 hr 07/29/18 07/29/18 04:20 04:20 WBC 3.0 L RBC 4.09 L Hgb 12.4 L Hct 37.6 L MCV 92.1 MCH 30.3 MCHC 32.9 RDW 13.4 Plt Count 172 MPV 8.2 Neut % (Auto) 47.9 Lymph % (Auto) 35.2 [place] % (Auto) 11.9 H Eos % (Auto) 4.2 H Baso % (Auto) 0.8 Neut # (Auto) 1.4 L Lymph # (Auto) 1.0 [place] # (Auto) 0.4 Eos # (Auto) 0.1 Baso # (Auto) 0.0 WBC Differential . Differential Comment Auto diff final Sodium 134 L Potassium 4.4 Chloride 100 Carbon Dioxide 27.4 Anion Gap 7 BUN 12 Creatinine 0.73 Estimated GFR Greater than 89 Random Glucose 95 Calcium 8.2 L Phosphorus 4.4 Magnesium 2.0 Total Bilirubin 0.4 AST 17 ALT 36 Alkaline Phosphatase 52 Total Protein 5.9 L Albumin 2.5 L - Imaging ITS Impressions Abdomen/Pelvis CT 07/17/18 11:38 CONCLUSION: 1. Several loops of marginally distended proximal ileum in the left abdomen with mild fecalization and diffuse bowel wall thickening. Relative transition point in the midabdomen and left upper quadrant with decompressed proximal and distal bowel loops. Overall findings are most consistent with a partial small bowel obstruction likely secondary to adhesions. Findings are new since 2016 although the fecalization suggests a somewhat subacute etiology. No evidence for bowel infarction or perforation. 2. 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 3. Stable additional ancillary findings, as above. Abdomen X-Ray 07/19/18 06:00 CONCLUSION: 1. Stable NGT in the stomach. 2. Improved small bowel distention consistent with resolving partial small bowel obstruction. Small Bowel X-Ray 07/20/18 00:00 CONCLUSION: There is no current small bowel obstruction. There is delayed passage of contrast through small bowel. Head CTA 07/21/18 15:00 CONCLUSION: 1. Negative CTA Head. Neck CTA 07/21/18 15:25 CONCLUSION: 1. Mild to moderate atherosclerosis without hemodynamically significant carotid stenosis. Streak artifact from cervical fusion obscures portion of left common carotid artery. NG tube is present. Right vertebral artery is dominant. Chest X-Ray 07/22/18 05:00 CONCLUSION: Right base mild atelectasis or consolidation. Head CT 07/25/18 17:03 CONCLUSION: 1. Stable examination with a 2.5 cm parenchymal hemorrhage in the medial aspect of the right temporal lobe. Surrounding edema but no midline shift. 2. Stable periventricular small vessel ischemic demyelination. . - Procedures NONE Assessment and Plan - Assessment (1) Small bowel obstruction Code(s): K56.609 - Unspecified intestinal obstruction, unspecified as to partial versus complete obstruction Status: Acute - Plan 72-year-old male with: 1. Intracranial Hemorrhage secondary to Hypertension Stable Neurosurgery following neuro checks per protocol. CTA brain with no aneurysm. Repeat head CT done 07/22 showed stable basal ganglia bleed. Neurosurgery consulted. Nonsurgical at this time. Continue IV Keppra for prophylaxis for total of 7 days DC date July 29 Maintain SBP <160 mm Hg. 2. Hypertensive Emergency now better control continue present care. 3. Small bowel obstruction 07/26: seen by General Surgery Doctor Dalila, not found definitive Obstruction on SBFT and pain resolved, Minimal NG output, to remove NG tube later, continue liquid diet as per General Surgery. -NGT IS OUT CARDIAC DIET 4. CAD stable 5. Hyperlipidemia will continue Home medicines once taking by mouth 6. Urinary retention with history of BPH resolved recommended to repeat laboratory at this time stat to follow electrolytes. prophylaxis: PPI/SCDs. No subcu heparin or Lovenox in view of ICH PT, increase activity as tolerated discontinue IV fluids Code Status: Full code Discussed Condition With: Patient, nurse and his in the room. Discharge Planning: DC TO HOME TODAY Code Status: FULL CODE Discussed Condition With: RN AND PT AND FAMILY AND CM Discharge Planning: TOLERATING A DIET HOPEFULLY HOME WITH [facility]
--- NOTE | 2018-07-29 11:59 | P.DS ---
Date of admission: 07/17/18 15:52 Primary care physician: Layla Chirinos MD Attending physician on discharge: Harvinder Carreon Anticipated date of discharge: 07/29/18 Brief History from admission: Patient is a 72-year-old -[place] gentleman who presented to the emergency department for evaluation of nausea and vomiting and diarrhea and abdominal pain. Patient reported symptoms have been ongoing for at least the past 3 days but have worsened today. Pain is mostly in the lower abdomen. Patient feels like he has gas and continues to have gas. Patient has not had any real relief. Has not taken anything from this. Has had some multiple bowel movements. Not sure if they are true diarrhea more more she. States that he has not vomited but is felt nauseated and feels like something is pushing up. Had this yesterday but not today. When patient came in here because symptoms have not improved pain is 8 out of 10 he denies any chest pain. Denies any shortness of breath. Denies any fevers or chills or sweats. Past medical history is significant for hyperlipidemia hypertension GERD and BPH as well as history of cervical surgical repair as well as left cataract surgery. Family history is unknown Patient update on day of discharge: Patient with Small bowel obstruction, Intracranial Hemorrhage and Hypertensive Emergency, 07/26: Seen in his bedroom in the presence of his and Nurse, He wants to eat, but not passing gas, no BM yet, seen by General Surgery Doctor Dalila, not found definitive Obstruction on SBFT and pain resolved, Minimal NG output, will clamp NG and give trials of clears. 07/27: Seen in his bedroom in the presence of nurse and his , will remove IV fluids and continue TPN by now awaiting for surgical follow up for today, NG tube clamped, probably will be removed later no nausea, vomit, passing gas. 07-28 tolerating a diet so far INCREASE ACTIVITY DW RN AND PT AND FAMILY AM LABS PT AND OT FOR LEFT SIDE WEAKNESS 07-29 wants to go home REFUSES SNF OR REHAB WANTS TO GO HOME WITH [facility] DC TO HOME TODAY IF OK WITH SURGERY DC TO HOME WITH [facility] HAS SOME WEAKNESS NEEDS PT DS: Diagnosis - Discharge Diagnosis (1) Small bowel obstruction Status: Acute (2) Hypertensive urgency Status: Acute (3) Noncompliance Status: Chronic (4) Coronary artery disease Status: Chronic (5) Hypertension Status: Chronic DS: Medications - Discharge Medications Prescriptions: amlodipine [Norvasc] 10 mg PO DAILY #30 tab atorvastatin 40 mg PO DAILY #30 tab folic acid 1 mg PO DAILY #30 tab [id number] [Daily Multivitamin] 1 cap PO DAILY #30 cap oxycodone-acetaminophen 1 tab PO Q6H PRN #12 tab PRN Reason: Pain Scale 6 To 10 pantoprazole [Protonix] 40 mg PO DAILY #30 tab sennosides-docusate sodium [Senna Plus] 2 tab PO BID #120 tab tamsulosin 0.4 mg PO BID #60 cap thiamine mononitrate (vit B1) 100 mg PO DAILY #30 tab DS: Summary Hospital Course: Patient with Small bowel obstruction, Intracranial Hemorrhage and Hypertensive Emergency, 07/26: Seen in his bedroom in the presence of his and Nurse, He wants to eat, but not passing gas, no BM yet, seen by General Surgery Doctor Dalila, not found definitive Obstruction on SBFT and pain resolved, Minimal NG output, will clamp NG and give trials of clears. 07/27: Seen in his bedroom in the presence of nurse and his , will remove IV fluids and continue TPN by now awaiting for surgical follow up for today, NG tube clamped, probably will be removed later no nausea, vomit, passing gas. 07-28 tolerating a diet so far INCREASE ACTIVITY DW RN AND PT AND FAMILY AM LABS PT AND OT FOR LEFT SIDE WEAKNESS 07-29 wants to go home REFUSES SNF OR REHAB WANTS TO GO HOME WITH HHC DC TO HOME TODAY IF OK WITH SURGERY DC TO HOME WITH [facility] - Time Spent with Patient Total time spent providing and/or coordinating discharge services: Greater than 30 minutes - Quality: VTE Deep Vein Thrombosis/Pulmonary Embolism Present on Admission: No Exam Vital signs: Vital Signs 07/28/18 12:00 07/28/18 16:00 07/28/18 20:00 Temperature 98.4 F 98.6 F 98.4 F Pulse Rate 80 84 74 Respiratory Rate 22 25 H 18 Blood Pressure 140/74 139/81 151/86 H Pulse Oximetry 95 95 95 07/28/18 21:48 07/28/18 23:50 07/29/18 00:00 Temperature 98.3 F Pulse Rate 90 Respiratory Rate 16 13 Blood Pressure 146/78 H Pulse Oximetry 95 96 07/29/18 03:32 07/29/18 04:00 07/29/18 07:30 Temperature 98.9 F Pulse Rate 72 Respiratory Rate 16 Blood Pressure 133/86 Pulse Oximetry 94 L 95 93 L 07/29/18 08:00 Temperature 98.4 F Pulse Rate 81 Respiratory Rate 22 Blood Pressure 128/74 Pulse Oximetry 95 Intake & Output 07/28/18 07/29/18 07/29/18 18:59 06:59 18:59 Intake Total 525 / 525 2845.2 / 2845.2 Output Total 2400 / 2400 1949 / 1950 Balance -1875 / -1875 895.2 / 895.2 Weight 96.1 kg Intake: IV 105 / 105 2365.2 / 2365.2 Intralipid 20% Inj 250 ML @ 10 250 / 250 mls/hr IV.SIG Q24H [facility] Rx#: [id number] MVI-12 Inj 10 ML Folvite Inj 1 2009.2 / 2009.2 MG In Clinimix E 4.25%/D5W Inj 2,000 ML @ 83 mls/hr IV.SIG Q24H [facility] Rx#:[id number] Keppra Inj 500 MG In NS Inj 100 105 / 105 105 / 105 ML @ 400 mls/hr IV.SIG Q12H [facility] Rx#:[id number] Oral 420 / 420 480 / 480 Output: Urine Amount (Catheter) 2400 / 2400 1949 / 1950 Condom Catheter 2400 / 2400 1949 / 1949 Gastric Drainage 0 / 0 Left Nare 0 / 0 Other: Date of Last Bowel Movement 07/28/18 07/28/18 07/28/18 # Bowel Movements 1 0 Narrative: GENERAL: Obese patient, Well developed, no acute distress. NG TUBE IS OUT SKIN: Warm and dry. ORAL MUCOSA MOIST, NECK IS SUPPLE TONGUE IS MIDLINE NO JVD CARDIOVASCULAR: Regular rate and rhythm. No murmurs rubs or gallops. S1, S2, NO S3 OR S4 RESPIRATORY: No accessory muscle use. Clear to auscultation. Breath sounds equal bilaterally. GASTROINTESTINAL: soft, non tender but moderate distention. MUSCULOSKELETAL: Extremities without clubbing, cyanosis, has edema on both hands. SOME RIGHT UE WEAKNESS NEUROLOGICAL: no focal deficits. alert and oriented x 3. Results Procedures completed during hospitalization: NONE Completed studies during hospitalization: ITS Impressions Abdomen/Pelvis CT 07/17/18 11:38 CONCLUSION: 1. Several loops of marginally distended proximal ileum in the left abdomen with mild fecalization and diffuse bowel wall thickening. Relative transition point in the midabdomen and left upper quadrant with decompressed proximal and distal bowel loops. Overall findings are most consistent with a partial small bowel obstruction likely secondary to adhesions. Findings are new since 2016 although the fecalization suggests a somewhat subacute etiology. No evidence for bowel infarction or perforation. 2. 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 3. Stable additional ancillary findings, as above. Abdomen X-Ray 07/19/18 06:00 CONCLUSION: 1. Stable NGT in the stomach. 2. Improved small bowel distention consistent with resolving partial small bowel obstruction. Small Bowel X-Ray 07/20/18 00:00 CONCLUSION: There is no current small bowel obstruction. There is delayed passage of contrast through small bowel. Head CTA 07/21/18 15:00 CONCLUSION: 1. Negative CTA Head. Neck CTA 07/21/18 15:25 CONCLUSION: 1. Mild to moderate atherosclerosis without hemodynamically significant carotid stenosis. Streak artifact from cervical fusion obscures portion of left common carotid artery. NG tube is present. Right vertebral artery is dominant. Chest X-Ray 07/22/18 05:00 CONCLUSION: Right base mild atelectasis or consolidation. Head CT 07/25/18 17:03 CONCLUSION: 1. Stable examination with a 2.5 cm parenchymal hemorrhage in the medial aspect of the right temporal lobe. Surrounding edema but no midline shift. 2. Stable periventricular small vessel ischemic demyelination. . Labs on day of discharge: Labs from last 24 hours 07/29/18 07/29/18 04:20 04:20 WBC 3.0 L RBC 4.09 L Hgb 12.4 L Hct 37.6 L MCV 92.1 MCH 30.3 MCHC 32.9 RDW 13.4 Plt Count 172 MPV 8.2 Neut % (Auto) 47.9 Lymph % (Auto) 35.2 Cross % (Auto) 11.9 H Eos % (Auto) 4.2 H Baso % (Auto) 0.8 Neut # (Auto) 1.4 L Lymph # (Auto) 1.0 Cross # (Auto) 0.4 Eos # (Auto) 0.1 Baso # (Auto) 0.0 WBC Differential . Differential Comment Auto diff final Sodium 134 L Potassium 4.4 Chloride 100 Carbon Dioxide 27.4 Anion Gap 7 BUN 12 Creatinine 0.73 Estimated GFR Greater than 89 Random Glucose 95 Calcium 8.2 L Phosphorus 4.4 Magnesium 2.0 Total Bilirubin 0.4 AST 17 ALT 36 Alkaline Phosphatase 52 Total Protein 5.9 L Albumin 2.5 L - Impressions ITS Impressions Abdomen/Pelvis CT 07/17/18 11:38 CONCLUSION: 1. Several loops of marginally distended proximal ileum in the left abdomen with mild fecalization and diffuse bowel wall thickening. Relative transition point in the midabdomen and left upper quadrant with decompressed proximal and distal bowel loops. Overall findings are most consistent with a partial small bowel obstruction likely secondary to adhesions. Findings are new since 2016 although the fecalization suggests a somewhat subacute etiology. No evidence for bowel infarction or perforation. 2. 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 3. Stable additional ancillary findings, as above. Abdomen X-Ray 07/19/18 06:00 CONCLUSION: 1. Stable NGT in the stomach. 2. Improved small bowel distention consistent with resolving partial small bowel obstruction. Small Bowel X-Ray 07/20/18 00:00 CONCLUSION: There is no current small bowel obstruction. There is delayed passage of contrast through small bowel. Head CTA 07/21/18 15:00 CONCLUSION: 1. Negative CTA Head. Neck CTA 07/21/18 15:25 CONCLUSION: 1. Mild to moderate atherosclerosis without hemodynamically significant carotid stenosis. Streak artifact from cervical fusion obscures portion of left common carotid artery. NG tube is present. Right vertebral artery is dominant. Chest X-Ray 07/22/18 05:00 CONCLUSION: Right base mild atelectasis or consolidation. Head CT 07/25/18 17:03 CONCLUSION: 1. Stable examination with a 2.5 cm parenchymal hemorrhage in the medial aspect of the right temporal lobe. Surrounding edema but no midline shift. 2. Stable periventricular small vessel ischemic demyelination. . Discharge Plan - Discharge Disposition Patient Disposition: Disch /Home Health Service - Discharge Condition Condition: Good - Discharge Order Discharge Orders: Discharge Order (Routine); Ordered 07/29/18 Ordered By: Harvinder Carreon - Discharge Details Anticipated Discharge Date: 07/29/18 Discharge Comment: DC TO HOME WITH [facility] - Physicians Team Primary Care Provider: Layla Chirinos Attending Provider: Harvinder Carreon Other Providers: Jakub Conner MD ; Luiz Dee ; Gene Conti MD ; Abelardo Mace MD ; Jean Carlos Reilly MD
[2018-07-29 12:39] VITALS: BP 133/76; PULSE 80; RESP 17; TEMP 98.7; O2SAT 99
== END 2018-07-29 15:45 | disposition home health service (06) ==
LOC: NEPC 11:20 → NEDA 15:52 → N06 18:27 → N03 07-21 15:18
PROVIDERS: ADMIT Hospitalist; ATTEND Hospitalist